=== PATIENT | male | born 1960 | race Caucasian/White ===

== ENCOUNTER 2021-01-17 09:09 | Outpatient (REF) | payer OTHER, SELFPAY ==
[2021-01-17 10:10] LABS: MANUAL DIFF FLAG NO
[2021-01-17 10:13] LABS: Basophils Absolute Auto 0.1 X10*3/uL (0.0-0.2); Basophils Percent Auto 0.8 % (0-2); Eosinophils Absolute Auto 0.2 X10*3/uL (0.0-0.4); Eosinophils Percent Auto 3.3 % (0-4); Hemoglobin 15.2 g/dl (14.0-18.0); Imm Gran Abs Auto 0.01 X10*3/uL (0.00-0.03); Imm Gran Pct Auto 0.2 % (0.0-0.4); Lymphocytes Absolute Auto 1.2 X10*3/uL (1.2-4.9); Lymphocytes Percent Auto 20.3 % (20-40); Mean Corpuscular HGB Conc 33.8 g/dl (31.0-36.0); Mean Corpuscular Hemoglobin 31.1 pg (27.0-33.0); Mean Platelet Volume 10.3 fL (9.4-12.4); Monocytes Absolute Auto 0.6 X10*3/uL (0.1-1.2); Monocytes Percent Auto 9.7 % (2-11); Neutrophils Percent Auto 65.7 % (45-73); Platelet Count 170 X10*3/uL (160-400); Red Blood Count 4.89 X10*6/uL (4.60-5.80); Red Cell Distribution Width 12.2 % (11.0-16.0); White Blood Count 6.1 X10*3/uL (4.8-10.8)
[2021-01-17 10:24] LABS: Estimated Average Glucose 103 mg/dL; Hemoglobin A1c % 5.2 %
[2021-01-17 10:44] LABS: Glucose Urine UA NEG (NEG); Leukocyte Esterase Urine NEG (NEG); Nitrite Urine NEG (NEG); Urine Blood NEG (NEG); Urine Ketones NEG (NEG); Urine Protein NEG (NEG-TRACE)
[2021-01-17 10:45] LABS: Appearance Urine CLEAR; Color Urine YELLOW
[2021-01-17 11:01] LABS: Alanine Aminotransferase 28 U/L (0-40); Albumin Level 4.4 g/dL (3.5-5.0); Alkaline Phosphatase 86 U/L (39-117); Anion Gap 12 (12-20); Aspartate Amino Transferase 32 U/L (5-37); Blood Urea Nitrogen 20 mg/dL (9-16); Calcium 9.3 mg/dL (8.4-10.2); Carbon Dioxide 28 mmol/L (22-29); Chloride 103 mmol/L (96-108); Cholesterol 137 mg/dL; Estimated Glomerular Filt Rate > 60; Glucose Fasting 111 mg/dL (60-99); HDL Cholesterol 61 mg/dL; LDL Cholesterol Calculated 69 mg/dl; Potassium 4.5 mmol/L (3.3-5.1); Sodium 138 mmol/L (135-145); Total Protein 6.8 g/dL (6.5-8.0); Triglycerides 39 mg/dL
[2021-01-17 11:02] LABS: Prostate Specific Antigen Scr 0.56 ng/mL (<0.05-4.0)
[2021-01-17 11:10] LABS: Creatinine Urine 132.92 mg/dL; Microalbum/Creatinine Ratio Ur 16.5 ug/mg cr
[2021-01-17 11:51] LABS: Reflex LDLD? No
== END 2021-01-17 09:10 | disposition home or self-care (01) ==
LOC: HO.LAB 09:09
PROVIDERS: PCP Internal Medicine; Visit Provider Internal Medicine
DX: Z00.00 Encounter for general adult medical examination without abnormal findings (principal); Z12.5 Encounter for screening for malignant neoplasm of prostate; R73.09 Other abnormal glucose; E78.5 Hyperlipidemia, unspecified; I10 Essential (primary) hypertension
CPT/HCPCS: 36415; 80053; 80061; 81003; 82043; 83036; 84153; 85025

== ENCOUNTER → 2021-03-13 09:46 | Outpatient (REF) | payer OTHER, SELFPAY ==
--- NOTE | 2021-03-13 09:51 | CA_ITS ---
Transthoracic Echocardiogram Patient (Last, First, Middle): Fredy Peterson W Gender: Male Date of : 1960 Age: 60 Procedure Date: 03/13/2021 Procedure Type: Transthoracic Echocardiogram Location: OP Height: 180.34 cm Weight: 108.86 kg BSA: 2.28 m2 Heart Rate: bpm BP: 120 / 84 mmHg School Psychology Professor: Referring MD: Tonny Mcdermott MD Symptoms: NONRHEUMATIC AORTIC VALVE INSUFFICIENCY. ANNUAL PE Study Quality: Good ECG Rhythm: Sinus Conclusions: - The left ventricular systolic function is normal. The visually estimated ejection fraction is between 60-65%. - There is moderate calcification of the aortic valve. There is moderate aortic valve stenosis. There is mild aortic valve regurgitation. Findings Left Ventricle Normal left ventricular cavity size. There is normal left ventricular wall thickness. The left ventricular systolic function is normal. The visually estimated ejection fraction is between 60-65%. There is no evidence of regional wall motion abnormalities. E/E prime ratio is >15, consistent with elevated filling pressures. Evidence suggests grade I (mild) diastolic dysfunction. Right Ventricle Normal right ventricular cavity size and systolic function. Atria Both atria are normal in size. Aortic Valve There is moderate calcification of the aortic valve. There is moderate aortic valve stenosis. The peak aortic velocity is 3.44 m/s with a calculated peak gradient of 47 mmHg. The mean gradient is 33 mmHg. The aortic valve area is 1.03 cm2. There is mild aortic valve regurgitation. Dimensionless index 0.36. Mitral Valve There is mild mitral annular calcification. There is trace mitral valve regurgitation. There is no mitral valve stenosis. Pulmonic Valve The pulmonic valve was not well visualized. Tricuspid Valve Normal tricuspid valve structure. There is trace tricuspid valve regurgitation. The pulmonary artery systolic pressure is normal. Great Vessels The aortic annulus, sinuses of valsalva, asc aorta, and aortic arch are normal in size. Venous The inferior vena cava is normal in size and collapses greater than 50% with inspiration. Pericardium/Pleural There is no evidence of pericardial effusion. Prior Study Comparison Changes noted compared to prior study dated: 10/26/2014. See comments on aortic valve. Measurements 2D Linear Measurements RVIDd: 4.06 RVIDd Index: 1.78 IVSd: 0.85 0.6-0.9/0.6-1.0 cm LVIDd: 5.21 3.9-5.3/4.2-5.9 cm LVIDd Index: 2.29 2.4-3.2/2.2-3.1 cm/m2 LVIDs: 3.39 2.0-3.6 cm LVPWd: 1.27 0.7-1.1 cm Ao Root: 3.20 2.1-3.5 cm LA Diam: 4.80 2.7-3.8/3.0-4.0 cm LAIDs Index: 2.11 1.5-2.3 cm/m2 LV Mass: 263.01 67-162/88-224 g LV Mass Index: 115.36 43-95/49-115 g/m2 LVOT Diam: 2.00 3.0+(-)1.3 cm 2D Systolic Function EF 4C: 53.00 >55% EF 2C: 58.20 >55% EF BiP: 55.90 >55% Mitral Valve MV Pk E: 1.02 MV PK A: 1.13 MV Decel Time: 268.00 E/A: 0.90 E'Lateral: 5.51 E'Medial: 4.93 E/E' Med: 20.70 E/E' Lat: 18.50 PHT: 78.00 MVA PHT: 2.82 Decel [place]: 3.82 Aortic Valve AoV Pk Hua: 3.44 AoV Mn Hua: 2.71 AoV VTI: 0.98 AoV Pk Grad: 47.00 Aov Mn Grad: 33.00 NAS Cont.VTI: 1.03 AI Pk Hua: 4.62 AI [place]: 1.76 LVOT LVOT Pk Hua: 1.19 LVOT Mn Hua: 0.94 LVOT VTI: 0.32 LVOT Pk Grad: 6.00 LVOT Mn Grad: 4.00 LVOT Diam: 2.00 LVOT Area: 3.14 Diastolic Function MV Pk E: 1.02 MV Pk A: 1.13 E/A: 0.90 E'Medial: 4.93 E/E' Med: 20.70 E' Laterial: 5.51 E/E' Lat: 18.50 Tricuspid Valve TR Pk Hua: 2.40 TR Pk Grad: 23.00 RA Press: 8.00 RVSP: 31.00 Great Vessels Aorta Ao Root-2D: 3.20 2.0-3.7 cm Ao Asc: 3.70 2.1-3.4 cm Ao Arch: 2.60 Updated in Other Vendor System with Status of Final Alberto Jones MD electronically signed on 03/17/2021 8:44:33 AM with status of Final
== END ==
LOC: HO.CARD 09:46
PROVIDERS: PCP Internal Medicine; Visit Provider Internal Medicine
DX: I35.1 Nonrheumatic aortic (valve) insufficiency (principal)
CPT/HCPCS: 93306

== ENCOUNTER 2021-08-01 06:42 | Outpatient (REF) | payer OTHER, SELFPAY ==
[2021-08-01 12:10] LABS: Alanine Aminotransferase 20 U/L (0-40); Albumin Level 4.2 g/dL (3.5-5.0); Alkaline Phosphatase 86 U/L (39-117); Aspartate Amino Transferase 28 U/L (5-37); Bilirubin Direct 0.4 mg/dL (0.0-0.5); Bilirubin Total 0.9 mg/dL (0.0-1.0); Cholesterol 152 mg/dL; Glucose Fasting 123 mg/dL (60-99); HDL Cholesterol 54 mg/dL; LDL Cholesterol Calculated 89 mg/dl; Total Protein 6.5 g/dL (6.5-8.0); Triglycerides 47 mg/dL
[2021-08-01 12:46] LABS: Reflex LDLD? No
[2021-08-04 13:06] LABS: Hemoglobin A1c % 5.3 %
[2021-08-04 13:07] LABS: Estimated Average Glucose 105 mg/dL
== END 2021-08-01 06:43 | disposition home or self-care (01) ==
LOC: HO.HMGCLDS 06:42
PROVIDERS: PCP Internal Medicine; Visit Provider Internal Medicine
DX: R73.03 Prediabetes (principal); E78.5 Hyperlipidemia, unspecified
CPT/HCPCS: 36415; 80061; 80076; 82947; 83036

== ENCOUNTER → 2021-10-14 08:51 | Outpatient (BNVA) | payer OTHER, SELFPAY | PROVIDERS: PCP Internal Medicine; Referring Provider Internal Medicine; Visit Provider Internal Medicine Cardiovascular Disease | DX: I35.0 Nonrheumatic aortic (valve) stenosis (principal); I10 Essential (primary) hypertension | CPT/HCPCS: 93005 ==

== ENCOUNTER 2021-11-25 10:40 | Outpatient (REF) | payer OTHER, SELFPAY | END 2021-11-25 10:41 | disposition home or self-care (01) | LOC: HO.HMGCLDS 10:40 | PROVIDERS: Visit Provider Internal Medicine | DX: Z20.822 Contact with and (suspected) exposure to COVID-19 (principal) | CPT/HCPCS: C9803; U0003; U0005 ==

== ENCOUNTER 2022-01-30 07:02 | Outpatient (REF) | payer OTHER, SELFPAY ==
[2022-01-30 11:25] LABS: Estimated Average Glucose 108 mg/dL; Hemoglobin A1c % 5.4 %
[2022-01-30 11:32] LABS: Alanine Aminotransferase 27 U/L (0-40); Albumin Level 4.3 g/dL (3.5-5.0); Alkaline Phosphatase 83 U/L (39-117); Aspartate Amino Transferase 35 U/L (5-37); Bilirubin Direct 0.4 mg/dL (0.0-0.5); Bilirubin Total 0.9 mg/dL (0.0-1.0); Cholesterol 147 mg/dL; Glucose Fasting 135 mg/dL (60-99); HDL Cholesterol 55 mg/dL; LDL Cholesterol Calculated 82 mg/dl; Triglycerides 51 mg/dL
== END 2022-01-30 07:03 | disposition home or self-care (01) ==
LOC: HO.HMGCLDS 07:02
PROVIDERS: PCP Internal Medicine; Visit Provider Internal Medicine
DX: E78.5 Hyperlipidemia, unspecified (principal); R73.09 Other abnormal glucose
CPT/HCPCS: 36415; 80061; 80076; 82947; 83036

== ENCOUNTER 2022-02-08 16:48 | Outpatient (REF) | payer OTHER, SELFPAY ==
[2022-02-08 16:53] LABS: MANUAL DIFF FLAG NO
[2022-02-08 17:01] LABS: Basophils Absolute Auto 0.1 X10*3/uL (0.0-0.2); Basophils Percent Auto 0.9 % (0-2); Eosinophils Absolute Auto 0.3 X10*3/uL (0.0-0.4); Eosinophils Percent Auto 3.9 % (0-4); Hematocrit 43.4 % (42.0-52.0); Hemoglobin 15.1 g/dl (14.0-18.0); Imm Gran Abs Auto 0.02 X10*3/uL (0.00-0.03); Imm Gran Pct Auto 0.3 % (0.0-0.4); Lymphocytes Absolute Auto 2.2 X10*3/uL (1.2-4.9); Lymphocytes Percent Auto 29.2 % (20-40); Mean Corpuscular HGB Conc 34.8 g/dl (31.0-36.0); Mean Corpuscular Hemoglobin 31.7 pg (27.0-33.0); Mean Corpuscular Volume 91.2 fL (80.0-98.0); Mean Platelet Volume 10.5 fL (9.4-12.4); Monocytes Absolute Auto 0.7 X10*3/uL (0.1-1.2); Monocytes Percent Auto 9.3 % (2-11); Neutrophils Absolute Auto 4.3 x10*3/uL (2.0-8.3); Neutrophils Percent Auto 56.4 % (45-73); Platelet Count 179 X10*3/uL (160-400); Red Blood Count 4.76 X10*6/uL (4.60-5.80); Red Cell Distribution Width 12.5 % (11.0-16.0); White Blood Count 7.7 X10*3/uL (4.8-10.8)
[2022-02-08 17:31] LABS: Blood Urea Nitrogen 18 mg/dL (9-16); Calcium 10.7 mg/dL (8.4-10.2); Estimated Glomerular Filt Rate > 60
[2022-02-08 17:39] LABS: Prostate Specific Antigen 0.54 ng/mL (<0.05-4.0)
== END 2022-02-08 16:49 | disposition home or self-care (01) ==
LOC: HO.LNP 16:48
PROVIDERS: Visit Provider Internal Medicine
DX: Z00.00 Encounter for general adult medical examination without abnormal findings (principal); Z12.5 Encounter for screening for malignant neoplasm of prostate
CPT/HCPCS: 82310; 82565; 84153; 84520; 85025

== ENCOUNTER 2022-03-20 10:51 | Outpatient (REF) | payer OTHER, SELFPAY ==
[2022-03-20 12:19] LABS: Calcium 9.5 mg/dL (8.4-10.2)
== END 2022-03-20 10:52 | disposition home or self-care (01) ==
LOC: HO.HMGCLDS 10:51
PROVIDERS: Visit Provider Internal Medicine
DX: E83.52 Hypercalcemia (principal)
CPT/HCPCS: 36415; 82310

== ENCOUNTER → 2022-04-19 08:11 | Outpatient (REF) | payer OTHER, SELFPAY ==
--- NOTE | 2022-04-19 08:19 | CA_ITS ---
Transthoracic Echocardiogram Patient (Last, First, Middle): Fredy Peterson W Gender: Male Date of : 1960 Age: 61 Procedure Date: 04/19/2022 Procedure Type: Transthoracic Echocardiogram Location: OP Height: 180.34 cm Weight: 108.86 kg BSA: 2.28 m2 Heart Rate: bpm BP: 160 / 100 mmHg Pot Reliner: TO Referring MD: Eric Gaytan MD Symptoms: I35.0 - Nonrheumatic aortic (valve) stenosis Study Quality: Adequate ECG Rhythm: Sinus Conclusions: - The left ventricular systolic function is normal. The calculated ejection fraction is 61% by biplane method. - There is moderate aortic valve stenosis. - There is mild dilatation of the ascending aorta measuring 4.10 cm. Findings Left Ventricle Normal left ventricular cavity size. There is mildly increased left ventricular wall thickness. The left ventricular systolic function is normal. The calculated ejection fraction is 61% by biplane method. There is no evidence of regional wall motion abnormalities. Diastolic function is normal for age. Right Ventricle Normal right ventricular cavity size and systolic function. Atria The left atrium is moderately dilated. The right atrium is normal in size. Aortic Valve There is moderate calcification of the aortic valve. There is moderate aortic valve stenosis. The peak aortic velocity is 3.86 m/s with a calculated peak gradient of 60 mmHg. The mean gradient is 37 mmHg. The aortic valve area is 1.19 cm2. There is mild aortic valve regurgitation. Dimensionless index 0.32. Highest gradient from apical window- 60mmHg. Mitral Valve The mitral valve appears normal. There is mild mitral annular calcification. There is no mitral valve regurgitation. There is no mitral valve stenosis. Pulmonic Valve The pulmonic valve is likely normal. Tricuspid Valve Normal tricuspid valve structure. There is trace tricuspid valve regurgitation. The pulmonary artery systolic pressure is normal. Great Vessels There is mild dilatation of the ascending aorta measuring 4.10 cm. Venous The inferior vena cava is normal in size and collapses greater than 50% with inspiration. Pericardium/Pleural There is no evidence of pericardial effusion. Prior Study Comparison Changes noted compared to prior study dated: 03/13/2021. Progression of aortic valve stenosis. Slight increase in ascending aortic size. Measurements 2D Linear Measurements IVSd: 1.43 0.6-0.9/0.6-1.0 cm LVIDd: 4.15 3.9-5.3/4.2-5.9 cm LVIDd Index: 1.82 2.4-3.2/2.2-3.1 cm/m2 LVIDs: 2.10 2.0-3.6 cm LVPWd: 1.32 0.7-1.1 cm LA Diam: 4.80 2.7-3.8/3.0-4.0 cm LAIDs Index: 2.11 1.5-2.3 cm/m2 LV Mass: 267.32 67-162/88-224 g LV Mass Index: 117.24 43-95/49-115 g/m2 LVOT Diam: 2.10 3.0+(-)1.3 cm 2D Systolic Function EF 4C: 66.10 >55% EF 2C: 55.70 >55% EF BiP: 60.50 >55% Mitral Valve MV Pk E: 0.96 MV PK A: 1.14 MV Decel Time: 268.00 E/A: 0.80 E'Lateral: 5.33 E'Medial: 4.79 E/E' Med: 20.10 E/E' Lat: 18.10 PHT: 79.00 MVA PHT: 2.78 Decel [place]: 3.59 Aortic Valve AoV Pk Hua: 3.86 AoV Mn Hua: 2.87 AoV VTI: 0.95 AoV Pk Grad: 60.00 Aov Mn Grad: 37.00 NAS Cont.VTI: 1.19 AI Pk Hua: 4.98 AI [place]: 3.02 LVOT LVOT Pk Hua: 1.31 LVOT Mn Hua: 0.93 LVOT VTI: 0.33 LVOT Pk Grad: 7.00 LVOT Mn Grad: 4.00 LVOT Diam: 2.10 LVOT Area: 3.46 Diastolic Function MV Pk E: 0.96 MV Pk A: 1.14 E/A: 0.80 E'Medial: 4.79 E/E' Med: 20.10 E' Laterial: 5.33 E/E' Lat: 18.10 Right Ventricle TAPSE (mm): 32.00 TVS' Hua: 14.00 Tricuspid Valve TR Pk Hua: 1.79 TR Pk Grad: 13.00 RA Press: 3.00 RVSP: 16.00 Great Vessels Aorta Ao Asc: 4.10 2.1-3.4 cm Updated in Other Vendor System with Status of Final Alberto Jones MD electronically signed on 04/20/2022 4:39:24 PM with status of Final
== END ==
LOC: HO.CARD 08:11
PROVIDERS: PCP Internal Medicine; Visit Provider Internal Medicine Cardiovascular Disease
DX: I35.0 Nonrheumatic aortic (valve) stenosis (principal)
CPT/HCPCS: 93306

== ENCOUNTER → 2022-04-22 15:08 | Outpatient (BNVA) | payer OTHER, SELFPAY | PROVIDERS: PCP Internal Medicine; Referring Provider Internal Medicine; Visit Provider Internal Medicine Cardiovascular Disease | DX: R06.02 Shortness of breath (principal) ==

== ENCOUNTER → 2022-05-14 08:55 | Outpatient (REF) | payer OTHER, SELFPAY ==
--- NOTE | ~2022-05-14 | NM_ITS ---
Exercise Myocardial perfusion study Indication: Chest pain to evaluate for myocardial ischemia Technique: The patient was brought in for an exercise perfusion study on 05/14/2022. Patient performed exercise as per Yang protocol and was injected 35 mCi of sestamibi was given intravenously one target HR was achieved. Images were obtained using the SPECT gamma camera interlaced with the gating device. Images were obtained in supine position. Resting perfusion study was performed on 05/17/2022. Patient was administered 35 mCi of sestamibi intravenously at rest. Images were then obtained in supine position. Images obtained with and without CT attenuation. Total DLP 104 mGy-cm. Images were processed with the software and compared side to side in short axis, horizontal long axis and vertical long axis views. Findings: The stress perfusion study showed non attenuated images show small area of mildly reduced uptake in the basal inferior wall of the LV myocardium. Remainder of the LV myocardium is normally perfused. Attenuation corrected images show normal uptake of radiotracer in all segments of LV myocardium. The gated study shows normal LV systolic function with calculated LVEF of 74%. LV cavity is normal in size. The gated study shows normal systolic wall thickening and contraction of all segments. There is no transient ischemic dilation. Resting study shows no change in perfusion pattern compared to stress perfusion study. Gating at rest reveals normal systolic wall motion with ejection fraction at 73%. The findings are consistent with normal myocardial perfusion. NM/NM cardiolite stress test Impression: 1. Normal myocardial perfusion 2. Gated LVEF is 74% 3. Transient ischemic dilatation not present Stress EKG is positive for ischemia
--- NOTE | 2022-05-14 08:57 | CA_ITS ---
Acquisition Time: 2022-05-14 09:01:39 Total Exercise Time: 00:07:10 Test Indications: Dyspnea Medications: ASA ATORVASTATIN LISINOPRIL/HCTZ Protocol: JEANNA Max HR: 137 BPM 87% of Pred: 157 BPM Max BP: 194/080 mmHG Max Work Load: 8.9 METS Exercise stress test with exercise 7 min 10 sec of Jeanna protocol, achieving 87% MPHR, 8.8 METs with report of moderate sob, 7/10 lung burning ( upper chest), with isolated PACs and PVCs, with normotensive response to exercise, with EKG abnormality at baseline ( downsloping ST with T inversion inferiorly and V5-V6) then with ST depression in those leads during exercise: 2 mm lead II, 1.5mm leads III, aVF, V6 and 1 mm V5 with gradual improvement in recovery, back to baseline. His lung burning gradually improved and resolved in recovery. When baseline and test end EKGs rechecked in an actual 12 lead placement, instead of stress mechanic general operational test placement, the EKGs show ST/ T wave abn lateral leads and lead II. Nuclear images pending. Test reviewed with Dr Gaytan Referred By: Eric Gaytan Overread By: TIFFANEI KWON
== END ==
LOC: HO.CARD 08:55
PROVIDERS: Visit Provider Internal Medicine Cardiovascular Disease
DX: R07.9 Chest pain, unspecified (principal); I35.0 Nonrheumatic aortic (valve) stenosis; R06.02 Shortness of breath
CPT/HCPCS: 78452; 93017; A9500

== ENCOUNTER 2022-06-07 15:21 | Outpatient (REF) | payer OTHER, SELFPAY ==
[2022-06-07 16:12] LABS: Hematocrit 40.2 % (42.0-52.0); Hemoglobin 13.9 g/dl (14.0-18.0); Mean Corpuscular HGB Conc 34.6 g/dl (31.0-36.0); Mean Corpuscular Hemoglobin 31.2 pg (27.0-33.0); Mean Corpuscular Volume 90.1 fL (80.0-98.0); Mean Platelet Volume 10.3 fL (9.4-12.4); Platelet Count 187 X10*3/uL (160-400); Red Blood Count 4.46 X10*6/uL (4.60-5.80); Red Cell Distribution Width 12.5 % (11.0-16.0); White Blood Count 6.6 X10*3/uL (4.8-10.8)
[2022-06-07 16:29] LABS: Prothrombin Time 11.2 SEC (10.0-13.1)
[2022-06-07 16:57] LABS: Anion Gap 12 (12-20); Blood Urea Nitrogen 17 mg/dL (9-16); Calcium 9.6 mg/dL (8.4-10.2); Carbon Dioxide 26 mmol/L (22-29); Chloride 106 mmol/L (96-108); Estimated Glomerular Filt Rate > 60; Glucose Random 91 mg/dL (60-115); Sodium 140 mmol/L (135-145)
== END 2022-06-07 15:22 | disposition home or self-care (01) ==
LOC: HO.LAB 15:21
PROVIDERS: PCP Internal Medicine; Visit Provider Internal Medicine Cardiovascular Disease
DX: I35.0 Nonrheumatic aortic (valve) stenosis (principal)
CPT/HCPCS: 36415; 80048; 85027; 85610

== ENCOUNTER → 2022-07-19 10:07 | Outpatient (BNVA) | payer SELFPAY | PROVIDERS: PCP Internal Medicine; Visit Provider Physician Assistant Medical | DX: Z02.79 Encounter for issue of other medical certificate (principal) ==

== ENCOUNTER 2022-08-05 15:41 | Outpatient (REF) | payer OTHER, SELFPAY ==
--- NOTE | 2022-08-05 17:12 | PFT_ITS ---
FLOWS: FEV1 74% of predicted at 2.69 L. FVC 67% of predicted at 3.25 L. FEV1 to FVC ratio of 0.83. Positive bronchodilator response. LUNG VOLUMES: Total lung capacity 70% of predicted at 5.09 L. Residual volume 80% of predicted at 1.91 L. Slow vital capacity 65% of predicted at 3.18 L. Expiratory reserve volume 9% of predicted at 0.14 L. Diffusion capacity is mildly decreased, diffusion capacity corrects to normal after adjustment for alveolar ventilation. IMPRESSION: Moderate restrictive ventilatory defect with positive bronchodilator response. Decreased expiratory reserve volume suggests extrathoracic restriction likely secondary to abdominal obesity. Willie Alberto MD AP/MODL / [id number]
== END 2022-08-05 15:42 | disposition home or self-care (01) ==
LOC: HO.RESP 15:41
PROVIDERS: PCP Internal Medicine; Visit Provider Nurse Practitioner Family
DX: R06.02 Shortness of breath (principal)
CPT/HCPCS: 94060; 94727; 94729

== ENCOUNTER 2022-08-14 10:41 | Outpatient (REF) | payer OTHER, SELFPAY ==
[2022-08-14 11:27] LABS: Estimated Average Glucose 114 mg/dL; Hemoglobin A1c % 5.6 %
[2022-08-14 11:48] LABS: Alanine Aminotransferase 26 U/L (0-40); Albumin Level 4.2 g/dL (3.5-5.0); Alkaline Phosphatase 86 U/L (39-117); Aspartate Amino Transferase 31 U/L (5-37); Bilirubin Direct 0.4 mg/dL (0.0-0.5); Bilirubin Total 0.9 mg/dL (0.0-1.0); Cholesterol 134 mg/dL; Glucose Fasting 112 mg/dL (60-99); HDL Cholesterol 53 mg/dL; LDL Cholesterol Calculated 73 mg/dl; Total Protein 6.6 g/dL (6.5-8.0); Triglycerides 42 mg/dL
== END 2022-08-14 10:42 | disposition home or self-care (01) ==
LOC: HO.HMGCLDS 10:41
PROVIDERS: PCP Internal Medicine; Visit Provider Internal Medicine
DX: R73.03 Prediabetes (principal); E78.5 Hyperlipidemia, unspecified
CPT/HCPCS: 36415; 80061; 80076; 82947; 83036

== ENCOUNTER 2022-10-19 15:11 | Outpatient (REF) | payer OTHER, SELFPAY ==
--- NOTE | ~2022-10-19 | XR_ITS ---
EXAMINATION: XR CHEST CLINICAL INFORMATION: Shortness of breath. COMPARISON: Previous dated 06/05/2010. TECHNIQUE: 2 views of the chest were obtained. FINDINGS: There is no acute finding here. Lung mcgee are grossly clear. No obvious failure or infiltrate. There is no effusion. The hilar structures are felt to be comparable to previous. The cardiac silhouette is comparable. Calcification in the aortic arch is noted on this study. Degenerative change in the thoracic spine with some mildly flowing osteophytes noted. XR/XR chest 2V IMPRESSION: No acute finding.
== END 2022-10-19 15:12 | disposition home or self-care (01) ==
LOC: HO.XRAY 15:11
PROVIDERS: PCP Internal Medicine; Visit Provider Internal Medicine
DX: R06.02 Shortness of breath (principal)
CPT/HCPCS: 71046

== ENCOUNTER → 2022-12-01 14:46 | Outpatient (REF) | payer OTHER, SELFPAY ==
--- NOTE | 2022-12-01 14:49 | CA_ITS ---
Transthoracic Echocardiogram Patient (Last, First, Middle): Fredy Peterson W Gender: Male Date of : 1960 Age: 62 Procedure Date: 12/01/2022 Procedure Type: Transthoracic Echocardiogram Location: OP Height: 180.34 cm Weight: 111.13 kg BSA: 2.30 m2 Heart Rate: bpm BP: 124 / 68 mmHg Vending Machine Technician: LILI Referring MD: Jo-Ann Mcdaniels SORTING MACHINE OPERATORDemond Symptoms: I35.0 - Nonrheumatic aortic (valve) stenosis Study Quality: Adequate ECG Rhythm: Sinus Conclusions: - The left ventricular systolic function is normal. The calculated ejection fraction is 62% by biplane method. - There is severe aortic valve stenosis. - There is mild dilatation of the ascending aorta measuring 4.20 cm. Findings Left Ventricle Normal left ventricular cavity size. There is moderately increased left ventricular wall thickness. The left ventricular systolic function is normal. The calculated ejection fraction is 62% by biplane method. There is no evidence of regional wall motion abnormalities. Evidence suggests grade I (mild) diastolic dysfunction. Right Ventricle Normal right ventricular cavity size and systolic function. Atria The left atrium is moderately dilated. The right atrium is normal in size. Aortic Valve There is severe calcification of the aortic valve. There is severe aortic valve stenosis. The peak aortic velocity is 4.18 m/s with a calculated peak gradient of 70 mmHg. The mean gradient is 41 mmHg. The aortic valve area is 1.20 cm2. There is trace (trivial) aortic valve regurgitation. Dimensionless index 0.27. Calculated valve area larger than expected at 1.2 sq cm, but LVOT diameter was also measured at 2.3 cm. This could be technical. Mitral Valve The mitral valve appears normal. There is mild mitral annular calcification. There is trace mitral valve regurgitation. There is no mitral valve stenosis. Pulmonic Valve The pulmonic valve is likely normal. Tricuspid Valve Normal tricuspid valve structure. There is trace tricuspid valve regurgitation. Great Vessels There is mild dilatation of the ascending aorta measuring 4.20 cm. Venous The inferior vena cava is normal in size and collapses greater than 50% with inspiration. Pericardium/Pleural There is a trivial pericardial effusion. Prior Study Comparison Changes noted compared to prior study dated: 04/19/2022. Progression of aortic valve stenosis. Measurements 2D Linear Measurements IVSd: 1.57 0.6-0.9/0.6-1.0 cm LVIDd: 4.45 3.9-5.3/4.2-5.9 cm LVIDd Index: 1.93 2.4-3.2/2.2-3.1 cm/m2 LVIDs: 2.86 2.0-3.6 cm LVPWd: 1.53 0.7-1.1 cm Ao Root: 3.50 2.1-3.5 cm LA Diam: 5.00 2.7-3.8/3.0-4.0 cm LAIDs Index: 2.17 1.5-2.3 cm/m2 LV Mass: 355.94 67-162/88-224 g LV Mass Index: 154.76 43-95/49-115 g/m2 LVOT Diam: 2.30 3.0+(-)1.3 cm 2D Systolic Function EF 4C: 63.00 >55% EF 2C: 58.90 >55% EF BiP: 61.90 >55% Mitral Valve MV VTI: 0.46 MV Pk Hua: 1.21 MV Mn Hua: 0.70 MV Pk Grad: 6.00 MV Mn Grad: 2.00 MV Pk E: 0.89 MV PK A: 1.14 MV Decel Time: 215.00 E/A: 0.80 E'Lateral: 4.24 E'Medial: 4.90 E/E' Med: 18.20 E/E' Lat: 21.10 PHT: 63.00 MVA PHT: 3.49 MVA Continuity: 2.75 Decel [place]: 4.16 Aortic Valve AoV Pk Hua: 4.18 AoV Mn Hua: 2.98 AoV VTI: 1.05 AoV Pk Grad: 70.00 Aov Mn Grad: 41.00 NAS Cont.VTI: 1.20 LVOT LVOT Pk Hua: 1.14 LVOT Mn Hua: 0.83 LVOT VTI: 0.30 LVOT Pk Grad: 5.00 LVOT Mn Grad: 3.00 LVOT Diam: 2.30 LVOT Area: 4.15 Diastolic Function MV Pk E: 0.89 MV Pk A: 1.14 E/A: 0.80 E'Medial: 4.90 E/E' Med: 18.20 E' Laterial: 4.24 E/E' Lat: 21.10 Right Ventricle TAPSE (mm): 29.10 TVS' Hua: 11.60 Tricuspid Valve TR Pk Hua: 2.06 TR Pk Grad: 17.00 Great Vessels Aorta Ao Root-2D: 3.50 2.0-3.7 cm Ao Asc: 4.20 2.1-3.4 cm Pulmonary Valve PV Pk Hua: 1.18 Peak PV Grad: 6.00 Updated in Other Vendor System with Status of Final Alberto Jones MD electronically signed on 12/03/2022 12:34:39 PM with status of Final
== END ==
LOC: HO.CARD 14:46
PROVIDERS: PCP Internal Medicine; Visit Provider Nurse Practitioner Family
DX: I35.0 Nonrheumatic aortic (valve) stenosis (principal); R06.02 Shortness of breath
CPT/HCPCS: 93306

== ENCOUNTER → 2022-12-28 15:09 | Outpatient (BNVA) | payer OTHER, SELFPAY | PROVIDERS: PCP Internal Medicine; Referring Provider Internal Medicine; Visit Provider Internal Medicine Cardiovascular Disease | DX: Z13.89 Encounter for screening for other disorder (principal) ==

== ENCOUNTER 2023-02-05 08:15 | Outpatient (REF) | payer OTHER, SELFPAY ==
[2023-02-05 11:19] LABS: MANUAL DIFF FLAG NO
[2023-02-05 11:20] LABS: Appearance Urine Clear; Color Urine Yellow; Glucose Urine UA Negative (Negative); Leukocyte Esterase Urine Negative (Negative); Nitrite Urine Negative (Negative); PH 5.5 (5.0-9.0); Urine Blood Negative (Negative); Urine Ketones Negative (Negative); Urine Protein Negative (Neg-Trace)
[2023-02-05 11:26] LABS: Basophils Absolute Auto 0.1 X10*3/uL (0.0-0.2); Basophils Percent Auto 0.8 % (0-2); Eosinophils Absolute Auto 0.2 X10*3/uL (0.0-0.4); Hematocrit 41.1 % (42.0-52.0); Hemoglobin 14.4 g/dl (14.0-18.0); Imm Gran Abs Auto 0.02 X10*3/uL (0.00-0.03); Imm Gran Pct Auto 0.3 % (0.0-0.4); Lymphocytes Absolute Auto 1.1 X10*3/uL (1.2-4.9); Lymphocytes Percent Auto 18.8 % (20-40); Mean Corpuscular Hemoglobin 31.4 pg (27.0-33.0); Mean Corpuscular Volume 89.7 fL (80.0-98.0); Mean Platelet Volume 10.9 fL (9.4-12.4); Monocytes Absolute Auto 0.5 X10*3/uL (0.1-1.2); Monocytes Percent Auto 8.3 % (2-11); Neutrophils Absolute Auto 4.1 x10*3/uL (2.0-8.3); Neutrophils Percent Auto 67.8 % (45-73); Platelet Count 165 X10*3/uL (160-400); Red Blood Count 4.58 X10*6/uL (4.60-5.80); Red Cell Distribution Width 12.3 % (11.0-16.0)
[2023-02-05 11:36] LABS: Estimated Average Glucose 114 mg/dL; Hemoglobin A1c % 5.6 %
[2023-02-05 11:42] LABS: Alanine Aminotransferase 24 U/L (0-40); Albumin Level 4.1 g/dL (3.5-5.0); Alkaline Phosphatase 90 U/L (39-117); Anion Gap 11 (12-20); Aspartate Amino Transferase 31 U/L (5-37); Bilirubin Total 0.8 mg/dL (0.0-1.0); Blood Urea Nitrogen 17 mg/dL (9-16); Calcium 8.9 mg/dL (8.4-10.2); Carbon Dioxide 26 mmol/L (22-29); Chloride 104 mmol/L (96-108); Cholesterol 152 mg/dL; Estimated Glomerular Filt Rate > 60; Glucose Fasting 133 mg/dL (60-99); HDL Cholesterol 55 mg/dL; LDL Cholesterol Calculated 88 mg/dl; Potassium 3.9 mmol/L (3.3-5.1); Sodium 137 mmol/L (135-145); Total Protein 6.3 g/dL (6.5-8.0); Triglycerides 46 mg/dL
[2023-02-05 11:58] LABS: PSA,Total (Free>4and<10) 0.53 ng/mL (0.00-4.00)
[2023-02-05 12:01] LABS: Creatinine Urine 133.47 mg/dL; Microalbum/Creatinine Ratio Ur 32.2 ug/mg cr
== END 2023-02-05 08:16 | disposition home or self-care (01) ==
LOC: HO.HMGCLDS 08:15
PROVIDERS: PCP Internal Medicine; Visit Provider Internal Medicine
DX: Z00.00 Encounter for general adult medical examination without abnormal findings (principal); Z12.5 Encounter for screening for malignant neoplasm of prostate; E78.5 Hyperlipidemia, unspecified; I10 Essential (primary) hypertension; R73.03 Prediabetes
CPT/HCPCS: 36415; 80053; 80061; 81003; 82043; 83036; 84153; 85025

== ENCOUNTER → 2023-03-01 15:13 | Outpatient (BNVA) | payer OTHER, SELFPAY | PROVIDERS: PCP Internal Medicine; Referring Provider Internal Medicine; Visit Provider Internal Medicine Cardiovascular Disease | DX: Z13.89 Encounter for screening for other disorder (principal) ==

== ENCOUNTER 2023-04-15 09:42 | Outpatient (REF) | payer OTHER, SELFPAY ==
--- NOTE | ~2023-04-15 | US_ITS ---
EXAMINATION: US EXTRACRANIAL CAROTID DUPLEX, BILATERAL CLINICAL INFORMATION: Carotid bruit. History of smoking, hypertension, hyperlipidemia COMPARISON: None available. TECHNIQUE: Real-time ultrasound and Doppler techniques (integrating B-mode 2-D vascular images, Doppler spectral analysis and color-flow Doppler imaging) were utilized to interrogate the extracranial carotid arteries, the vertebral arteries and proximal subclavian arteries bilaterally. The degree of stenosis is determined by criteria similar to NASCET. FINDINGS: Right Side: 1. There is mild atherosclerotic plaque seen in the bifurcation/proximal ICA region. 2. The common carotid artery PSV proximally is 103 cm/s and distally 90 cm/s. 3. The proximal internal carotid artery velocities are 63 cm/s systolic and 16 cm/s diastolic. 4. The proximal external carotid artery PSV is 83 cm/s. 5. The vertebral artery shows antegrade flow. 6. The subclavian artery waveforms are normal. Left Side: 1. There is mild atherosclerotic plaque seen in the bifurcation/proximal ICA region. 2. The common carotid artery PSV proximally is 90 cm/s and distally 70 cm/s. 3. The proximal internal carotid artery velocities are 87 cm/s systolic and 26 cm/s diastolic. 4. The proximal external carotid artery PSV is 97 cm/s. 5. The vertebral artery shows antegrade flow. 6. The subclavian artery waveforms are normal. Incidental note made of an irregular cardiac rhythm. US/US carotid duplex BI IMPRESSION: 1. RIGHT: Minimal, non-hemodynamically significant stenosis of the proximal right internal carotid artery corresponding to a 0-49% stenosis by velocity criteria. 2. LEFT: Minimal, non-hemodynamically significant stenosis of the proximal left internal carotid artery corresponding to a 0-49% stenosis by velocity criteria. 3. Incidental note made of an irregular cardiac rhythm.
== END 2023-04-15 09:43 | disposition home or self-care (01) ==
LOC: HO.HMGCX 09:42
PROVIDERS: PCP Internal Medicine; Visit Provider Thoracic Surgery (Cardiothoracic Vascular Surgery)
DX: I35.9 Nonrheumatic aortic valve disorder, unspecified (principal); R09.89 Other specified symptoms and signs involving the circulatory and respiratory systems
CPT/HCPCS: 93880

== ENCOUNTER 2023-06-06 14:56 | Outpatient (AMB) | payer OTHER, SELFPAY ==
--- NOTE | 2023-06-06 14:57 | MHC.OFFVIS ---
Intake Vital Signs 06/06/23 14:58 Height 5 ft 11 in Weight 229 lb 4.492 oz BMI 32.0 BP 122/78 Blood Pressure Location Lt brachial Position Sitting Pulse 62 Intake Visit Reasons: 3 month follow-up Intake Note: Follow-up post May 03 TAVR c/o fatigue and some pain in chest Financial Aid Counselor Required: No Allergies Penicillins Allergy (Intermediate, Verified 07/07/22 13:24) RASH Medication List - Last Reconciled 06/06/23 by Eric Gaytan MD amiodarone 200 mg PO BID aspirin (Ecotrin Low Strength) 81 mg PO DAILY atorvastatin 40 mg PO DAILY lisinopril-hydrochlorothiazide 10-12.5 mg 1 tab PO DAILY HPI HPI Comments History of Present Illness Details Ed comes for follow-up after recent cannot surgery very underwent aortic valve replacement with a 25 mm bioprosthetic valve. Unfortunately surgery was complicated with bleeding at the aortotomy site requiring redo surgery for cardiac tamponade. Patient been was released home after 7 days of hospitalization with aspirin, amiodarone for prophylaxis and his usual blood pressure medications. He has done well since then. Continues to have symptoms of tiredness. Denies any worsening shortness of breath, orthopnea, PND, leg edema, palpitations. He is scheduled to undergo cardiac rehabilitation starting tomorrow. Schedule for echocardiogram in 2 weeks from now. He denies any overt bleeding issues. [facility] Medical History Aortic stenosis HTN (hypertension) Hyperlipidemia Pancreatitis Peyronie's disease Sleep apnea Surgical History (Updated 06/06/23 @ 15:39 by Eric Gaytan MD) Aortic valve replaced H/O colonoscopy Hx laparoscopic cholecystectomy S/P cardiac catheterization Family History Father No problems noted. Mother AML (acute myeloblastic leukemia) Brother CAD (coronary artery disease) Social History Alcohol intake: never Patient Tobacco Use Status: Former Tobacco user Review of Systems Const Denies chills, Denies fatigue, Denies fever(s), Denies frequent falls, Denies weakness, Denies weight gain and Denies weight loss ENT Denies dizziness Card Denies chest pain, Denies leg edema, Denies lightheadedness, Denies palpitations, Denies dyspnea, Denies dyspnea on exertion, Denies orthopnea and Denies other (loss of consciousness) Resp Denies cough, Denies dyspnea and Denies dyspnea on exertion GI Denies hematochezia and Denies change in stool character Musc Denies abnormal gait, Denies muscle weakness, Denies numbness, Denies radiating pain into limb and Denies tingling Neuro Denies abnormal gait, Denies dizziness, Denies frequent falls, Denies numbness, Denies tingling and Denies weakness Endo Denies fatigue and Denies palpitations Physical Exam Vital Signs: Last Vital Signs Pulse 62 06/06/23 14:58 BP 122/78 06/06/23 14:58 BMI result Body Mass Index 32.0 Const General: cooperative, healthy appearing, comfortable and no acute distress Orientation/consciousness: patient oriented x3 Neck Neck: Yes normal visual inspection and Yes no JVD Chest Chest palpation & inspection: other (Well-healed sternotomy site) Resp Effort & Inspection: normal respiratory effort Auscultation: clear to auscultation bilaterally, no crackles, no rales, no rhonchi and no wheezes Cardio Jugular venous distension: no JVD Palpation: normal PMI Rate: regular rate Rhythm: regular rhythm Heart sounds: S1 normal heart sound present, no gallops, no murmurs and no rubs Peripheral pulses: Peripheral pulses 2+ throughout Neuro General: patient oriented x3 Extrem General: Yes normal to inspection and No no pedal edema Psych Appearance: grossly normal Mental Status: mental status grossly normal Speech and movement: Normal speech and movement present Assessment & Plan Assessment & Plan (1) Aortic valve replaced: Comment: 25 mm Inspiris valve Code(s): Z95.2 - Presence of prosthetic heart valve Plan: Patient status post bioprosthetic aortic valve replaced for severe calcific aortic stenosis with a trileaflet valve. Patient is doing well. The sternal wound seems to have healed well. Patient continues to have some symptoms of fatigue which could be related to anemia. Advised to check CBC and BMP. If anemic start iron therapy. Continue amiodarone as planned for total of for total of 6 weeks since surgery. Can be stopped after that. Echocardiogram to assess for valve function as well as LV systolic and diastolic function. Continue low-dose aspirin therapy for life. Continue aggressive vascular risk factor modification target goal LDL less than 100 mg/dL. SBE prophylaxis as per ACC/aha guidelines. Continue aggressive blood pressure control which is currently well optimized. Recommend phase 2 cardiac rehabilitation which is going to participate in. If echo is reasonable patient is optimized to go back to work without restriction. Will follow up in the clinic in 6 months time, sooner p.r.n.. Thank you for allowing me to partake in his care Coding Level of Care Code Est Pt Level 4 (70371) Diagnoses Aortic valve replaced Z95.2
[2023-06-06 14:58] VITALS: BP 122/78; PULSE 62; BMI 32.0
== END 2023-06-06 15:45 | disposition home or self-care (01) ==
PROVIDERS: Visit Provider Internal Medicine Cardiovascular Disease
DX: Z95.2 Presence of prosthetic heart valve (principal)
CPT/HCPCS: 99214

== ENCOUNTER → 2023-06-06 14:56 | Outpatient (BNVA) | payer OTHER, SELFPAY | PROVIDERS: Visit Provider Internal Medicine Cardiovascular Disease ==

== ENCOUNTER → 2023-06-21 07:39 | Outpatient (REF) | payer OTHER, SELFPAY ==
--- NOTE | 2023-06-21 07:43 | CA_ITS ---
Transthoracic Echocardiogram Patient (Last, First, Middle): Fredy Peterson W Gender: Male Date of : 1960 Age: 62 Procedure Date: 06/21/2023 Procedure Type: Transthoracic Echocardiogram Location: OP Height: 180.34 cm Weight: 104.33 kg BSA: 2.24 m2 Heart Rate: bpm BP: 128 / 70 mmHg Refrigeration Technician: Referring MD: Eric Gaytan MD Weaver [place]: Eric Gaytan MD Symptoms: s/p AVR Study Quality: Adequate ECG Rhythm: Sinus Conclusions: - 1. Normal LV ejection fraction of 60-65% with moderate LVH and grade 2 diastolic dysfunction 2. Normally function bioprosthetic aortic valve with mean gradient of 7 mmHg 3. Mildly dilated left atrium 4. Normal RV systolic pressure 5. Mildly dilated ascending aorta at 4.3 cm 6. No pericardial effusion Findings Left Ventricle Normal left ventricular size and systolic function. There is moderately increased left ventricular wall thickness. The visually estimated ejection fraction is between 60-65%. Spectral Doppler is indicative of a pseudonormal filling pattern. E/E prime ratio is >15, consistent with elevated filling pressures. Evidence suggests grade II (moderate) diastolic dysfunction. Right Ventricle Normal right ventricular cavity size and systolic function. Atria The left atrium is mildly dilated. There is no evidence of interatrial shunt. The right atrium is normal in size. Aortic Valve A bioprosthetic aortic valve is present. The prosthetic aortic valve appears to be functioning normally. The mean gradient is 7 mmHg. There is trace (trivial) aortic valve regurgitation. The bioprosthetic valve is well seated without abnormal rocking motion. Mitral Valve Normal mitral valve structure and function. There is trace mitral valve regurgitation. There is no mitral valve stenosis. Pulmonic Valve The pulmonic valve is likely normal. There is trace pulmonic valve regurgitation. Tricuspid Valve Normal tricuspid valve structure. There is mild tricuspid valve regurgitation. The right ventricular systolic pressure is normal. The right ventricular systolic pressure is 26 mmHg. Normal right atrial pressure. There is no evidence of pulmonary hypertension. Great Vessels The pulmonary artery was not well visualized. There is mild dilatation of the ascending aorta measuring 4.30 cm. Venous The inferior vena cava is normal in size and collapses greater than 50% with inspiration. Pericardium/Pleural There is no evidence of pericardial effusion. Prior Study Comparison Changes noted compared to prior study dated: 12/01/2022. Normally function bioprosthetic aortic valve is present in place of severe aortic stenosis Measurements 2D Linear Measurements IVSd: 1.46 0.6-0.9/0.6-1.0 cm LVIDd: 4.71 3.9-5.3/4.2-5.9 cm LVIDd Index: 2.10 2.4-3.2/2.2-3.1 cm/m2 LVIDs: 3.01 2.0-3.6 cm LVPWd: 1.46 0.7-1.1 cm Ao Root: 2.90 2.1-3.5 cm LA Diam: 4.70 2.7-3.8/3.0-4.0 cm LAIDs Index: 2.10 1.5-2.3 cm/m2 LV Mass: 353.30 67-162/88-224 g LV Mass Index: 157.72 43-95/49-115 g/m2 LVOT Diam: 2.00 3.0+(-)1.3 cm Mitral Valve MV VTI: 0.59 MV Pk Hua: 1.35 MV Mn Hua: 0.70 MV Pk Grad: 7.00 MV Mn Grad: 2.00 MV Pk E: 1.24 MV Decel Time: 245.00 E'Lateral: 6.20 E'Medial: 4.03 E/E' Med: 30.80 E/E' Lat: 20.00 PHT: 72.00 MVA PHT: 3.06 MVA Continuity: 1.68 Decel [place]: 5.06 Aortic Valve AoV Pk Hua: 1.93 AoV Mn Uha: 1.21 AoV VTI: 0.49 AoV Pk Grad: 15.00 Aov Mn Grad: 7.00 NAS Cont.VTI: 2.03 LVOT LVOT Pk Hua: 1.19 LVOT Mn Hua: 0.80 LVOT VTI: 0.32 LVOT Pk Grad: 6.00 LVOT Mn Grad: 3.00 LVOT Diam: 2.00 LVOT Area: 3.14 Diastolic Function MV Pk E: 1.24 E'Medial: 4.03 E/E' Med: 30.80 E' Laterial: 6.20 E/E' Lat: 20.00 Right Ventricle TAPSE (mm): 18.00 TVS' Hua: 9.00 Tricuspid Valve TR Pk Hua: 2.42 TR Pk Grad: 23.00 RA Press: 3.00 RVSP: 26.00 Great Vessels Aorta Ao Root-2D: 2.90 2.0-3.7 cm Ao Asc: 4.30 2.1-3.4 cm Pulmonary Valve PV Pk Hua: 0.94 Peak PV Grad: 4.00 Updated in Other Vendor System with Status of Final Eric Gaytan MD electronically signed on 06/22/2023 12:41:19 PM with status of Final
== END ==
LOC: HO.CARD 07:39
PROVIDERS: Visit Provider Internal Medicine Cardiovascular Disease
DX: I35.0 Nonrheumatic aortic (valve) stenosis (principal); Z95.3 Presence of xenogenic heart valve
CPT/HCPCS: 93306

== ENCOUNTER → 2023-06-21 07:43 | Outpatient (BNV) | payer OTHER, SELFPAY | PROVIDERS: Visit Provider Internal Medicine Cardiovascular Disease | DX: I36.1 Nonrheumatic tricuspid (valve) insufficiency (principal) | CPT/HCPCS: 93306 ==

== ENCOUNTER 2023-07-16 08:19 | Outpatient (REF) | payer OTHER, SELFPAY ==
[2023-07-16 11:50] LABS: Cholesterol 130 mg/dL; HDL Cholesterol 50 mg/dL; LDL Cholesterol Calculated 73 mg/dl; Triglycerides 36 mg/dL
[2023-07-16 11:54] LABS: Alanine Aminotransferase 19 U/L (0-40); Alkaline Phosphatase 100 U/L (39-117); Aspartate Amino Transferase 24 U/L (5-37); Bilirubin Direct 0.3 mg/dL (0.0-0.5); Bilirubin Total 0.6 mg/dL (0.0-1.0); Iron 82 mcg/dL (45-160); Percent Iron Saturation 29 % (15-50); Total Iron Binding Capacity 283 mcg/dL (228-428); Total Protein 6.5 g/dL (6.5-8.0); Unsaturated Iron Binding 201 ug/dL
[2023-07-16 12:41] LABS: Reflex LDLD? No
== END 2023-07-16 08:20 | disposition home or self-care (01) ==
LOC: HO.HMGCLDS 08:19
PROVIDERS: PCP Internal Medicine; Visit Provider Internal Medicine
DX: E78.5 Hyperlipidemia, unspecified (principal); Z95.2 Presence of prosthetic heart valve
CPT/HCPCS: 36415; 80061; 80076; 83540

== ENCOUNTER 2023-10-15 09:56 | Outpatient (REF) | payer OTHER, SELFPAY ==
--- NOTE | ~2023-10-15 | XR_ITS ---
EXAMINATION: XR LEFT SHOULDER XR CERVICAL SPINE CLINICAL INFORMATION: Cervical radiculopathy, pain in left shoulder. COMPARISON: None available. TECHNIQUE: 4 views of the left shoulder. 5 views of the cervical spine. FINDINGS: LEFT SHOULDER: Median sternotomy wires partially imaged. Advanced degenerative changes in the partially imaged upper thoracic spine with partially imaged prosthetic heart valve. Mild degenerative changes in the acromioclavicular joint with joint space narrowing and hypertrophic change. Degenerative changes with hypertrophic change along the glenoid. Small scattered cystic lucencies in the superolateral aspect of the humeral head and scapula. No abnormal soft tissue calcifications appreciated adjacent to the humeral head. CERVICAL SPINE: Median sternotomy wires and clips at the thoracic inlet. Irregular soft tissue calcifications lateral to the upper cervical spine on the right. Straightening of the normal cervical lordosis. Multilevel cervical spondylosis with hypertrophic change and moderate loss of disc space height at C4-C5. There appears to be fusion of C3-C4. C7 vertebral body and C6-C7 disc space are obscured by overlying soft tissues. Multilevel bilateral facet hypertrophy with neuroforaminal encroachment most notable at C4-C5. XR/XR cervical spine min 6V IMPRESSION: 1. Degenerative changes in the right shoulder. 2. Small scattered cystic lucencies in the humeral head and scapula. Correlation with clinical exam recommended. 3. Multilevel cervical spondylosis. MRI should be considered for further evaluation if there is concern for fracture or other underlying pathology.
--- NOTE | ~2023-10-15 | XR_ITS ---
EXAMINATION: XR LEFT SHOULDER XR CERVICAL SPINE CLINICAL INFORMATION: Cervical radiculopathy, pain in left shoulder. COMPARISON: None available. TECHNIQUE: 4 views of the left shoulder. 5 views of the cervical spine. FINDINGS: LEFT SHOULDER: Median sternotomy wires partially imaged. Advanced degenerative changes in the partially imaged upper thoracic spine with partially imaged prosthetic heart valve. Mild degenerative changes in the acromioclavicular joint with joint space narrowing and hypertrophic change. Degenerative changes with hypertrophic change along the glenoid. Small scattered cystic lucencies in the superolateral aspect of the humeral head and scapula. No abnormal soft tissue calcifications appreciated adjacent to the humeral head. CERVICAL SPINE: Median sternotomy wires and clips at the thoracic inlet. Irregular soft tissue calcifications lateral to the upper cervical spine on the right. Straightening of the normal cervical lordosis. Multilevel cervical spondylosis with hypertrophic change and moderate loss of disc space height at C4-C5. There appears to be fusion of C3-C4. C7 vertebral body and C6-C7 disc space are obscured by overlying soft tissues. Multilevel bilateral facet hypertrophy with neuroforaminal encroachment most notable at C4-C5. XR/XR shoulder LT min 2V IMPRESSION: 1. Degenerative changes in the right shoulder. 2. Small scattered cystic lucencies in the humeral head and scapula. Correlation with clinical exam recommended. 3. Multilevel cervical spondylosis. MRI should be considered for further evaluation if there is concern for fracture or other underlying pathology.
== END 2023-10-15 09:57 | disposition home or self-care (01) ==
LOC: HO.HMGCX 09:56
PROVIDERS: PCP Internal Medicine; Visit Provider Physical Medicine & Rehabilitation
DX: M54.12 Radiculopathy, cervical region (principal); M25.512 Pain in left shoulder
CPT/HCPCS: 72052; 73030

== ENCOUNTER 2023-12-20 15:11 | Outpatient (AMB) | payer OTHER, SELFPAY ==
[2023-12-20 15:24] VITALS: BP 130/80; PULSE 61; BMI 34.1
--- NOTE | 2023-12-20 15:24 | MHC.OFFVIS ---
Intake Vital Signs 12/20/23 15:24 Height 5 ft 11 in Weight 244 lb 11.41 oz BMI 34.1 BP 130/80 Blood Pressure Location Lt brachial Position Sitting Pulse 61 Intake Visit Reasons: 6 month follow up Intake Note: 6 month follow-up with ekg c/o weakness and fatigue (still having nerve issues post valve surgery) Last Chalker Required: No Allergies Penicillins Allergy (Intermediate, Verified 07/07/22 13:24) RASH Medication List - Last Reconciled 12/20/23 by Eric Gaytan MD aspirin (Ecotrin Low Strength) 81 mg PO DAILY atorvastatin 40 mg PO DAILY ibuprofen 800 mg PO TID lisinopril-hydrochlorothiazide 10-12.5 mg 1 tab PO DAILY metoprolol tartrate 25 mg PO BID HPI HPI Comments History of Present Illness Details Fredy comes for follow-up after surgical aortic valve replacement. He did not require concomitant coronary artery bypass grafting. However he is unhappy as he says since his surgery had bilateral arm numbness which is not persistent his left arm with difficulty in moving his arm over the shoulder. He also has occasional fluttering in his chest. He says symptoms of fatigue have not improved. His recent echocardiogram shows normally function bioprosthetic aortic valve with normal LV systolic function mildly dilated ascending aorta at 4.3 cm. He denies any exertional chest pain. Denies any heart failure symptoms. Takes all his medications. [facility] Medical History (Updated 12/21/23 @ 13:17 by Eric Gaytan MD) Aortic stenosis Peyronie's disease Sleep apnea Pancreatitis Hyperlipidemia HTN (hypertension) Surgical History Aortic valve replaced H/O colonoscopy S/P cardiac catheterization Hx laparoscopic cholecystectomy Family History Father No problems noted. Mother AML (acute myeloblastic leukemia) Brother CAD (coronary artery disease) Social History Alcohol intake: never Patient Tobacco Use Status: Former Tobacco user Review of Systems Const Denies chills, Denies fatigue, Denies fever(s), Denies frequent falls, Denies weakness, Denies weight gain and Denies weight loss ENT Denies dizziness Card Denies chest pain, Denies leg edema, Denies lightheadedness, Denies palpitations, Denies dyspnea, Denies dyspnea on exertion, Denies orthopnea and Denies other (loss of consciousness) Resp Denies cough, Denies dyspnea and Denies dyspnea on exertion GI Denies hematochezia and Denies change in stool character Musc Denies abnormal gait, Denies muscle weakness, Denies numbness, Denies radiating pain into limb and Denies tingling Neuro Denies abnormal gait, Denies dizziness, Denies frequent falls, Denies numbness, Denies tingling and Denies weakness Endo Denies fatigue and Denies palpitations Physical Exam Vital Signs: Last Vital Signs Pulse 61 12/20/23 15:24 BP 130/80 12/20/23 15:24 BMI result Body Mass Index 34.1 Const General: cooperative, healthy appearing, comfortable and no acute distress Orientation/consciousness: patient oriented x3 Neck Neck: Yes normal visual inspection and Yes no JVD Chest Chest palpation & inspection: other (Well-healed sternotomy site) Resp Effort & Inspection: normal respiratory effort Auscultation: clear to auscultation bilaterally, no crackles, no rales, no rhonchi and no wheezes Cardio Jugular venous distension: no JVD Palpation: normal PMI Rate: regular rate Rhythm: regular rhythm Heart sounds: S1 normal heart sound present, S2 normal heart sound present, no gallops, no murmurs and no rubs Peripheral pulses: Peripheral pulses 2+ throughout Neuro General: patient oriented x3 Extrem General: Yes normal to inspection and No no pedal edema Psych Appearance: grossly normal Mental Status: mental status grossly normal Speech and movement: Normal speech and movement present Office Procedures EKG Details: EKG shows normal sinus rhythm with occasional PVCs otherwise normal EKG 64391-[id number], Complete Assessment & Plan Assessment & Plan (1) Aortic valve replaced: Comment: 25 mm Inspiris valve Code(s): Z95.2 - Presence of prosthetic heart valve Plan: Patient status post bioprosthetic aortic valve replacement working well. Consider phase 2 cardiac rehabilitation. Continue low-dose aspirin therapy for life. Continue risk factor modification with aggressive lipid modification as well as blood pressure control. Blood pressure is currently well optimized. SBE prophylaxis as per ACC/aha guidelines. (2) CAD (coronary artery disease): Code(s): I25.10 - Atherosclerotic heart disease of [place] coronary artery without angina pectoris Plan: CAD nonobstructive by cardiac catheterization. Continue aggressive risk factor modification. Low-dose aspirin therapy and high-intensity statin therapy. Target goal LDL less than 70 mg/dL. Blood pressure is currently well optimized, continue current therapy. (3) Thoracic aortic aneurysm: Code(s): I71.20 - Thoracic aortic aneurysm, without rupture, unspecified Plan: Thoracic aortic aneurysm which is mild. No interventions required. Continue aggressive blood pressure control which is well optimized. Avoid sudden strenuous isometric exercise. Continue aggressive vascular risk factor modifications above. (4) Arm numbness: Code(s): R20.0 - Anesthesia of skin Plan: Persistent left arm numbness which is most likely related to cervical radiculopathy from most likely cervical spine manipulation during open-heart surgery. Consider referral to spine Center. Will follow up in the clinic in 1 year's time, sooner p.r.n.. Thank you for allowing me to partake in his care Orders: Orders CA echo transthoracic complete 50 Weeks I71.20 - Thoracic aortic aneurysm, without rupture, unspecified Coding Level of Care Code Est Pt Level 4 (35545) Diagnoses Aortic valve replaced Z95.2 CAD (coronary artery disease) I25.10 Thoracic aortic aneurysm I71.20 Arm numbness R20.0 CPT Codes EKG - CPT: 90013-[id number], Complete ([id number])
== END 2023-12-20 15:52 | disposition home or self-care (01) ==
PROVIDERS: PCP Internal Medicine; Visit Provider Internal Medicine Cardiovascular Disease
DX: Z95.2 Presence of prosthetic heart valve (principal); I25.10 Atherosclerotic heart disease of native coronary artery without angina pectoris; I71.20 Thoracic aortic aneurysm, without rupture, unspecified; R20.0 Anesthesia of skin
CPT/HCPCS: 93010; 99214

== ENCOUNTER → 2023-12-20 15:11 | Outpatient (BNVA) | payer OTHER, SELFPAY | PROVIDERS: PCP Internal Medicine; Visit Provider Internal Medicine Cardiovascular Disease | DX: I25.10 Atherosclerotic heart disease of native coronary artery without angina pectoris (principal); I71.20 Thoracic aortic aneurysm, without rupture, unspecified; R20.0 Anesthesia of skin; Z95.2 Presence of prosthetic heart valve; Z79.82 Long term (current) use of aspirin; Z79.899 Other long term (current) drug therapy | CPT/HCPCS: 93005 ==

== ENCOUNTER 2023-12-30 14:09 | Outpatient (AMB) | payer OTHER, SELFPAY ==
--- NOTE | 2023-12-30 15:17 | MHC.OFFVIS ---
Intake Intake Visit Reasons: radiculopathy Allergies Penicillins Allergy (Intermediate, Verified 07/07/22 13:24) [facility] Medical History (Updated 12/30/23 @ 15:18 by CR Kaminski) Aortic stenosis Peyronie's disease Sleep apnea Pancreatitis Hyperlipidemia HTN (hypertension) Surgical History Aortic valve replaced H/O colonoscopy S/P cardiac catheterization Hx laparoscopic cholecystectomy Family History Father No problems noted. Mother AML (acute myeloblastic leukemia) Brother CAD (coronary artery disease) Social History Alcohol intake: never Patient Tobacco Use Status: Former Tobacco user Assessment & Plan Assessment & Plan (1) Cervical radiculopathy: Code(s): M54.12 - Radiculopathy, cervical region (2) Left shoulder pain: Code(s): M25.512 - Pain in left shoulder Plan Dear Dr Mcdermott, Thank you for referring Mr Peterson to our office today. He has a 63-year-old male who presents to the office today for evaluation of cervical radiculopathy and left shoulder pain. He relates some degree of neck discomfort in hand numbness going back to his aortic valve replacement in April of last year. He was recovering from that and went back to work in June. 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 It 1st radiate into his right trapezius and then it started radiating down into his left shoulder about mid biceps. He would get some fasciculations or twitching of his muscles. At times the pain would radiate down into his 4th and 5th digits on his left hand. Over time, and into the fall sometime around September the pain escalated significantly. He has a lot of difficulty at night, sleeping on the left side can be quite difficult. He does not report any specific loss of function of the arm with the exception of the position of deltoid flexion, he has a hard time holding his arm up. He comes in today with an MRI showing degenerative disc disease at multiple locations. He did start undergoing physical therapy for shoulder and for his neck but it just made things to uncomfortable. He discontinued that. He takes Motrin and Tylenol at night to help ease the pain but it does not really help all that much. PMH: He has a history of aortic valve replacement, but other than that he denies any significant medical problems. He is history of hypertension, high cholesterol. He takes a baby aspirin a day preventatively. He has no history of coagulopathies, kidney disorders, pulmonary problems, strokes. No previous neck surgeries. Social hx: He does not smoke, denies any use of drugs or alcohol. Medications: Metoprolol, lisinopril, atorvastatin, ibuprofen, baby aspirin Allergies: Penicillin Physical exam: He is awake alert oriented no acute distress, on motor examination there has a significant limitation of range of motion of his left shoulder. Just passive attempts to manipulate internal and external rotation will give him guarding and discomfort to where he wants me to end the examination. I was unable to put any significant downward pressure on his left shoulder because of pain. His motor examination distally to that is full strength. Reflexes are intact. No Steven sign. 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 The radiology report suggests there is also C5-6 foraminal stenosis but I do not think it is quite as bad as the report suggests. There is no foraminal stenosis further down. He has a shoulder x-ray that suggests that he has degenerative changes in that area as well. Impression: 63-year-old gentleman presents here for evaluation 4-5 months of chronic neck pain radiating down into his shoulder in his mid biceps with occasional tingling going into his 4th and 5th digits. The majority the discomfort is up around the shoulder area. He has a lot of difficulty sleeping at night. At times he will feel fasciculations in his arm. He has a tremendous amount of pain with movement of the left shoulder. I think he is dealing with a combination of issues including a cervical radiculopathy coming from the C4-5 region and some arthritis in the left shoulder. He is very reluctant to consider any kind of neck surgery would like to see if this can get better on its own. We discussed the option of a cortisone injection into his neck to help with some of the pain, but he has had them in his back and is not all that interested. I think at this point if it was going get better on its own, it likely would have started to get better already but in fact it only continues to get worse. Typically this is something Dr. Oliveira would offer anterior cervical diskectomy and fusion. I am also going to review his shoulder x-ray with to see if he thinks that there is anything in the x-ray that would warrant a referral to his office for consideration of a maybe shoulder arthroscopy as he does also have a tremendous amount of pain even with passive range of motion of the shoulder. Thank you for allowing us to care for your patient. The total time spent with this visit with this patient was 45 minutes reviewing history, physical exam, cervical MRI imaging review, and implementation of treatment plan or further diagnostic testing [place] Oliveira MD,PhD [facility] Coding Level of Care Code New Pt Level 4 (51988) Diagnoses Cervical radiculopathy M54.12 Left shoulder pain M25.512
== END 2023-12-30 15:51 | disposition home or self-care (01) ==
PROVIDERS: PCP Internal Medicine; Referring Provider Internal Medicine; Visit Provider Physician Assistant
DX: M54.12 Radiculopathy, cervical region (principal); M25.512 Pain in left shoulder
CPT/HCPCS: 99204

== ENCOUNTER → 2023-12-30 14:09 | Outpatient (BNVA) | payer OTHER, SELFPAY | PROVIDERS: PCP Internal Medicine; Visit Provider Physician Assistant ==

== ENCOUNTER 2024-01-17 15:05 | Outpatient (AMB) | payer OTHER, SELFPAY ==
--- NOTE | 2024-01-17 15:13 | MHC.OFFVIS ---
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 Patient had an MRI of his cervical spine on 11/07/23.He states that his pain has been going on for many months. No hx of injury. Hx of PT with no relief. Pain is worse when raising his arm and his pain move down to his bicep. 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 Patient is currently being followed by Neuro Sp[facility] for cervical radiculopathy and left shoulder pain. Per provider?s note from 12/30/2023, ?he started to notice some neck pain. It 1st radiate into his right trapezius and then it started radiating down into his left shoulder about mid biceps. He would get some fasciculations or twitching of his muscles. At times the pain would radiate down into his 4th and 5th digits on his left hand.? The patient has a history of physical therapy for the left shoulder and neck, but reported it make things uncomfortable, therefore he discontinued attending. After an MRI was reviewed [place] [facility] stated the suggestion would be C4-5 anterior cervical diskectomy and fusion. The patient was referred to orthopedics after the case was discussed with Dr. Cruz about possible consideration of a left shoulder arthroscopy. 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 His job requires him to do a lot of lifting and manipulation with his arms, per [facility] note. While in the office today the patient reports his pain has been present for many months. He states his pain increases when raising his arm, this caused the pain to radiate to his bicep. He denies any known injury. He confirms participating in physical therapy with no relief. He reports numbness and tingling down to fingers. Pain radiates from the left side of the neck down the shoulder to the bicep into the hand. [facility] Medical History (Updated 12/30/23 @ 15:18 by CR Kaminski) Aortic stenosis Peyronie's disease Sleep apnea Pancreatitis Hyperlipidemia HTN (hypertension) Surgical History Aortic valve replaced H/O colonoscopy S/P cardiac catheterization Hx laparoscopic cholecystectomy Family History Father No problems noted. 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 Abduction to 100 degrees with pain at the last 10 degrees of motions. Able to reach back pocket. Negative cross-body reach. 4/5 strength with empty can. Symptoms are not reproduceable with active ROM of the C-spine. Assessment & Plan Assessment & Plan (1) Cervical radiculopathy: Code(s): M54.12 - Radiculopathy, cervical region Plan Mr. Peterson is a 63-year-old male who presents in the office today, as a new patient, for an evaluation of left shoulder pain. Patient is currently being followed by [facility] for cervical radiculopathy and left shoulder pain. Per provider?s note from 12/30/2023, ?he started to notice some neck pain. It 1st radiate into his right trapezius and then it started radiating down into his left shoulder about mid biceps. He would get some fasciculations or twitching of his muscles. At times the pain would radiate down into his 4th and 5th digits on his left hand.? The patient has a history of physical therapy for the left shoulder and neck, but reported it make things uncomfortable, therefore he discontinued attending. After an MRI was reviewed [place] [facility] stated the suggestion would be C4-5 anterior cervical diskectomy and fusion. The patient was referred to orthopedics after the case was discussed with Dr. Ruark about possible consideration of a left shoulder arthroscopy. 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 His job requires him to do a lot of lifting and manipulation with his arms, per Neuro Spine note. WWhile in the office today the patient reports his pain has been present for many months. He states his pain increases when raising his arm, this caused the pain to radiate to his bicep. He denies any known injury. He confirms participating in physical therapy with no relief. He reports numbness and tingling down to fingers. Pain radiates from the left side of the neck down the shoulder to the bicep into the hand. I offered the patient physical therapy in regards to shoulder ROM. However, the patient elected to hold off at this time. I do believe he has good strength with ROM with rotator cuff testing. I feel his symptoms originate at his C-spine. Patient is hesitant to move forward with any surgical intervention in regards to his C-spine. Therefore, a referral to Physiatry has been place for additional treatment options that they might recommend that are not surgical. Follow up with orthopedics will be PRN, or sooner if needed. X-rays of the left shoulder, obtained on 10/15/2023, revealed: 1. Degenerative changes in the right shoulder. 2. Small scattered cystic lucencies in the humeral head and scapula. Correlation with clinical exam recommended. 3. Multilevel cervical spondylosis. 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 Patient Instructions: Scribed by Patricia [facility] medical collections, for Hanna Mary PA-C on 01/17/2024 at 3:07 pm, EST. Coding Level of Care Code New Pt Level 4 (29496) Diagnoses Cervical radiculopathy M54.12
== END 2024-01-17 15:41 | disposition home or self-care (01) ==
PROVIDERS: PCP Internal Medicine; Visit Provider Physician Assistant
DX: M54.12 Radiculopathy, cervical region (principal)
CPT/HCPCS: 99203

== ENCOUNTER → 2024-01-17 15:05 | Outpatient (BNVA) | payer OTHER, SELFPAY | PROVIDERS: PCP Internal Medicine; Visit Provider Physician Assistant ==

== ENCOUNTER 2024-02-18 08:38 | Outpatient (REF) | payer OTHER, SELFPAY ==
[2024-02-18 11:12] LABS: MANUAL DIFF FLAG NO
[2024-02-18 11:25] LABS: Basophils Absolute Auto 0.1 X10*3/uL (0.0-0.2); Basophils Percent Auto 1.1 % (0-2); Eosinophils Absolute Auto 0.3 X10*3/uL (0.0-0.4); Eosinophils Percent Auto 5.3 % (0-4); Hematocrit 39.7 % (42.0-52.0); Hemoglobin 13.8 g/dl (14.0-18.0); Imm Gran Abs Auto 0.01 X10*3/uL (0.00-0.03); Imm Gran Pct Auto 0.2 % (0.0-0.4); Lymphocytes Absolute Auto 1.1 X10*3/uL (1.2-4.9); Lymphocytes Percent Auto 19.2 % (20-40); Mean Corpuscular HGB Conc 34.8 g/dl (31.0-36.0); Mean Corpuscular Hemoglobin 31.4 pg (27.0-33.0); Mean Corpuscular Volume 90.2 fL (80.0-98.0); Mean Platelet Volume 11.2 fL (9.4-12.4); Monocytes Absolute Auto 0.5 X10*3/uL (0.1-1.2); Monocytes Percent Auto 9.7 % (2-11); Neutrophils Absolute Auto 3.5 x10*3/uL (2.0-8.3); Neutrophils Percent Auto 64.5 % (45-73); Platelet Count 169 X10*3/uL (160-400); Red Cell Distribution Width 13.3 % (11.0-16.0); White Blood Count 5.5 X10*3/uL (4.8-10.8)
[2024-02-18 11:30] LABS: Appearance Urine Clear; Color Urine Yellow; Glucose Urine UA Negative (Negative); Leukocyte Esterase Urine Negative (Negative); Nitrite Urine Negative (Negative); UMIC TRIGGER UACC YES; Urine Blood Negative (Negative); Urine Ketones Negative (Negative); Urine Protein 30 (1+) mg/dL (Neg-Trace)
[2024-02-18 11:32] LABS: Estimated Average Glucose 108 mg/dL; Hemoglobin A1c % 5.4 % (<6.0)
[2024-02-18 11:37] LABS: Bacteria Urine None Seen (None Seen); Hyaline Casts Urine 0-2 /LPF (0-2); RBC Urine 0-2 /HPF (0-2); Squamous Epithelial Cell Urine 0-2 /HPF (0-2); WBC Urine 0-5 /HPF (0-5)
[2024-02-18 11:45] LABS: Alanine Aminotransferase 25 U/L (0-40); Albumin Level 4.1 g/dL (3.5-5.0); Alkaline Phosphatase 97 U/L (39-117); Anion Gap 11 (12-20); Aspartate Amino Transferase 29 U/L (5-37); Bilirubin Total 0.7 mg/dL (0.0-1.0); Blood Urea Nitrogen 17 mg/dL (9-16); Calcium 9.4 mg/dL (8.4-10.2); Carbon Dioxide 27 mmol/L (22-29); Chloride 104 mmol/L (96-108); Cholesterol 136 mg/dL (<200); Estimated Glomerular Filt Rate > 60; Glucose Fasting 118 mg/dL (60-99); HDL Cholesterol 59 mg/dL (>40); LDL Cholesterol Calculated 71 mg/dL (<100); Potassium 4.2 mmol/L (3.3-5.1); Sodium 138 mmol/L (135-145); Total Protein 6.8 g/dL (6.5-8.0); Triglycerides 34 mg/dL (<150)
[2024-02-18 11:52] LABS: PSA,Total (Free>4and<10) 0.55 ng/mL (0.00-4.00)
[2024-02-18 11:57] LABS: Creatinine Urine 102.47 mg/dL; Microalbum/Creatinine Ratio Ur 309.3 ug/mg cr (<30)
== END 2024-02-18 08:39 | disposition home or self-care (01) ==
LOC: HO.HMGCLDS 08:38
PROVIDERS: PCP Internal Medicine; Visit Provider Internal Medicine
DX: Z00.00 Encounter for general adult medical examination without abnormal findings (principal); Z12.5 Encounter for screening for malignant neoplasm of prostate; E78.5 Hyperlipidemia, unspecified; R73.03 Prediabetes; I10 Essential (primary) hypertension; N40.0 Benign prostatic hyperplasia without lower urinary tract symptoms; E83.52 Hypercalcemia
CPT/HCPCS: 36415; 80053; 80061; 81001; 82043; 82570; 83036; 84153; 85025

== ENCOUNTER 2024-02-29 07:27 | Outpatient (REF) | payer OTHER, SELFPAY ==
[2024-02-29 10:33] LABS: Hematocrit 40.9 % (42.0-52.0); Mean Corpuscular HGB Conc 34.2 g/dl (31.0-36.0); Mean Corpuscular Hemoglobin 30.8 pg (27.0-33.0); Mean Corpuscular Volume 90.1 fL (80.0-98.0); Mean Platelet Volume 11.1 fL (9.4-12.4); Platelet Count 164 X10*3/uL (160-400); Red Blood Count 4.54 X10*6/uL (4.60-5.80); Red Cell Distribution Width 13.2 % (11.0-16.0); White Blood Count 5.6 X10*3/uL (4.8-10.8)
[2024-02-29 10:40] LABS: INTERNATIONAL NORM RATIO 0.9 (0.9-1.1); Prothrombin Time 11.4 SEC (11.1-13.3)
[2024-02-29 11:16] LABS: Anion Gap 11 (12-20); Blood Urea Nitrogen 19 mg/dL (9-16); Calcium 9.4 mg/dL (8.4-10.2); Carbon Dioxide 27 mmol/L (22-29); Chloride 106 mmol/L (96-108); Estimated Glomerular Filt Rate > 60; Glucose Random 124 mg/dL (60-115); Potassium 3.9 mmol/L (3.3-5.1); Sodium 140 mmol/L (135-145)
== END 2024-02-29 07:28 | disposition home or self-care (01) ==
LOC: HO.HMGCLDS 07:27
PROVIDERS: Internal Medicine Cardiovascular Disease; PCP Internal Medicine; Visit Provider Internal Medicine
DX: D64.9 Anemia, unspecified (principal); I25.10 Atherosclerotic heart disease of native coronary artery without angina pectoris; I35.0 Nonrheumatic aortic (valve) stenosis
CPT/HCPCS: 36415; 80048; 85027; 85610

== ENCOUNTER 2024-02-29 08:37 | Outpatient (AMB) | payer OTHER, SELFPAY ==
--- NOTE | 2024-02-29 08:39 | A.OFFVIS_ITS ---
Intake Vital Signs 02/29/24 08:44 Height 5 ft 11 in Weight 244 lb BMI 34.0 Handedness Right Intake Visit Reasons: OV - Left left cervical radiculopathy Intake Note: Fredy is a 63 year old right hand dominant male who presents today for a follow up of his left cervical radiculopathy. Patient had an MRI of his cervical spine on 11/07/23. He states still having a lot of pain and notices that it is getting worse. Patient has tried and failed the use of a heating bad which is not giving him relief. Allergies Penicillins Allergy (Intermediate, Verified 02/29/24 08:43) RASH Medication List - Last Reconciled 02/29/24 by Lorelei Rosales MD aspirin (Ecotrin Low Strength) 81 mg PO DAILY atorvastatin 40 mg PO DAILY ibuprofen 800 mg PO TID lisinopril-hydrochlorothiazide 10-12.5 mg 1 tab PO DAILY metoprolol tartrate 25 mg PO BID HPI HPI Comments History of Present Illness Details Left upper neck down to fingers, wraps around biceps, seen left twitching on biceps, lips/tongue numb. Left 4th and 5th digits feel numb (which he says started after AVR surgery). Can be severe pain especially with sleep, difficulty/weakness on left arm even with driving, can come/go but can be severe. Does not know specifically what could make it worse. Independently reviewed MRI. Degenerative disc changes seen. Left sided disc herniation closer to cord C4-5. Reviewed notes by Neurosurgery 12/2023. They did recommend C4-5 ACDF. [facility] Medical History (Updated 02/29/24 @ 09:26 by Lorelei Rosales MD) Cervical spinal stenosis Aortic stenosis Peyronie's disease Sleep apnea Pancreatitis Hyperlipidemia HTN (hypertension) Surgical History Aortic valve replaced H/O colonoscopy S/P cardiac catheterization Hx laparoscopic cholecystectomy Family History Father No problems noted. 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 Patient was appropriately conversant and oriented. Good historian. MSK: Inspection reveals appropriate head and neck positioning. No pain with palpation over the neck musculature. Cervical ROM was full. Spurling's sign negative. Bilateral shoulder, elbow and wrist ROM WNL. No ligamentous laxity or crepitance. No increased effusion. Negative Monroy sign. Negative empty can sign. Negative speed's test. Positive carpal compression, left worse than right. Negative Tinel's sign. No specific abnormalities or instability found on inspection and palpation of the spine and extremities. Lumbar ROM was full. Neurological: There is slight weakness on left shoulder abduction 4+/5. Rest of MMT 5/5. Reflexes are symmetric and normal upper and lower. Steven?s negative bilaterally. Babinski was down going bilaterally. Clonus was negative. Gait is non-antalgic without loss of balance. Patient was able to perform heel walk and toe walk. Results Reviewed Results Reviewed: As above Assessment & Plan Assessment & Plan (1) Cervical spinal stenosis: Code(s): M48.02 - Spinal stenosis, cervical region (2) Numbness of left hand: Code(s): R20.0 - Anesthesia of skin Plan I agree and support neurosurgery's recommendation for ACDF. His symptoms and MRI are consistent with left C4-5 radiculopathy. He has tried conservative management including PT and traction. We talked about how surgery could be preventive for future bad outcomes. Discussed fall prevention. While he is deciding on this, we would do an EMG to rule out concomitant CTS causing bilateral hand numbness. He will call Dr. Oliveira' office so he can be seen by them after EMG. Assessment and plan discussed with patient, and patient was agreeable. All questions were answered thoroughly. Lorelei Rosales MD, JENNY Board Certified, [place] [employer] and Rehabilitation (ABPMR) Board Certified, [place] [employer] Electrodiagnostic Medicine (ABEM) Orders: Orders NE electromyogram (EMG) Today M48.02 - Spinal stenosis, cervical region, R20.0 - Anesthesia of skin NE nerve conduction velocity Today M48.02 - Spinal stenosis, cervical region, R20.0 - Anesthesia of skin Coding Level of Care Code New Pt Level 4 (69343) Diagnoses Cervical spinal stenosis M48.02 Numbness of left hand R20.0
[2024-02-29 08:44] VITALS: BMI 34.0
== END 2024-02-29 09:30 | disposition home or self-care (01) ==
PROVIDERS: PCP Internal Medicine; Visit Provider Physical Medicine & Rehabilitation
DX: M48.02 Spinal stenosis, cervical region (principal); R20.0 Anesthesia of skin
CPT/HCPCS: 99204

== ENCOUNTER 2024-03-07 15:11 | Outpatient (REF) | payer OTHER, SELFPAY ==
--- NOTE | 2024-03-07 15:55 | EMG_ITS ---
Chief complaint: Neck pain, bilateral hand numbness Reason for referral: Evaluate for cervical radiculopathy versus Carpal Tunnel Syndrome Procedure done: Bilateral upper extremities NCS/EMG Precautions and/or limitations: None The limb temperature was monitored continuously and remained between 32-36 degrees C during the performance of the NCS. Nerve Conduction Studies Anti Sensory Summary Table ?Stim Site NR Onset (ms) Norm Onset (ms) Peak (ms) Norm Peak (ms) O-P Amp (?V) Norm O-P Amp Site1 Site2 Delta-0 (ms) Dist (cm) Hua (m/s) Norm Hua (m/s) Left Median Anti Sensory (2nd Digit) Wrist ? 2.9 4.0 <3.6 14.2 >10 Wrist 2nd Digit 2.9 14.0 48 Right Median Anti Sensory (2nd Digit) Wrist ? 3.3 4.1 <3.6 8.9 >10 Wrist 2nd Digit 3.3 14.0 42 Right Radial Anti Sensory (Thumb) Forearm ? 1.7 2.2 <3.1 12.2 Forearm Thumb 1.7 0.0 Left Ulnar Anti Sensory (5th Digit) Wrist ? 1.8 3.2 <3.7 19.9 >15.0 Wrist 5th Digit 1.8 14.0 78 Right Ulnar Anti Sensory (5th Digit) Wrist ? 2.3 2.8 <3.7 13.8 >15.0 Wrist 5th Digit 2.3 14.0 61 Motor Summary Table ?Stim Site NR Onset (ms) Norm Onset (ms) O-P Amp (mV) Norm O-P Amp iAmp (mV) Amp (1st) (%) Site1 Site2 Delta-0 (ms) Dist (cm) Hua (m/s) Norm Hua (m/s) Left Median Motor (Abd Poll Brev) Wrist ? 4.8 <3.9 4.4 >4.5 5.1 100.0 Elbow Wrist 4.0 22.0 55 >45 Elbow ? 8.8 1.4 1.6 31.8 Right Median Motor (Abd Poll Brev) Wrist ? 4.5 <3.9 8.0 >4.5 9.2 100.0 Elbow Wrist 4.5 22.5 50 >45 Elbow ? 9.0 6.7 7.8 83.8 Left Ulnar Motor (Abd Dig Minimi) Wrist ? 2.8 <3.0 8.6 >5 9.3 100.0 B Elbow Wrist 3.4 19.0 56 >45 B Elbow ? 6.2 7.8 8.7 90.7 A Elbow B Elbow 1.4 10.0 71 >45 A Elbow ? 7.6 7.1 8.0 82.6 Right Ulnar Motor (Abd Dig Minimi) Wrist ? 2.7 <3.0 9.4 >5 11.2 100.0 B Elbow Wrist 3.6 21.5 60 >45 B Elbow ? 6.3 9.2 11.4 97.9 A Elbow B Elbow 1.4 10.0 71 >45 A Elbow ? 7.7 9.1 11.3 96.8 EMG ?Side Muscle Nerve Root Ins Act Fibs Psw Amp Dur Poly Recrt Int Pat Comment Right 1stDorInt Ulnar C8-T1 Nml Nml Nml Nml Nml 0 Nml Complete Right FlexCarRad Median C6-7 Nml Nml Nml Nml Nml 0 Nml Complete Right Biceps Musculocut C5-6 Nml Nml Nml Nml Nml 0 Nml Complete Right Triceps Radial C6-7-8 Nml Nml Nml Nml Nml 0 Nml Complete Right Deltoid Axillary C5-6 Nml Nml Nml Nml Nml 0 Nml Complete Left 1stDorInt Ulnar C8-T1 Nml Nml Nml Nml Nml 0 Nml Complete Left FlexCarRad Median C6-7 Nml Nml Nml Nml Nml 0 Nml Complete Left Biceps Musculocut C5-6 Nml Nml Nml Nml Nml 0 Nml Complete Left Triceps Radial C6-7-8 Nml Nml Nml Nml Nml 0 Nml Complete Left Deltoid Axillary C5-6 Nml Nml Nml Incr Incr 0 Nml Complete Paraspinal EMG ?Side Muscle Nerve Root Ins Act Fibs Psw Comment Right Cervical Upper Rami Nml Nml Nml Right Cervical Mid Rami Nml Nml Nml Right Cervical Lower Rami Nml Nml Nml Left Cervical Upper Rami Nml Nml Nml Left Cervical Mid Rami Nml Nml Nml Left Cervical Lower Rami Nml Nml Nml FINDINGS: Left median motor nerve showed prolonged distal latency, small amplitude and normal conduction velocity. Right median motor nerve showed prolonged distal latency, normal amplitude and normal conduction velocity. Left median sensory nerve median sensory nerve showed prolonged peak latency. Right median sensory nerve showed prolonged peak latency and small amplitude. All other nerves tested were within normal. Concentric needle EMG was performed in selected muscles of the bilateral upper extremities and cervical paraspinal. Study revealed Signs of electric abnormalities as shown in the table below. Left deltoid showed increased duration and amplitude. IMPRESSION: 1. This is an abnormal study. 2. There is electrodiagnostic evidence for bilateral moderate-severe median neuropathy at the wrist, consistent with Carpal Tunnel Syndrome. 3. There are electrodiagnostic findings suggestive of left C5 radiculopathy. 4. There is no electrodiagnostic evidence for ulnar neuropathy or brachial plexopathy. Thank you for your kind referral. Lorelei Rosales MD, JENNY Board Certified, [place] Board [employer] and Rehabilitation (ABPMR) Board Certified, [place] Board [employer] Electrodiagnostic [employer] (ABEM) CODIN 02121 x2 MTDD
== END 2024-03-07 15:12 | disposition home or self-care (01) ==
LOC: HO.NEURO 15:11
PROVIDERS: PCP Internal Medicine; Visit Provider Physical Medicine & Rehabilitation
DX: M48.02 Spinal stenosis, cervical region (principal); R20.0 Anesthesia of skin
CPT/HCPCS: 95886; 95911

== ENCOUNTER → 2024-03-07 15:55 | Outpatient (BNV) | payer OTHER, SELFPAY | PROVIDERS: PCP Internal Medicine; Visit Provider Physical Medicine & Rehabilitation | DX: G56.03 Carpal tunnel syndrome, bilateral upper limbs (principal); G56.13 Other lesions of median nerve, bilateral upper limbs; M50.122 Cervical disc disorder at C5-C6 level with radiculopathy | CPT/HCPCS: 95886; 95911 ==

== ENCOUNTER 2024-04-11 15:10 | Outpatient (AMB) | payer OTHER, SELFPAY ==
--- NOTE | 2024-04-11 15:57 | A.SPINEOV_ITS ---
Intake Visit Reasons: follow up/EMG 03/07 Intake Note: Mr. Peterson is here today to F/u on EMG done on 03/07/24 Financial Health Counselor Required: No Allergies Penicillins Allergy (Intermediate, Verified 04/11/24 15:58) RASH Assessment & Plan Assessment & Plan (1) Cervical spinal stenosis: Code(s): M48.02 - Spinal stenosis, cervical region Category: Medical (2) Cervical radiculopathy: Code(s): M54.12 - Radiculopathy, cervical region Category: Medical (3) Carpal tunnel syndrome of left wrist: Code(s): G56.02 - Carpal tunnel syndrome, left upper limb Category: Medical Plan Dear colleague, On 04/11/2024, I saw for a return visit Fredy Peterson for ongoing severe left upper arm pain into the biceps and numbness of his 3rd to 5th finger. The pain started after his open heart surgery from which he recovered well. The pain is not getting better despite conservative measurements such as [id number] medications and lifestyle modifications. He was previously seen by my PA [place] [facility] and the MRI was reviewed showing a severe left C5 foraminal stenosis. An EMG is positive for bilateral carpal tunnel syndrome and a left C5 radiculopathy. On exam, there is mild muscle wasting of the biceps on the left side. There is also grade 4-5 weakness of the biceps. I had an extensive discussion with the patient about treatment possibilities. I offered him an anterior diskectomy me and fusion C4-C5 and a carpal tunnel release on the left side. I described the procedure and possible complications and expected outcome. He is scheduled to undergo an echo of his heart mid May but he declines any cardiac symptoms at the moment. We decided to schedule him for June 28 so that we at least have the results of the echo. He needs to continue his aspirin 5 days prior to surgery. I spent 35 minutes in this consult to discuss the treatment plan and answering questions. Homero Oliveira MD, PhD Sp[facility] Fellowship Trained Neurosurgeon Director, [facility] Coding Level of Care Code Est Pt Level 4 (29398) Diagnoses Cervical spinal stenosis M48.02 Cervical radiculopathy M54.12 Carpal tunnel syndrome of left wrist G56.02
== END 2024-04-11 16:47 | disposition home or self-care (01) ==
PROVIDERS: PCP Internal Medicine; Visit Provider Neurological Surgery
DX: M48.02 Spinal stenosis, cervical region (principal); G56.02 Carpal tunnel syndrome, left upper limb
CPT/HCPCS: 99214

== ENCOUNTER → 2024-04-11 15:10 | Outpatient (BNVA) | payer OTHER, SELFPAY | PROVIDERS: PCP Internal Medicine; Visit Provider Neurological Surgery ==

== ENCOUNTER → 2024-06-08 14:43 | Outpatient (REF) | payer OTHER, SELFPAY ==
--- NOTE | 2024-06-08 14:45 | CA_ITS ---
Transthoracic Echocardiogram Patient (Last, First, Middle): Fredy Peterson W Gender: Male Date of : 1960 Age: 63 Procedure Date: 06/08/2024 Procedure Type: Transthoracic Echocardiogram Location: OP Height: 180.34 cm Weight: 108.86 kg BSA: 2.28 m2 Heart Rate: 57 bpm BP: 132 / 74 mmHg [employer]ker: EJ Referring MD: Eric Gaytan MD Symptoms: I71.20 - Thoracic aortic aneurysm, without rupture, unspecified Study Quality: Adequate ECG Rhythm: Bradycardia Conclusions: - Normal left ventricular size and systolic function. There is moderately increased left ventricular wall thickness. The visually estimated ejection fraction is between 65-70%. - Elevated filling pressures. - There is mild dilatation of the ascending aorta measuring 4.10 cm. Findings Left Ventricle Normal left ventricular size and systolic function. There is moderately increased left ventricular wall thickness. The visually estimated ejection fraction is between 65-70%. There is no evidence of regional wall motion abnormalities. Abnormal diastolic function is noted. Spectral Doppler is indicative of a pseudonormal filling pattern. Elevated filling pressures. Right Ventricle Normal right ventricular cavity size. There is mildly decreased right ventricular systolic function. Atria The left atrium is mildly dilated. Aortic Valve A bioprosthetic aortic valve is present. The prosthetic aortic valve appears to be functioning normally. The peak aortic velocity is 2.17 m/s. There is no aortic valve regurgitation. Mitral Valve There is mild mitral annular calcification. There is no mitral valve regurgitation. There is no mitral valve stenosis. Pulmonic Valve The pulmonic valve is normal. There is trace pulmonic valve regurgitation. Tricuspid Valve Normal tricuspid valve structure. There is trace tricuspid valve regurgitation. Normal right atrial pressure. There is no evidence of pulmonary hypertension. Great Vessels There is mild dilatation of the ascending aorta measuring 4.10 cm. The visualized portions of the pulmonary artery and branches are normal. Venous The inferior vena cava is normal in size. Pericardium/Pleural There is no evidence of pericardial effusion. Prior Study Comparison Changes noted compared to prior study dated: 06/21/2023. Mildly reduced RV function. Elevated LV pressure. Measurements 2D Linear Measurements IVSd: 1.41 0.6-0.9/0.6-1.0 cm LVIDd: 4.59 3.9-5.3/4.2-5.9 cm LVIDd Index: 2.01 2.4-3.2/2.2-3.1 cm/m2 LVIDs: 2.57 2.0-3.6 cm LVPWd: 1.20 0.7-1.1 cm LA Diam: 5.60 2.7-3.8/3.0-4.0 cm LAIDs Index: 2.46 1.5-2.3 cm/m2 LV Mass: 287.61 67-162/88-224 g LV Mass Index: 126.14 43-95/49-115 g/m2 LVOT Diam: 2.00 3.0+(-)1.3 cm 2D Systolic Function EF 4C: 72.00 >55% EF 2C: 62.90 >55% EF BiP: 68.00 >55% Mitral Valve MV Pk E: 1.22 MV PK A: 1.07 MV Decel Time: 273.00 E/A: 1.10 E'Lateral: 7.51 E'Medial: 5.66 E/E' Med: 21.60 E/E' Lat: 16.20 PHT: 80.00 MVA PHT: 2.75 Decel Ida: 4.47 Aortic Valve AoV Pk Hua: 2.17 AoV Mn Hua: 1.46 AoV VTI: 0.48 AoV Pk Grad: 19.00 Aov Mn Grad: 10.00 NAS Cont.VTI: 2.02 LVOT LVOT Pk Hua: 1.22 LVOT Mn Hua: 0.88 LVOT VTI: 0.31 LVOT Pk Grad: 6.00 LVOT Mn Grad: 4.00 LVOT Diam: 2.00 LVOT Area: 3.14 Diastolic Function MV Pk E: 1.22 MV Pk A: 1.07 E/A: 1.10 E'Medial: 5.66 E/E' Med: 21.60 E' Laterial: 7.51 E/E' Lat: 16.20 Right Ventricle TAPSE (mm): 16.50 TVS' Hua: 7.94 Tricuspid Valve TR Pk Hua: 2.45 TR Pk Grad: 24.00 RA Press: 3.00 RVSP: 27.00 Great Vessels Aorta Sinus of Valsalva: 3.30 2.0-3.5 cm Ao Asc: 4.10 2.1-3.4 cm Pulmonary Veins Pulm Vein S/D 1.00 Pulmonary Valve PV Pk Hua: 1.06 Peak PV Grad: 4.00 Updated in Other Vendor System with Status of Final Thien Upton MD electronically signed on 06/10/2024 12:11:54 AM with status of Final
== END ==
LOC: HO.CARD 14:43
PROVIDERS: PCP Internal Medicine; Visit Provider Internal Medicine Cardiovascular Disease
DX: I71.20 Thoracic aortic aneurysm, without rupture, unspecified (principal)
CPT/HCPCS: 93306

== ENCOUNTER → 2024-06-08 14:45 | Outpatient (BNV) | payer OTHER, SELFPAY | PROVIDERS: PCP Internal Medicine; Visit Provider Internal Medicine Cardiovascular Disease | DX: I71.21 Aneurysm of the ascending aorta, without rupture (principal); Z95.3 Presence of xenogenic heart valve; I34.81 Nonrheumatic mitral (valve) annulus calcification | CPT/HCPCS: 93306 ==

== ENCOUNTER 2024-08-16 06:34 | Day surgery (SDC) | payer OTHER, SELFPAY ==
[2024-06-14 11:14] VITALS: BMI 33.5
--- NOTE | 2024-06-27 08:34 | P.CONAN_ITS ---
Documented by User: Nakia Choudhary NP 07/10/24 13:10 HPI - Anesthesia Eval Consult details Narrative: 63yo M for C4-5 Ant Cerv Discectomy w/ fusion, Left Carpal Tunnel Release, 08/16/24 Follows [facility] cardiology for aortic stenosis s/p AVR 2022, TAA (4.1cm). Optimized per 05/2024 workload Last cardiac office visit 11/2023 [facility] Active Problems Active Problems: All Active Problems Carpal tunnel syndrome of left wrist (Acute) Numbness of left hand (Acute) Left shoulder pain (Acute) Cervical radiculopathy (Acute) Thoracic aortic aneurysm (Acute) CAD (coronary artery disease) (Acute) SOB (shortness of breath) on exertion (Acute) Cervical spinal stenosis (Acute) Aortic valve replaced (Acute ~04/2023) Hyperlipidemia (Acute) HTN (hypertension) (Acute) Past Medical History Medical History Numbness Thoracic aortic aneurysm (TAA) Sciatica Cervical spinal stenosis Peyronie's disease Sleep apnea Pancreatitis (~2003) Hyperlipidemia HTN (hypertension) Aortic stenosis Family History Family History Father No problems noted. Mother AML (acute myeloblastic leukemia) Brother CAD (coronary artery disease) Surgical History Surgical History History of cardiac cath (~03/2023) Aortic valve replaced (~04/2023) H/O colonoscopy (~10/2022) S/P cardiac catheterization Hx laparoscopic cholecystectomy Social History Social History Household Members: Spouse Housing: House Are you a primary reproductive healthcare assistant to a significant other at home: No Do you presently have visiting nurse or other home services: No Alcohol intake: never Patient Tobacco Use Status: Former Tobacco user Tobacco use type: Cigarette Smoked in Last 30 Days: No Use of substances other than those prescribed or required for medical reasons: No Have you been hit, kicked, punched, or otherwise hurt by someone within the past year? 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 Allergies Allergy/AdvReac Type Severity Reaction Status Date / Time Penicillins Allergy Intermediate RASH (in Verified 08/16/24 06:52 childhood) Home Medications ?Medication ?Instructions ?Recorded ?Confirmed ?Last Taken ?Type atorvastatin 40 mg tablet 40 mg PO DAILY 10/14/21 08/16/24 Unknown History lisinopril 10 1 tab PO DAILY 10/14/21 08/16/24 Unknown History mg-hydrochlorothiazide 12.5 mg tablet ibuprofen 800 mg tablet 800 mg PO TID 12/20/23 08/16/24 08/06/24 History Exam Height,Weight and Vital Signs: Height 5 ft 11 in Weight 108.862 kg Narrative Narrative: ECHO 05/2024 Conclusions: - Normal left ventricular size and systolic function. There is moderately increased left ventricular wall thickness. The visually estimated ejection fraction is between 65-70%. - Elevated filling pressures. - There is mild dilatation of the ascending aorta measuring 4.10 cm. Aortic Valve A bioprosthetic aortic valve is present. The prosthetic aortic valve appears to be functioning normally. The peak aortic velocity is 2.17 m/s. There is no aortic valve regurgitation. EKG 11/2023 normal sinus rhythm with occasional PVCs otherwise normal EKG US carotid duplex BI 2022 IMPRESSION: 1. RIGHT: Minimal, non-hemodynamically significant stenosis of the proximal right internal carotid artery corresponding to a 0-49% stenosis by velocity criteria. 2. LEFT: Minimal, non-hemodynamically significant stenosis of the proximal left internal carotid artery corresponding to a 0-49% stenosis by velocity criteria. 3. Incidental note made of an irregular cardiac rhythm. Assessment and Plan Assessment Anesthesia Assessment: Chart Reviewed Documented by User: Dai Najera MD 08/16/24 07:38 [facility] Past Medical History Medical History Numbness Thoracic aortic aneurysm (TAA) Sciatica Cervical spinal stenosis Peyronie's disease Sleep apnea Pancreatitis (~2003) Hyperlipidemia HTN (hypertension) Aortic stenosis Family History Family History Father No problems noted. Mother AML (acute myeloblastic leukemia) Brother CAD (coronary artery disease) Family history of problems with anesthesia: No Surgical History Surgical History History of cardiac cath (~03/2023) Aortic valve replaced (~04/2023) H/O colonoscopy (~10/2022) S/P cardiac catheterization Hx laparoscopic cholecystectomy History of Problems with Anesthesia: No Social History Social History Household Members: Spouse Housing: House Are you a primary reproductive healthcare assistant to a significant other at home: No Do you presently have visiting nurse or other home services: No Alcohol intake: never Patient Tobacco Use Status: Former Tobacco user Tobacco use type: Cigarette Smoked in Last 30 Days: No Use of substances other than those prescribed or required for medical reasons: No Have you been hit, kicked, punched, or otherwise hurt by someone within the past year? 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 Allergies Allergy/AdvReac Type Severity Reaction Status Date / Time Penicillins Allergy Intermediate RASH (in Verified 08/16/24 06:52 childhood) Home Medications ?Medication ?Instructions ?Recorded ?Confirmed ?Last Taken ?Type atorvastatin 40 mg tablet 40 mg PO DAILY 10/14/21 08/16/24 Unknown History lisinopril 10 1 tab PO DAILY 10/14/21 08/16/24 Unknown History mg-hydrochlorothiazide 12.5 mg tablet ibuprofen 800 mg tablet 800 mg PO TID 12/20/23 08/16/24 08/06/24 History Exam Airway Mallampati Class: II TM Dist: >3cm Neck ROM: Full Heart: rrr Lungs: cta Assessment and Plan Assessment Anesthesia Assessment: Anesthesia Plan Discussed Final Anesthetic Review Family History of Problems with Anesthesia: No History of Problems with Anesthesia: No NPO: Yes ASA Class: III Final Preanesthetic Review: No Changes in Pt Med Stat, Meds/Allgs Chart Reviewed, Consent Obtained/Reviewed and Anes Risks/Benef Reviewed Patient Risk: Intermediate Procedure Risk: Intermediate Anesthetic Plan Anesthetic Plan: GA Disposition: Standard PACU
[2024-08-16] VITALS (13 sets, daily range): BP systolic 155–176; BP diastolic 68–83; PULSE 52–58; RESP 14–20; TEMP 36.4–36.5; O2SAT 94–100; BMI 34.3
[2024-08-16] MEDS: Gabapentin 300 MG CAPSULE PO (07:11)
[2024-08-16] MEDS: methocarbamoL 750 MG TABLET PO (07:11)
--- NOTE | 2024-08-16 07:24 | P.DS_ITS ---
DS: Providers Provider Date of Service: 08/16/24 Date of discharge: 08/16/24 Primary care physician: Tonny Mcdermott MD Admitting clinician: Homero Oliveira DS: Diagnosis Discharge Diagnosis (1) Cervical radiculopathy: Status: Acute (2) Carpal tunnel syndrome of left wrist: Status: Acute DS: Summary Time Attestation Discharge Coordination Time (in mins): 5 Quality: Safe Use of Opioids Does Pt have an Active Cancer Diagnosis on the Problem List?: No Quality: Stroke Does the patient have a stroke diagnosis?: No Physical Exam Vital Signs: Vital Signs: BMI result Body Mass Index 34.3 Discharge Plan Discharge Patient Disposition: Home, Self-Care Referrals: Tonny Mcdermott MD [Primary Care Provider] - 1 Week Discharge Medications: New oxycodone 5 mg tablet 5 mg PO Q4H PRN (Reason: pain) Qty: 20 0RF Rx Instructions: Partial Fill upon patient request. docusate sodium [Colace] 100 mg capsule 100 mg PO BID Qty: 20 0RF Continued metoprolol tartrate 25 mg tablet 25 mg PO BID Qty: 180 3RF lisinopril-hydrochlorothiazide 10-12.5 mg tablet 1 tab PO DAILY atorvastatin 40 mg tablet 40 mg PO DAILY ibuprofen 800 mg tablet 800 mg PO TID Held aspirin [Ecotrin Low Strength] 81 mg tablet,delayed release (DR/EC) 81 mg PO DAILY Qty: 30 0RF Hold Instructions: Resume on 08/23/24. You may resume 7 days after surgery Discharge Orders: Discharge Order (Routine); Ordered 08/16/24 Ordered By: [place] Diet: Advance to usual diet Activity on Discharge: As tolerated Activity Restrictions/Additional Instructions: After your spinal surgery we ask you to observe the following restrictions/guidelines: Activity: It is normal to feel some discomfort as you increase your activity, but that will improve with time. We ask you avoid heavy lifting or acitivities that cause pain. As a general rule, 8lbs is a safe limit for lifting right after surgery. Walk as much as you feel comfortable but not to exhaustion. You will feel extra tired the first few days after surgery. Stay well hydrated. It is OK to walk up and down stairs You may return to driving when you are off narcotics (such as vicodin, oxycodone, dilaudid, etc), and you are back to normal functional capacity. If you have any concerns please check with office before driving. Return to work is specific to each patient and each surgery, so please speak with your doctor/PA at first follow up. Please bring paperwork such as FMLA at that time if you need it filled out. Medications: For optimum pain control, it is best to start with a combination of 500 mg of Tylenol every 4 hours with 600 mg of Motrin every 8 hours, and use narcotics as needed in between for breakthrough pain. We will give you a short supply of narcotics after surgery (usually one weeks worth). If you need more please call the office but do not use more than prescribed. You will need to give our office 48 hours notice if you need narcotics refilled and we do not fill narcotics on weekends or evenings. If you are on a narcotic, it is a good idea to take a stool softener such as colace or senna to avoid constipation If you take blood thinner such as aspirin, Plavix, Coumadin, Effient, Eliquis etc for conditions such as Afib, DVT, Pulmonary embolus, coronary disease, stents etc please speak with your surgeon about specific details as to when you can resume these medications. You can resume NSAIDs on post op day 1 (eg: Motrin, Naproxen, etc). Follow up: Please call the office, , after surgery to arrange a 3 week follow up for wound check. Wound Care: You may remove your dressing on the first day after surgery. ?You may ?leave open to air. Please do not remove the steri strips underneath. they will fall off on their own in one week. IT IS NORMAL FOR THE WOUND TO OOZE OR BE BLOODY FOR A FEW DAYS AFTER SURGERY. ?IF THIS HAPPENS JUST PLACE NEW DRESSING OVER IT TO AVOID STAINING CLOTHES. You may shower on post op day # 1 We ask that you do not let the water soak the wound. If it does get wet, just towel dry lightly. Please do not scrub your incision or place any type of chemical/ointment on the wound. No tub baths, pools or jacuzzis for one month. If you have any leaking or redness from your wound, or fevers, please call office After carpal tunnel release, we ask that you observe the following guidelines. You may remove your adam wrap on post op day 3, as well as the dressing underneath it There are sutures in your wound, and you will need these removed 10-14 days after surgery. Please call the office to arrange this visit, You can use your hand as much as you like, however, please avoid straining or heavy lifting It will help swelling in your hand to keep it elevated when you are not using it. You can shower on post op day 1, but please keep wound dry You can drive when you feel comfortable and are off narcotics If you experience any signs of infection such as fever, chills or redness/discharge from your wound,please call office right away Print Language: Brazilian
--- NOTE | 2024-08-16 07:24 | MHC.SHP ---
Pre-Procedural Eval Section A - 24 Hr Update-Section A only Date of Service: 08/16/24 The patient is an INPATIENT: No Changes since office visit: No Cold of Flu in the past 2 weeks, No New Medical Problems, No Changes in Medication and No Patient answered all questions The patient has been examined within 24 hours of the surgical procedure. The History & Physical has been completed within 30 days and I have reviewed it.: No Section B - Complete if H&P > 30 days Chief Complaint: spinal stenosis,radiculopathy,carpal tunnel Allergies: Allergies Allergy/AdvReac Type Severity Reaction Status Date / Time Penicillins Allergy Intermediate RASH (in Verified 08/16/24 06:52 childhood) Review of Systems Sugical H&P ROS: Negative: Constitution, Cardiovascular, Respiratory, Neurological, Psychiatric, Hem-Onc, Allergic/Immunologic, Gastrointestinal, Genitourinary, Musculoskeletal, Integumentary, Endocrine and Eyes/Ears/Nose/Throat Exam Surgical H&P Exam: Normal: HEENT, Normal: Heart, Normal: Lungs, Normal: Extremities, Normal: Abdomen, Normal: Skin and Normal: Neurological (Awake alert oriented x3) Plan Diagnosis/Plan: Unchanged Anterior cervical diskectomy and fusion C4-5, left carpal tunnel release Time Spent With Patient Time: Total time managing care of this patient today __6__ minutes.
[2024-08-16] MEDS: Lactated Ringers 1,000 ML 100 ML IVCONT (07:30)
[2024-08-16] MEDS: vancomycin/NS 2,000 MG/500 ML PLAST..BAG 250 MG IV (07:37)
--- NOTE | 2024-08-16 09:59 | P.OP_ITS ---
Operative Note Operative Note Date of Service: 08/16/24 Narrative: Preoperative Diagnosis: Cervical radiculopathy, left side Procedure: C4-C5 Anterior discectomy, arthrodesis and implantation cage ; C4-C5 anterior instrumentation ; local autograft; microscope Informed Consent was obtained for this operation. I have explained the nature, purpose and benefits of the operation. I have discussed the risks and benefit of the operation including possible complications or adverse events with patient/family. Alternative(s) were discussed with the patient with their relative benefits and risks as well as the consequences of not accepting the operation were included in obtaining consent. Surgeon: DOLORES CEDENO MD, PHD Procedure Assisted By: jason Peterson Description of Procedure: This patient is suffering from left arm pain due to severe left C5 foraminal stenosis. EMG is also positive for carpal tunnel syndrome and therefore we decided to address this as well today. The procedure complications were explained. The patient was consented. The patient was brought to the operating room and endotracheally intubated. The patient was put in supine position with slight extension of the neck. Prep and drape was done followed by timeout. A mid cervical incision was made followed by opening of the platysma. The prevertebral fascia was reached following the natural planes while the physician assistant store director provided manual retraction. The prevertebral fascia was opened to expose the disc space. A spinal needle was placed in the disk space to confirm the correct level with xray. The longus colli muscles were released bilaterally and a self retaining retractor was inserted. Two Stringer pins were placed in the C4-C5 vertebral bodies and distraction was give over the interspace. The discectomy was completed toward the posterior annulus of the disc. The microscope was brought in. The remainder of the discectomy was completed. The posterior ligament was opened and resected to expose the underlying dura. Osteophytes were resected from the body of C4-C5 and saved for autograft. Bilateral foraminotomies were done. Severe left C5 foraminal stenosis was present and relieved The endplates were prepared after which a 7 mm cage filled with autograft was inserted into the disc space. A separate attached plate was locked down with 2 x 14 mm screws as anterior instrumentation. Final x-rays in AP and lateral projection showed a satisfactory position of the implant. The physician assistant store director took over. The Stringer pin was removed. Hemostasis was done. He closed the incision in 2 layers with a 3-0 Vicryl. Steri-Strips used to approximate incision. An OpSite with Tegaderm was used to cover the incision. All sponge and needle counts were correct. Patient was extubated and transported in stable is to recovery room. Anesthesia: General Estimated Blood Loss (ml): 25 Duration of Surgery: 45 minutes Postoperative Plan: Discharge home Complications: None
--- NOTE | 2024-08-16 10:01 | W.PM.OPN ---
Operative Note Operative Note Date of Service: 08/16/24 Narrative: Diagnosis: Left carpal tunnel syndrome Procedure: Left median nerve release Surgeon: Homero Oliveira MD PhD Description procedure: This 64-year-old male Is suffering from a left carpal tunnel syndrome. The patient was offered a decompression of the median nerve. The procedure complications were explained. The patient was consented. He was brought to the operating room, where moderate sedation was applied. Prepping and draping was done followed by time-out. Marcaine was injected into the mid volar region. A midvolar incision was made. The ligamentum carpi transversum was opened sharply until the median nerve became visible. A Metzenbaum scissor was used to decompress the median nerve proximally and distally over its trajectory. Significant compression was present. Hemostasis was done. The incision was closed with 3 interrupted sutures. A compressive CAMILLE wrap was used for hemostasis. All sponge and needle counts were correct. Patient was transported to the recovery room. Anesthesia: Moderate sedation and local anesthetic Blood loss: Minimal Complications: None Disposition: Discharge home
[2024-08-16] MEDS: HYDROmorphone HCl 0.5 MG/0.5 ML SYRINGE 0.25 MG IVPUSH ×4 (10:20→11:00)
[2024-08-16] MEDS: Ondansetron ODT 4 MG TAB.RAPDIS TRANSLINGU (12:17)
--- NOTE | 2024-08-16 12:51 | PC.NURSE ---
PATIENT GIVEN ZOFRAN ODT PER ORDER PRIOR TO DC. PATIENT FELT NAUSEAOUS BUT FEELS BETTER NOW.
== END 2024-08-16 12:57 | disposition home or self-care (01) ==
PROVIDERS: PCP Internal Medicine; Visit Provider Neurological Surgery
PROC: (CPT 22551; principal; 2024-08-16 09:00)
PROC: (CPT 64721; 2024-08-16 09:00)
DX: M48.02 Spinal stenosis, cervical region (principal); M54.12 Radiculopathy, cervical region; G56.02 Carpal tunnel syndrome, left upper limb; M62.58 Muscle wasting and atrophy, not elsewhere classified, other site; R20.0 Anesthesia of skin; I25.10 Atherosclerotic heart disease of native coronary artery without angina pectoris; I10 Essential (primary) hypertension; G47.33 Obstructive sleep apnea (adult) (pediatric); Z79.1 Long term (current) use of non-steroidal anti-inflammatories (NSAID); Z79.899 Other long term (current) drug therapy; Z88.0 Allergy status to penicillin; Z98.890 Other specified postprocedural states; Z87.891 Personal history of nicotine dependence
CPT/HCPCS: 22551; 22853; 20936; 22845; 64721; C1713; C1889; J0131; J1100; J1170; J2405; J2704; J3010; J3370

== ENCOUNTER → 2024-08-16 06:34 | Outpatient (BNV) | payer OTHER, SELFPAY | PROVIDERS: PCP Internal Medicine; Visit Provider Physician Assistant | DX: M54.12 Radiculopathy, cervical region (principal); G56.02 Carpal tunnel syndrome, left upper limb | CPT/HCPCS: 20936; 22551; 22845; 22853; 64721; 99499 ==

== ENCOUNTER 2024-08-27 08:42 | Outpatient (AMB) | payer OTHER, SELFPAY ==
--- NOTE | 2024-08-27 08:54 | A.SPINEOV_ITS ---
Intake Visit Reasons: suture removal Intake Note: Mr. Peterson is here today to have his suture removal. Environmental Sampling Technician Required: No Allergies Penicillins Allergy (Intermediate, Verified 08/16/24 06:52) RASH (in childhood) Assessment & Plan Assessment & Plan (1) Carpal tunnel syndrome of left wrist: Code(s): G56.02 - Carpal tunnel syndrome, left upper limb Category: Medical Plan Procedure: C4-5 ACDF & subsequent left medial nerve release Fredy comes in today for suture removal for his left median nerve release surgery. He reports he has been doing very well since his surgery however still has quite a bit of numbness in his fingertips in the left hand. We discussed ho w this is likely secondary to postoperative inflammation. He expressed some concerns regarding pain with suture removal and we discussed risks/benefits for using local anesthesia. He decide to proceed with suture removal without injectable lidocaine. No new neurological deficits. Four Steri-Strips noted in place over anterior cervical incision site which were removed. Three simple interrupted sutures removed without issue from left hand. Patient tolerated procedure well. We will follow-up with the patient in 2-3 weeks for their 1st postoperative visit in regards to their ACDF. Lewis Oliveira MD,PhD [facility] Coding Level of Care Code Global (35378) Diagnoses Carpal tunnel syndrome of left wrist G56.02
== END 2024-08-27 09:14 | disposition home or self-care (01) ==
PROVIDERS: PCP Internal Medicine; Visit Provider Physician Assistant
DX: G56.02 Carpal tunnel syndrome, left upper limb (principal)
CPT/HCPCS: 99024

== ENCOUNTER → 2024-08-27 08:42 | Outpatient (BNVA) | payer OTHER, SELFPAY | PROVIDERS: PCP Internal Medicine; Visit Provider Physician Assistant ==

== ENCOUNTER 2024-08-29 07:28 | Outpatient (REF) | payer OTHER, SELFPAY ==
[2024-08-29 10:27] LABS: Estimated Average Glucose 117 mg/dL; Hemoglobin A1C 130.8345 umol/L; Hemoglobin A1c % 5.7 % (<6.0)
[2024-08-29 10:44] LABS: Alanine Aminotransferase 21 U/L (0-40); Alkaline Phosphatase 86 U/L (39-117); Aspartate Amino Transferase 29 U/L (5-37); Bilirubin Direct 0.3 mg/dL (0.0-0.5); Bilirubin Total 0.9 mg/dL (0.0-1.0); Cholesterol 145 mg/dL (<200); Glucose Fasting 126 mg/dL (60-99); HDL Cholesterol 43 mg/dL (>40); LDL Cholesterol Calculated 83 mg/dL (<100); Total Protein 6.7 g/dL (6.5-8.0); Triglycerides 96 mg/dL (<150)
[2024-08-29 11:59] LABS: Reflex LDLD? No
== END 2024-08-29 07:29 | disposition home or self-care (01) ==
LOC: HO.HMGCLDS 07:28
PROVIDERS: PCP Internal Medicine; Visit Provider Internal Medicine
DX: E78.5 Hyperlipidemia, unspecified (principal); R73.09 Other abnormal glucose
CPT/HCPCS: 36415; 80061; 80076; 82947; 83036

== ENCOUNTER 2024-09-17 08:57 | Outpatient (REF) | payer OTHER, SELFPAY | END 2024-09-17 08:58 | disposition home or self-care (01) | LOC: HO.HOSX 08:57 | PROVIDERS: Visit Provider Physician Assistant | DX: Z48.89 Encounter for other specified surgical aftercare (principal); M54.12 Radiculopathy, cervical region; M25.512 Pain in left shoulder | CPT/HCPCS: 72050 ==

== ENCOUNTER 2024-09-17 15:05 | Outpatient (AMB) | payer OTHER, SELFPAY ==
--- NOTE | 2024-09-17 15:21 | A.SPINEOV_ITS ---
Intake Visit Reasons: 2nd post op with xrays Intake Note: Mr. Peterson is here today for his 2nd post-op appointment with xrays. Executive Chef Assistant Required: No Allergies Penicillins Allergy (Intermediate, Verified 08/16/24 06:52) RASH (in childhood) Assessment & Plan Assessment & Plan (1) Left shoulder pain: Code(s): M25.512 - Pain in left shoulder Category: Medical (2) Cervical radiculopathy: Code(s): M54.12 - Radiculopathy, cervical region Category: Medical Plan Mr Peterson is about a month out from his anterior cervical fusion C4-5 for left arm pain. He did see significant relief of the left arm pain right after surgery. He has had some return of it now that he is being more active. It is located right over the top of the shoulder joint. He is getting some tingling into his 4th and 5th digits as well. His x-rays showed that the fusion healed up well. His incision is well healed. His strength is normal with the exception of his left deltoid which has a lot of pain with internal and external rotation as well as abduction. I am wondering if he does not have some issue in his shoulder. Since we have now address the cervical spine maybe it is worth considering sending him back to [facility] to see if they would consider an injection or some further workup on the shoulder. I will send another referral through to them and let them re-evaluate. I will get an updated shoulder x-rays a courtesy as his last 1 was about 8 months ago. He can follow up with us in 3 months. South Oliveira MD, PhD [facility] Orders: Orders XR cervical spine 4V Today M54.12 - Radiculopathy, cervical region XR shoulder LT min 2V Today M25.512 - Pain in left shoulder Coding Level of Care Code Global (95911) Diagnoses Left shoulder pain M25.512 Cervical radiculopathy M54.12
== END 2024-09-17 16:02 | disposition home or self-care (01) ==
PROVIDERS: PCP Internal Medicine; Visit Provider Physician Assistant
DX: M25.512 Pain in left shoulder (principal); M54.12 Radiculopathy, cervical region
CPT/HCPCS: 99024

== ENCOUNTER 2024-11-09 06:02 | Day surgery (SDC) | payer OTHER, SELFPAY ==
[2024-11-07 13:55] VITALS: BMI 34.7
--- NOTE | 2024-11-08 10:30 | P.CONAN_ITS ---
Documented by User: Nakia Choudhary NP 11/08/24 10:31 HPI - Anesthesia Eval Consult details Narrative: 64yo M for Colonoscopy s/p ACDF 05/2024 with GA-ETT 7.5 Follows [facility] [place] for aortic stenosis s/p AVR 2022, TAA (4.1cm). Optimized prior to spine surgery per 05/2024 workload Last cardiac office visit 11[facility] Active Problems Active Problems: All Active Problems Carpal tunnel syndrome of left wrist (Acute) Numbness of left hand (Acute) Left shoulder pain (Acute) Cervical radiculopathy (Acute) Thoracic aortic aneurysm (Acute) CAD (coronary artery disease) (Acute) SOB (shortness of breath) on exertion (Acute) Cervical spinal stenosis (Acute) Aortic valve replaced (Acute ~04/2023) Hyperlipidemia (Acute) HTN (hypertension) (Acute) Past Medical History Medical History Numbness Thoracic aortic aneurysm (TAA) Sciatica Cervical spinal stenosis Peyronie's disease Sleep apnea Pancreatitis (~2003) Hyperlipidemia HTN (hypertension) Aortic stenosis Family History Family History Father No problems noted. Mother AML (acute myeloblastic leukemia) Brother CAD (coronary artery disease) Family history of problems with anesthesia: No Surgical History Surgical History History of carpal tunnel release Hx of neck surgery History of cardiac cath (~03/2023) Aortic valve replaced (~04/2023) H/O colonoscopy (~10/2022) S/P cardiac catheterization Hx laparoscopic cholecystectomy History of Problems with Anesthesia: No Social History Social History Household Members: Spouse Housing: House Are you a primary progressive care manager to a significant other at home: No Do you presently have visiting nurse or other home services: No Alcohol intake: never Patient Tobacco Use Status: Former Tobacco user Tobacco use type: Cigarette Have you been hit, kicked, punched, or otherwise hurt by someone within the past year? 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 Allergies Allergy/AdvReac Type Severity Reaction Status Date / Time Penicillins Allergy Intermediate RASH (in Verified 11/09/24 06:43 childhood) Home Medications ?Medication ?Instructions ?Recorded ?Confirmed ?Last Taken ?Type atorvastatin 40 mg tablet 40 mg PO DAILY 10/14/21 11/07/24 11/09/24 History lisinopril 10 1 tab PO DAILY 10/14/21 11/07/24 Unknown History mg-hydrochlorothiazide 12.5 mg tablet ibuprofen 800 mg tablet 800 mg PO TID 12/20/23 11/07/24 08/06/24 History Exam Height,Weight and Vital Signs: Height 5 ft 11 in Weight 112.945 kg Narrative Narrative: ECHO 05/2024 Conclusions: - Normal left ventricular size and systolic function. There is moderately increased left ventricular wall thickness. The visually estimated ejection fraction is between 65-70%. - Elevated filling pressures. - There is mild dilatation of the ascending aorta measuring 4.10 cm. Aortic Valve A bioprosthetic aortic valve is present. The prosthetic aortic valve appears to be functioning normally. The peak aortic velocity is 2.17 m/s. There is no aortic valve regurgitation. EKG 11/2023 normal sinus rhythm with occasional PVCs otherwise normal EKG US carotid duplex BI 2022 IMPRESSION: 1. RIGHT: Minimal, non-hemodynamically significant stenosis of the proximal right internal carotid artery corresponding to a 0-49% stenosis by velocity criteria. 2. LEFT: Minimal, non-hemodynamically significant stenosis of the proximal left internal carotid artery corresponding to a 0-49% stenosis by velocity criteria. 3. Incidental note made of an irregular cardiac rhythm. Assessment and Plan Assessment Anesthesia Assessment: Chart Reviewed Final Anesthetic Review Family History of Problems with Anesthesia: No History of Problems with Anesthesia: No Documented by User: Demian Pizarro MD 11/09/24 07:16 [facility] Past Medical History Medical History Numbness Thoracic aortic aneurysm (TAA) Sciatica Cervical spinal stenosis Peyronie's disease Sleep apnea Pancreatitis (~2003) Hyperlipidemia HTN (hypertension) Aortic stenosis Family History Family History Father No problems noted. Mother AML (acute myeloblastic leukemia) Brother CAD (coronary artery disease) Surgical History Surgical History History of carpal tunnel release Hx of neck surgery History of cardiac cath (~03/2023) Aortic valve replaced (~04/2023) H/O colonoscopy (~10/2022) S/P cardiac catheterization Hx laparoscopic cholecystectomy Social History Social History Household Members: Spouse Housing: House Are you a primary progressive care manager to a significant other at home: No Do you presently have visiting nurse or other home services: No Alcohol intake: never Patient Tobacco Use Status: Former Tobacco user Tobacco use type: Cigarette Have you been hit, kicked, punched, or otherwise hurt by someone within the past year? 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 Allergies Allergy/AdvReac Type Severity Reaction Status Date / Time Penicillins Allergy Intermediate RASH (in Verified 11/09/24 06:43 childhood) Home Medications ?Medication ?Instructions ?Recorded ?Confirmed ?Last Taken ?Type atorvastatin 40 mg tablet 40 mg PO DAILY 10/14/21 11/07/24 11/09/24 History lisinopril 10 1 tab PO DAILY 10/14/21 11/07/24 Unknown History mg-hydrochlorothiazide 12.5 mg tablet ibuprofen 800 mg tablet 800 mg PO TID 12/20/23 11/07/24 08/06/24 History Exam Airway Mallampati Class: III TM Dist: >3cm Neck ROM: Full Assessment and Plan Assessment Anesthesia Assessment: Anesthesia Plan Discussed Final Anesthetic Review NPO: Yes ASA Class: III Final Preanesthetic Review: No Changes in Pt Med Stat, Meds/Allgs Chart Reviewed, Consent Obtained/Reviewed and Anes Risks/Benef Reviewed Patient Risk: Intermediate Procedure Risk: Low Anesthetic Plan Anesthetic Plan: TIVA Disposition: Standard PACU
--- OUTSIDE RECORDS SUMMARY | 2024-11-09 06:05 | XMS_ITS ---
Author Organization Tonny Mcdermott MD Address [address] [place], [place] [phone] Care Team Providers Care Supervisor Sunglasses Name Role Phone BaldemarTonny Primary Care Provider [phone] ALLERGIES Allergen (clinical drug ingredient) Drug/Non Drug Allergy documented on EMR Reaction Allergy Type Onset Date Status penicillin (uncoded) rash Allergy Active RESULTS Component Value Reference Range Notes Occult Blood, Stool, Guaiac Reviewed date:03/13/2024 03:52:36 PM Interpretation:Negative Performing Lab: Notes/Report: Negative Occult Blood, Stool, Guaiac Neg REASON FOR REFERRAL Reason SCREEN FOR COLON CAN CER Diagnosis 1 Screen for colon can cer (Z12.11) Referral Organization Tonny Mcdermott MD Referring Provider First Name Tonny Referring Provider Last Name Baldemar Referring Provider Speciality Internal M edicine Referred Provider Radames Mensah Referred Provider Specialty Gastroentero logy General Notes Mckenzie Wilkins 07/27/2024 11:36:21 AM EDT > 07/10/24 OFFICE NOTES RECEIVED Referral Priority Routine Referral Appointment Date 07/10/2024 REASON FOR VISIT annual visit, NO Covid symptoms, c/o left shoulder pain had ortho appt 02-29-24 MEDICATIONS Medication SIG (Take, Route, Frequency, Duration) Notes Start Date End Date Status Atorvastatin Calcium 40 MG TAKE 1 TABLET BY MOUTH EVERY DAY Active Clobetasol Propionate 0.05 % 1 application to affected area Externally Twice a day for 10 days 06/21/2014 Not-Taking Metoprolol Tartrate 25 MG 1 tablet with food Orally Twice a day Active Lisinopril-hydroCHLOROthi azide 10-12.5 MG TAKE 1 TABLET BY MOUTH EVERY DAY Active Albuterol Sulfate HFA 108 (90 Base) MCG/ACT 1 puff as needed Inhalation every 4 hrs for 30 days 08/23/2022 Not-Taking Aspir-Low 81 MG 1 tablet Orally Once a day for 30 day(s) Active Ibuprofen 800 MG TAKE 1 TABLET BY CONTRERAS TH EVERY 8 HOURS WITH FOOD OR MILK NEEDED for 30 Active SOCIAL HISTORY Tobacco Use: Social History Observation Description Date Details (start date - stop date) Former Smoker NA - NA Sex Assigned At : Social History Observation Description Sex Assigned At Unknown Tobacco Use/Smoking Question Answer Notes Patient is a former smoker How long has it been since y ou last smoked? > 10 years Additional Findings: Tobacco Non-User Fo rmer smoker, currently using no form of tobacco Alcohol Screen Question Answer Notes Did you have a drink containing alcohol in the p ast year? No Points 0 Interpretation Negative VITAL SIGNS BMI 35.01 kg/m2 02/27/2024 Blood pressure systolic 154 mm Hg 02/27/20 24 Blood pressure diastolic 76 mm Hg 024 Height 70 in 02/27/2024 Weight 244 lbs 02/27/2024 weight is up 6 pounds since 10-24-23 Encounters Encounter Location Date Provider Diagnosis Tonny Mcdermott MD [address] [place], [place] [phone] 02/27/2024 Tonny Mcdermott H/O aortic valve replacement Z95.2 ; Annual physical exam Z00.00 ; Mild anemia D64.9 ; Prediabetes R73.09 ; Hyperlipidemia, unspecified E78.5 ; Essential hypertension I10 ; Colon cancer screening Z12.11 and Depression screening Z13.31 ASSESSMENTS Encounter Date Diagnosis Assessment Notes Treatment Notes Treatment Clinical Notes 02/27/2024 H/O aortic valve replacement (ICD-10 - Z95.2) needs appt with dr mensah/ REFERRAL FOR DR BROOKLYNN KIRBY AND WILL BE FAXED WHEN LOCKED, ED WILL BE CONTACTED WITH APPT 02/27/2024 Annual physical exam (ICD-10 - Z00.00) labs reviewed and discused with patient 02/27/2024 Mild anemia (ICD-10 - D64.9) THE ORDER WAS PRINTED AND GIVEN TO ED HE WILL GOT TO [facility] , pending labs, will continue to monitor 02/27/2024 Prediabetes (ICD-10 - R73.09) stable, no kurt for medication at this time 02/27/2024 Hyperlipidemia, unspecified (ICD-10 - E78.5) stable, will continue current regiment 02/27/2024 Essential hypertension (ICD-10 - I10) stable, will continue current regiment 02/27/2024 Colon cancer screening (ICD-10 - Z12.11) guaiac negative 02/27/2024 Depression screening (ICD-10 - Z13.31) negative scren PLAN OF TREATMENT Medication Medication Name Sig Start Date Stop Date Notes Atorvastatin Calcium 40 MG TAKE 1 TABLET BY MOUTH EVERY DAY Metoprolol Tartrate 25 MG 1 tablet with food Orally Twice a day Lisinopril-hydroCHLOROthiazi de 10-12.5 MG TAKE 1 TABLET BY MOUTH EVERY DAY Treatment Notes Assessment Notes H/O aortic valve replacement needs appt with dr mensah/ REFERRAL FOR DR BROOKLYNN KIRBY AND WILL BE FAXED WHEN LOCKED, ED WILL BE CONTACTED WITH APPT Annual physical exam labs reviewed and d iscused with patient Mild anemia THE ORDER WAS PRINTE D AND GIVEN TO ED HE WILL GOT TO [facility], pending labs, will continue to monitor Prediabetes stable, no kurt for m edication at this time Hyperlipidemia, unspecified stable, will continue current regiment Essential hypertension stable, will cont inue current regiment Colon cancer screening guaiac negative Depression screening negative scren Referrals Referral Date Details 07/10/2024 07/10/2024, SCREEN F OR COLON CANCER, Radames Mensah Next Appt Details Follow Up: 6 Months, Reason: Provider Name:Tonny ashby, 11/29/2024 03:30:00 PM, [address] [place] [address], [address], [place], [place], [phone], Provider Name:Tonny Wright isma, 02/25/2025 07:45:00 AM, [address], [address], [place], [phone], Provider Name:Tonny Wright isma, 03/04/2025 04:00:00 PM, [address], [address], [place], [phone], Progress Notes * Examination Category Sub-Category Detail Notes General Examination GENERAL APPEARANCE: well dev eloped, well nourished, in no acute distress HEAD: normocephalic, atrau matic EYES: pupils equal, round, reactive to light and accommodation, sclera non- icteric EARS: normal THROAT: clear NECK/THYROID: neck supple, full ra nge of motion, no cervical lymphadenopathy, no bruits HEART: regular rate and rhy thm, S1, S2 normal, no murmurs LUNGS: clear to auscultatio n bilaterally ABDOMEN: soft, nontender, non distended, bowel sounds present, normal, no organomegaly , no masses palpable NEUROLOGIC: nonfocal, motor stre ngth normal upper and lower extremities, sensory exam intact SKIN: warm and dry, no niko picious lesions EXTREMITIES: no clubbing, cyanosi s, or edema MALE GENITOURINARY: circumcised, no peni le lesions or discharge, testes descended bilaterally RECTAL EXAM: normal tone, no exte rnal hemorrhoids, no masses palpable, prostate normal, stool guaiac negative ORAL CAVITY: mucosa moist History and Physical Notes * HPI (History of Present Illness) Category Sub-Category Detail Notes Depression Screening PHQ-9 Little inte rest or pleasure in doing things: Not at all Feeling down, depressed, or hopeless: No t at all Trouble falling or staying asleep, or sl eeping too much: Not at all Feeling tired or having little energy: N ot at all Poor appetite or overeating: Not at all Feeling bad about yourself o r that you are a failure, or have let yourself or your family down: Not at all Trouble concentrating on thi ngs, such as reading the newspaper or watching television: Not at all Moving or speaking so slowly that other people could have noticed; or the opposite, being so fidgety or restless that you have been moving around a lot more than usual: Not at all Thoughts that you would be b sage off or of hurting yourself in some way: Not at all Total Score: 0 Interpretation and Intervention Depression Adria gr Findings: Negative Follow-Up for Depression: : review of PH Q-9 found negative result, no follow-up needed SDOH Questions SDOH Questions In the past year have you been worried about losing housing?: No In the past year have you or any family members you live with been unable to get any of the following when it was really needed? Check all that apply:: None Fall Risk History Have you had any falls with injury in the past year?: No Have you had two or more falls in the st year?: No Communication Needs Communication Needs Does the patient have a hearing impairment: No Does the patient have a vision impairmen t?: Yes ?If yes, what is the vision impairment?: Glasses Does the patient have a cognition impair ment?: No Consultation Request Notes Referral Date Referring Provider Referred Provider Not es 02/27/2024 Tonny Mcdermott Robert SCREEN FOR COLON CANCER
--- OUTSIDE RECORDS SUMMARY | 2024-11-09 06:05 | XMS_ITS ---
Author Organization Tonny Mcdermott MD Address [address] [place] [phone] Care Team Providers Care Boat Wrapper Name Role Phone Baldemar Tonny Primary Care Provider [phone] REASON FOR VISIT FASTING LIPIDS Encounters Encounter Location Date Provider Diagnosis Tonny Mcdermott MD [address] [facility] [address] [place] [phone] 08/31/2024 Tonny Mcdermott Hyperlipidemia, unspecified E78.5 and Prediabetes R73.09 ASSESSMENTS Encounter Date Diagnosis Assessment Notes Treatment Notes Treatment Clinical Notes 08/31/2024 Hyperlipidemia, unspecified (ICD-10 - E78.5) 08/31/2024 Prediabetes (ICD-10 - R73.09) PLAN OF TREATMENT Pending Test Test Name Order Date Liver Panel 08/31/2024 Glucose Fasting 08/31/2024 Lipid Panel with Reflex 08/31/2024 Hemoglobin A1c 08/31/2024 Next Appt Details Provider Name:Tonny ashby, 11/29/2024 03:30:00 PM, [address] [place] [address], [address], [place], [phone], Provider Name:Tonny ashby, 02/25/2025 07:45:00 AM, [address] [place] [address], [address], [place], [phone], Provider Name:Tonny ashby, 03/04/2025 04:00:00 PM, [address] [place] [address], [address], [place], [phone],
--- OUTSIDE RECORDS SUMMARY | 2024-11-09 06:05 | XMS_ITS ---
Author Organization Tonny Mcdermott MD Address [address] [place], [place] [phone] Care Team Providers Care Record Keeper Name Role Phone Baldemar Tonny Primary Care Provider ALLERGIES Allergen (clinical drug ingredient) Drug/Non Drug Allergy documented on EMR Reaction Allergy Type Onset Date Status penicillin (uncoded) rash Allergy Active REASON FOR REFERRAL Reason SHORTNESS OF BREATH ON EXERTION Diagnosis 1 Shortness of breath on exertion (R06.02) Referral Organization Tonny Mcdermott MD Referring Provider First Name Tonny Referring Provider Last Name Baldemar Referring Provider Speciality Internal M edicine Referred Provider MILKA PROCTOR Referred Provider Specialty Pulmonary Di seases General Notes Mckenzie Wilkins 09/24/2024 03:59:50 PM EDT > THE REFERR[place] HAS BEEN [place] [facility] [facility] Referral Priority Routine Referral Appointment Date 11/12/2024 REASON FOR VISIT 6 MO F/U MEDICATIONS Medication SIG (Take, Route, Frequency, Duration) Notes Start Date End Date Status Aspir-Low 81 MG 1 tablet Orally Once a day for 30 day(s) Active Ibuprofen 800 MG TAKE 1 TABLET BY CONTRERAS TH EVERY 8 HOURS WITH FOOD OR MILK NEEDED for 30 Active Metoprolol Tartrate 25 MG 1 tablet with food Orally Twice a day Active Atorvastatin Calcium 40 MG TAKE 1 TABLET BY MOUTH EVERY DAY for 90 Active Lisinopril-hydroCHLOROthi azide 10-12.5 MG TAKE 1 TABLET BY MOUTH EVERY DAY for 90 Active Albuterol Sulfate HFA 108 (90 Base) MCG/ACT 1 puff as needed Inhalation every 4 hrs for 30 days 08/23/2022 Not-Taking Clobetasol Propionate 0.05 % 1 application to affected area Externally Twice a day for 10 days 06/21/2014 Not-Taking VITAL SIGNS BMI 35.87 kg/m2 09/24/2024 Blood pressure systolic 152 mm Hg 09/24/20 24 Blood pressure diastolic 74 mm Hg 024 Height 70 in 09/24/2024 Weight 250 lbs 09/24/2024 Encounters Encounter Location Date Provider Diagnosis Tonny Mcdermott MD [address] [place], [place] [phone] 09/24/2024 Tonny Mcdermott H/O aortic valve replacement Z95.2 ; Cervical disc disease M50.90 and Shortness of breath on exertion R06.02 ASSESSMENTS Encounter Date Diagnosis Assessment Notes Treatment Notes Treatment Clinical Notes 09/24/2024 H/O aortic valve replacement (ICD-10 - Z95.2) need the results of echo done by dr kam this month/ REQUEST MADE [place] [facility] [place]/24/2024 Cervical disc disease (ICD-10 - M50.90) seems that he may be having trouble with disc still 09/24/2024 Shortness of breath on exertion (ICD-10 - R06.02) at times gets wheezing and tried inhaler with no improvemnt/ referrlal to [facility] PLAN OF TREATMENT Treatment Notes Assessment Notes H/O aortic valve replacement need the re sults of echo done by dr kam this month/ REQUEST MADE [place] [facility] [place] Cervical disc disease seems that he may be having trouble with disc still Shortness of breath on exertion at times gets wheezing and tried inhaler with no improvemnt/ referrlal to [facility] [place] Referrals Referral Date Details 11/12/2024 11/12/2024, SHORTNES S OF BREATH ON EXERTION, MILKA PROCTOR Next Appt Details Follow Up: 2 Months, Reason: Provider Name:Tonny ashby, 11/29/2024 03:30:00 PM, [address] [place] [address], [address], [place], [phone], Provider Name:Tonny ashby, 02/25/2025 07:45:00 AM, [address] [place] [address], [address], [place], [place], [phone], Provider Name:Tonny ashby, 03/04/2025 04:00:00 PM, [address] [place] [address], [address], [place], [place], [phone], Progress Notes * Examination Category Sub-Category Detail Notes General Examination GENERAL APPEARANCE: alert, w ell hydrated, in no distress HEAD: normocephalic HEART: grade 2/6 systolic m urmur at left sternal border LUNGS: no wheezes, rales, r honchi, good air movement, clear to auscultation bilaterally SKIN: good turgor Consultation Request Notes Referral Date Referring Provider Referred Provider Not dianne 09/24/2024 Tonny Mcdermott MOHAMMAD SHORTNES S OF BREATH ON EXERTION
--- OUTSIDE RECORDS SUMMARY | 2024-11-09 06:05 | XMS_ITS ---
Author Organization [facility] Address [address] [place] [address] Care Team Providers Care Carpenter'S Helper Name Role Phone Tonny Mcdermott MD Primary Care Provider UnaRadames Borrego Unavailable [phone] REASON FOR VISIT screening,hx polyps Encounters Encounter Location Date Provider Diagnosis [facility] Out[facility] [address] [place] [phone] 11/09/2024 Radames Molina PLAN OF TREATMENT Next Appt Details Provider Name:Radames Molina , 11/09/2024 07:30:00 AM, [address] [place] [address] , [place], [place], [phone],
--- OUTSIDE RECORDS SUMMARY | 2024-11-09 06:05 | XMS_ITS | Patient Health Record ---
Author Organization [facility] Address [address] [place] [id number] Care Team Providers Care Maintenance Mechanic Helper Name Role Phone Tonny Mcdermott MD Primary Care Provider Radames Sal Unavailable [phone] ALLERGIES Allergen (clinical drug ingredient) Drug/Non Drug Allergy documented on EMR Reaction Allergy Type Onset Date Status Penicillin Unknown Drug Allergy Active REASON FOR REFERRAL No Information MEDICATIONS Medication SIG (Take, Route, Frequency, Duration) Notes Start Date End Date Status Multivitamin Adult U nknown Tylenol prn Unknown Metoprolol Tartrate 25 MG Oral for 90 Active Clindamycin HCl 300 MG TAKE 2 CAPSULES B Y MOUTH 30 MIN PRIOR TO DENTAL APPOINTMENT DIRECTED Oral for 10 for dental work Active Lisinopril-hydroCHLORO thiazide 10-12.5 MG 1 tablet Orally Once a day Active Ibuprofen 800 MG Oral for 30 A ctive Atorvastatin Calcium 40 MG TAKE 1 TABLET BY MOUTH EVERY DAY Oral for 90 Active Aspirin 81 81 MG 1 tablet Orally Once a day for 30 day(s) Active IMMUNIZATIONS Vaccine Route Administration Date Status Comme nts Influenza Unknown 11/10/2022 Refused SOCIAL HISTORY Tobacco Use: Social History Observation Description Date Details (start date - stop date) Former Smoker NA - NA Sex Assigned At : Social History Observation Description Sex Assigned At Unknown Tobacco Use/Smoking Question Answer Notes Patient is a former smoker How long has it been since you last smoked? > 10 years Alcohol Screen Question Answer Notes Did you have a drink containing alcohol in the p ast year? No Points 0 Interpretation Negative PROBLEMS Problem Type ICD Code Onset Dates Problem Status W/U Status Risk SNOMED Code Notes Problem Encounter for screening for malignant neoplasm of colon (Z12.11) Active confirmed 596467760 Problem Preprocedural examination (Z01.818) Active confirmed 498030492 Problem History of adenomatous polyp of colon (Z86.010) Active confirmed History of adenomatous polyp of colon (922148826) Problem skilled nursing (current) use of aspirin (Z79.82) Active confirmed Long-term current use of antiplatelet drug ([id number] 1) VITAL SIGNS Blood pressure diastolic 00 mm Hg 07/10/2024 Height 71 in 07/10/2024 Blood pressure systolic 00 mm Hg 07/10/2024 Weight 249 lbs 07/10/2024 BMI 34.72 kg/m2 07/10/2024 Encounters Encounter Location Date Provider Diagnosis [facility] [address] [place] [phone] 11/09/2024 Radames Molina [facility] [address] [place] [address] 07/10/2024 Radames Molina Encounter for screening for malignant neoplasm of colon Z12.11 ; Preprocedural examination Z01.818 ; History of adenomatous polyp of colon Z86.010 and skilled nursing (current) use of aspirin Z79.82 ASSESSMENTS Encounter Date Diagnosis Assessment Notes Treatment Notes Treatment Clinical Notes 07/10/2024 Encounter for screening for malignant neoplasm of colon (ICD-10 - Z12.11) Stop aspirin and Ibuprofen for a week before the colonoscopy---we will get a clearance from Dr. Gaytan for the colonoscopy, stoppage of aspirin, and ? of need for antibotics for the valve replacement 07/10/2024 Preprocedural examination (ICD-10 - Z01.818) 07/10/2024 History of adenomatous polyp of colon (ICD-10 - Z86.010) 07/10/2024 medical terminologist (current) use of aspirin (ICD-10 - Z79.82) PLAN OF TREATMENT Future Test Test Name Order Date COLONOSCOPY 04/22/2017 COLONOSCOPY 11/10/2022 COLONOSCOPY 07/10/2024 Next Appt Details Provider Name:Radames Debra Molina , 11/09/2024 07:30:00 AM, [address] [place] [address] , [place], [place], [phone], Insurance Providers Payer Name Payer Address Payer Phone Subscriber Number Group Number Insured Name Patient Relationship to Insured Coverage Start Date Coverage End Date [employer] P[employer] [address] [place] [phone] [id number] YONATAN ORELLANA Self - patient is the insured MEDICAL (GENERAL) HISTORY Medical History History ICD Code Colonoscopy 09-02-2006 for ev aluation of Heme + stool---negative except for internal hemorrhoids Hyperlipidemia Hypertension History of pancreatitis in 2003 in relat ion to elevated triglycerides Denies IN,DM,CVA,Lung disease,renal dise ase History of sleep apnea--used CPAP--resolved with weight loss, but has gained 30 # bsck Peyronie's disease Colonoscopy 07/2017 with 3 tubular adenom as removed Cardiac catheterization-normal coronarie s but moderate aortic stenosis Surgical History Surgery Date(Month/Year) Cholecystectomy Aortic valve replacement--bovine valve 0 05/03/2023 Neck surgery scheduled for July of [address] Oliveira
--- OUTSIDE RECORDS SUMMARY | 2024-11-09 06:05 | XMS_ITS ---
Author Organization [facility] Address [address] [place] [address] Care Team Providers Care Residential Air Sealing Technician Name Role Phone Tonny Mcdermott MD Primary Care Provider Radames Sal [phone] ALLERGIES Allergen (clinical drug ingredient) Drug/Non Drug Allergy documented on EMR Reaction Allergy Type Onset Date Status Penicillin Unknown Drug Allergy Active REASON FOR VISIT Patient presents today for a discuss colonoscopy MEDICATIONS Medication SIG (Take, Route, Frequency, Duration) Notes Start Date End Date Status Multivitamin Adult U nknown Tylenol prn Unknown Metoprolol Tartrate 25 MG Oral for 90 Active Clindamycin HCl 300 MG TAKE 2 CAPSULES B Y MOUTH 30 MIN PRIOR TO DENTAL APPOINTMENT DIRECTED Oral for 10 for dental work Active Ibuprofen 800 MG Oral for 30 A ctive Lisinopril-hydroCHLORO thiazide 10-12.5 MG 1 tablet Orally Once a day Active Atorvastatin Calcium 40 MG TAKE 1 TABLET BY MOUTH EVERY DAY Oral for 90 Active Aspirin 81 81 MG 1 tablet Orally Once a day for 30 day(s) Active SOCIAL HISTORY Tobacco Use: Social History [...] Points 0 Interpretation Negative VITAL SIGNS BMI 34.72 kg/m2 07/10/2024 Blood pressure systolic 00 mm Hg 07/10/20 24 Blood pressure diastolic 00 mm Hg 024 Height 71 in 07/10/2024 Weight 249 lbs 07/10/2024 Encounters Encounter Location Date Provider Diagnosis [facility] [address] [place] [address] 07/10/2024 Radames Molina Encounter for screen ing for malignant neoplasm of colon Z12.11 ; Preprocedural examination Z01.818 ; History of adenomatous polyp of colon Z86.010 and assisted (current) use of aspirin Z79.82 ASSESSMENTS Encounter [...] polyp of colon (ICD-10 - Z86.010) 07/10/2024 assisted (current) use of aspirin (ICD-10 - Z79.82) PLAN OF TREATMENT Treatment Notes Assessment Notes Encounter for screening for malignant neoplasm of colon Stop aspirin and Ibuprofen for a week before the colonoscopy---we will get a clearance from Dr. Gaytan for the colonoscopy, stoppage of aspirin, and ? of need for antibotics for the valve replacement Future Test Test Name Order Date COLONOSCOPY 07/10/2024 Next Appt Details Follow Up: prn, Reason: Provider Name:Radames Molina , 11/09/2024 07:30:00 AM, [address] [place] [address], [phone], Progress Notes * Examination Category Sub-Category Detail Notes General Examination GENERAL APPEARANCE: pleasant , well nourished, well developed, in no acute distress HEAD: EYES: sclera non-icteric EARS: NOSE: THROAT: NECK/THYROID: no cervical lymphade nopathy, neck supple HEART: S1, S2 normal CHEST: LUNGS: clear to auscultatio n bilaterally ABDOMEN: normal bowel sounds, no guarding or rigidity, no guarding or rigidity, no masses palpable, soft, nontender, nondistended NEUROLOGIC: alert and oriented SKIN: nonjaundiced, no spi radhika angiomata EXTREMITIES: no edema PERIPHERAL PULSES: BACK: BREASTS: MUSCULOSKELETAL: MALE GENITOURINARY: LYMPH NODES: RECTAL EXAM: FEMALE GENITOURINARY: ORAL CAVITY: mucosa moist
--- OUTSIDE RECORDS SUMMARY | 2024-11-09 06:06 | XMS_ITS | Patient Health Record ---
Author Organization Tonny Mcdermott MD Address [address] [place], [place] [id number] Care Team Providers Care Adhesion Tester Name Role Phone Tonny Mcdermott Primary Care Provider ALLERGIES Allergen (clinical drug ingredient) Drug/Non Drug Allergy documented on EMR Reaction Allergy Type Onset Date Status penicillin (uncoded) rash Allergy Active RESULTS Component Value Reference Range Notes Complete Blood Count Auto Di ff Reviewed date:02/19/2024 04:56:50 PM Interpretation: Performing Lab:[facility], [address] [place] [phone] Notes/Report: White Blood Count 5.5 4.8-10.8 X10*3/uL Red Blood Count 4.40 4.60-5.80 X10*6/uL Hemoglobin 13.8 14.0-18.0 g/dl Hematocrit 39.7 42.0-52.0 % Mean Corpuscular Volume 90.2 80.0-98.0 fL Mean Corpuscular Hemoglobin 31.4 27.0-33.0 pg Mean Corpuscular HGB Conc 34.8 31.0-36.0 g/dl Red Cell Distribution Width 13.3 11.0-16.0 % Platelet Count 169 160-400 X10*3/uL Mean Platelet Volume 11.2 9.4-12.4 fL Neutrophils Percent Auto 64.5 45-73 % Imm Gran Pct Auto 0.2 0.0-0.4 % Lymphocytes Percent Auto 19.2 20-40 % Monocytes Percent Auto 9.7 2-11 % Eosinophils Percent Auto 5.3 0-4 % Basophils Percent Auto 1.1 0-2 % NRBC Pct Auto 0.0 0.0-0.2 /100WBC Neutrophils Absolute Auto 3.5 2.0-8.3 x10*3/u L Imm Gran Abs Auto 0.01 0.00-0.03 X10*3/uL Lymphocytes Absolute Auto 1.1 1.2-4.9 X10*3/u L Monocytes Absolute Auto 0.5 0.1-1.2 X10*3/uL Eosinophils Absolute Auto 0.3 0.0-0.4 X10*3/u L Basophils Absolute Auto 0.1 0.0-0.2 X10*3/uL NRBC Abs Auto 0.000 0.0-0.012 X10*3/uL Comprehensive [place]. Panel Fa st Reviewed date:02/19/2024 04:54:29 PM Interpretation: Performing Lab:[facility], [address] [place] [phone] Notes/Report: Sodium 138 135-145 mmol/L Potassium 4.2 3.3-5.1 mmol/L Chloride 104 96-108 mmol/L Carbon Dioxide 27 22-29 mmol/L Anion Gap 11 12-20 Blood Urea Nitrogen 17 9-16 mg/dL Creatinine 0.82 0.5-1.4 mg/dL Estimated Glomerular Filt Rate > 60 NOTE: For -Palauan individuals, multiply the result by 1.210. Chronic Kidney Disease: Estimated GFR < 60 mL/min/1.73m2 Severe Kidney Disease: Estimated GFR < 15 mL/min/1.73m2 Glucose Fasting 118 60-99 mg/dL A fasting glucose from 100-125 mg/dl is considered impaired (pre-diabetes). Calcium 9.4 8.4-10.2 mg/dL Bilirubin Total 0.7 0.0-1.0 mg/dL Aspartate Amino Transferase 29 5-37 U/L Alanine Aminotransferase 25 0-40 U/L Total Protein 6.8 6.5-8.0 g/dL Albumin Level 4.1 3.5-5.0 g/dL Alkaline Phosphatase 97 39-117 U/L Lipid Panel Reviewed date:02/19/2024 04:55:13 PM Interpretation: Performing Lab:[address] [phone] Notes/Report: Triglycerides 34 <150 mg/dL Desirable Triglyceride: less than 150 mg/dL Borderline High Triglyceride 150-199 mg/dL High Triglyceride: 200-499 mg/dL Very High Triglyceride: greater than or equal to 5OO mg/dL Cholesterol 136 <200 mg/dL Desirable Cholesterol: less than 200 mg/dL Borderline High Cholesterol: 200-239 mg/dL High Cholesterol: greater than 239 mg/dL LDL Cholesterol Calculated 71 <100 mg/dL Desirable LDL: less than 100 mg/dL Near Optimal/Above Optimal LDL: 110-129 mg/dL Borderline High LDL: 130-159 mg/dL High LDL: 160-189 mg/dL Very High LDL: greater than or equal to 190 mg/dL HDL Cholesterol 59 >40 mg/dL Desirable HDL: greater than 40 mg/dL Note: This HDL assay may give artificially low results in patients with liver disease. PSA,Total (Free>4and<10) Reviewed date:02/19/2024 04:54:06 PM Interpretation: Performing Lab:[facility], [address] [place] [phone] Notes/Report: PSA,Total (Free>4and<10) 0.55 0.00-4.00 ng/mL A Free PSA was not performed: The percentage of Free PSA can be used to enhance the differentiation of prostate cancer from benign prostatic disease in subjects whose PSA levels are between 4.0 and 10.0 ng/mL. For subjects whose PSA levels are below 4.0 or above 10.0 ng/mL, the risk of prostate cancer is determined on the basis of the PSA alone. Therefore the % Free PSA is recommended only for those subjects whose PSA levels are between 4.0 and 10.0 ng/mL. PSA methodology: Javier Alinity i Chemiluminescent Microparticle Immunoassay (CMIA) Microalbumin, Random Reviewed date:02/19/2024 04:56:15 PM Interpretation: Performing Lab:[facility], [address] [place] [phone] Notes/Report: Creatinine Urine 102.47 Microalbumin Urine 317.0 Microalbum/Creatinine Ratio Ur 309.3 <30 ug/mg cr Albumin/Creatinine Ratio Reference Ranges: Normal: < 30 ug/mg creatinine Microalbuminuria: 30 - 300 ug/mg creatinine Clinical Albuminuria: > 300 ug/mg creatinine Hemoglobin A1c Reviewed date:02/19/2024 04:55:24 PM Interpretation: Performing Lab:[facility], [address] [place] [phone] Notes/Report: Hemoglobin A1c % 5.4 <6.0 % Hemoglobin A1C Reference Range Adults: 4.8 - 6.0 % Non diabetic: < 6.0 % Goal: < 7.0 % Additional Action Suggested: > 8.0 % Note: Hemoglobin A1c results are invalid for patients with abnormal amounts of HbF. Blood transfusions may impact the HbA1c concentration in the patient sample. Estimated Average Glucose 108 eAG = Estimated average glucose which is %A1C expressed as average glucose, using the formula of the A3R-Qmifafh Average Glucose study (ADAG), Diabetes Care, Vol.31,#8, Jun. 2007 UA CC w/rflx Micro + Cult Reviewed date:02/19/2024 04:57:22 PM Interpretation: Performing Lab:[facility], [address] [place] [phone] Notes/Report: Urine, Clean Catch Color Urine Yellow Appearance Urine Clear PH 6.0 5.0-9.0 Glucose Urine UA Negative Negative mg/dL Urine Blood Negative Negative Specific [place] - Urine 1.020 1.005-1.025 Urine Protein 30 (1+) Neg-Trace mg/dL Urine Ketones Negative Negative mg/dL Nitrite Urine Negative Negative Leukocyte Esterase Urine Negative Negative UA ClnCatch+Micro w/rflx Cul t Reviewed date:02/19/2024 04:58:14 PM Interpretation: Performing Lab:[facility], [address] [place] [phone] Notes/Report: Urine, Clean Catch Color Urine Yellow Appearance Urine Clear PH 6.0 5.0-9.0 Glucose Urine UA Negative Negative mg/dL Urine Blood Negative Negative Specific [place] - Urine 1.020 1.005-1.025 Urine Protein 30 (1+) Neg-Trace mg/dL Urine Ketones Negative Negative mg/dL Nitrite Urine Negative Negative Leukocyte Esterase Urine Negative Negative RBC Urine 0-2 0-2 /HPF WBC Urine 0-5 0-5 /HPF Squamous Epithelial Cell Urine 0-2 0-2 /HPF Bacteria Urine None Seen None Seen Hyaline Casts Urine 0-2 0-2 /LPF Occult Blood, Stool, Guaiac Reviewed date:03/13/2024 03:52:36 PM Interpretation:Negative Performing Lab: Notes/Report: Negative Occult Blood, Stool, Guaiac Neg Complete Blood Count no Diff Reviewed date:03/01/2024 04:27:02 PM Interpretation: Performing Lab:[address] [phone] Notes/Report: White Blood Count 5.6 4.8-10.8 X10*3/uL Red Blood Count 4.54 4.60-5.80 X10*6/uL Hemoglobin 14.0 14.0-18.0 g/dl Hematocrit 40.9 42.0-52.0 % Mean Corpuscular Volume 90.1 80.0-98.0 fL Mean Corpuscular Hemoglobin 30.8 27.0-33.0 pg Mean Corpuscular HGB Conc 34.2 31.0-36.0 g/dl Red Cell Distribution Width 13.2 11.0-16.0 % Platelet Count 164 160-400 X10*3/uL Mean Platelet Volume 11.1 9.4-12.4 fL NRBC Pct Auto 0.0 0.0-0.2 /100WBC NRBC Abs Auto 0.000 0.0-0.012 X10*3/uL Prothrombin Time INR Reviewed date:02/29/2024 02:21:44 PM Interpretation: Performing Lab:[address] [phone] Notes/Report: Prothrombin Time 11.4 11.1-13.3 SEC INTERNATIONAL NORM RATIO 0.9 0.9-1.1 INTERNATIONAL NORMALIZED RATIO (INR) REFERENCE RANGES Reference Range For patients not on anticoagulant therapy: 0.9 - 1.1 INR ranges for oral anticoagulant therapy: For prevention and treatment of venous thrombosis and pulmonary embolism: 2.0 - 3.0 For acute myocardial infarction with aspirin therapy: 2.0 - 3.0 For acute myocardial infarction without aspirin therapy: 3.0 - 4.0 For patients with mechanical prosthetic heart valves: 2.5 - 3.5 Basic Metabolic Panel Reviewed date:03/01/2024 04:25:10 PM Interpretation: Performing Lab:[address] [phone] Notes/Report: Sodium 140 135-145 mmol/L Potassium 3.9 3.3-5.1 mmol/L Chloride 106 96-108 mmol/L Carbon Dioxide 27 22-29 mmol/L Anion Gap 11 12-20 Blood Urea Nitrogen 19 9-16 mg/dL Creatinine 0.85 0.5-1.4 mg/dL Estimated Glomerular Filt Rate > 60 NOTE: For -Palauan individuals, multiply the result by 1.210. Chronic Kidney Disease: Estimated GFR < 60 mL/min/1.73m2 Severe Kidney Disease: Estimated GFR < 15 mL/min/1.73m2 Glucose Random 124 60-115 mg/dL Calcium 9.4 8.4-10.2 mg/dL Liver Panel Reviewed date:08/29/2024 03:57:46 PM Interpretation: Performing Lab:[address] [phone] Notes/Report: Bilirubin Total 0.9 0.0-1.0 mg/dL Bilirubin Direct 0.3 0.0-0.5 mg/dL Aspartate Amino Transferase 29 5-37 U/L Alanine Aminotransferase 21 0-40 U/L Total Protein 6.7 6.5-8.0 g/dL Albumin Level 4.0 3.5-5.0 g/dL Alkaline Phosphatase 86 39-117 U/L Glucose Fasting Reviewed date:08/29/2024 03:48:07 PM Interpretation: Performing Lab:[address] [phone] Notes/Report: Glucose Fasting 126 60-99 mg/dL A fasting glucose of 126 mg/dl or greater on more than one occasion is considered diagnostic of diabetes. Lipid Panel with Reflex Reviewed date:08/30/2024 12:22:42 PM Interpretation: Performing Lab:[facility] [address], [place] [address] Notes/Report: Triglycerides 96 <150 mg/dL Desirable Triglyceride: less than 150 mg/dL Borderline High Triglyceride 150-199 mg/dL High Triglyceride: 200-499 mg/dL Very High Triglyceride: greater than or equal to 5OO mg/dL Cholesterol 145 <200 mg/dL Desirable Cholesterol: less than 200 mg/dL Borderline High Cholesterol: 200-239 mg/dL High Cholesterol: greater than 239 mg/dL LDL Cholesterol Calculated 83 <100 mg/dL Desirable LDL: less than 100 mg/dL Near Optimal/Above Optimal LDL: 110-129 mg/dL Borderline High LDL: 130-159 mg/dL High LDL: 160-189 mg/dL Very High LDL: greater than or equal to 190 mg/dL HDL Cholesterol 43 >40 mg/dL Desirable HDL: greater than 40 mg/dL Note: This HDL assay may give artificially low results in patients with liver disease. Hemoglobin A1c Reviewed date:08/29/2024 03:51:33 PM Interpretation: Performing Lab:[facility], [address] [place] [phone] Notes/Report: Hemoglobin A1c % 5.7 <6.0 % Hemoglobin A1C Reference Range Adults: 4.8 - 6.0 % Non diabetic: < 6.0 % Goal: < 7.0 % Additional Action Suggested: > 8.0 % Note: Hemoglobin A1c results are invalid for patients with abnormal amounts of HbF. Blood transfusions may impact the HbA1c concentration in the patient sample. Estimated Average Glucose 117 eAG = Estimated average glucose which is %A1C expressed as average glucose, using the formula of the U7P-Qliyjhi Average Glucose study (ADAG), Diabetes Care, Vol.31,#8, Jun. 2007 REASON FOR REFERRAL Reason pinched nerve Diagnosis 1 Cervical disc diseas e (M50.90) Referral Organization Tonny Mcdermott MD Referring Provider First Name Tonny Referring Provider Last Name Baldemar Referring Provider Speciality Internal M edicine Referred Provider Renan Oliveira Referred Provider Specialty Neurology General Notes Yanni Cline 09:37:25 AM EST > info faxed , Yanni Cline 11/14/2023 11:08:43 AM EST > info mailed to patient , TammieMartadillonMckenzie Whatley 02/27/2024 04:19:09 PM EDT > OFFICE NOTES RECD Referral Priority Routine Referral Appointment Date 12/21/2023 Reason SCREEN FOR COLON CAN CER Diagnosis [...] Referral Priority Routine Referral Appointment Date 07/10/2024 Reason SHORTNESS OF BREATH ON EXERTION Diagnosis 1 Shortness of breath on exertion (R06.02) Referral Organization Tonny Mcdermott MD Referring Provider First Name Tonny Referring Provider Last Name Baldemar Referring Provider Speciality Internal M edicine Referred Provider MILKA PROCTOR Referred Provider Specialty Pulmonary Di seases General Notes Mckenzie Wilkins 09/24/2024 03:59:50 PM EDT > THE REFERRAL HAS BEEN FAXED TO [facility] Referral Priority Routine Referral Appointment Date 11/12/2024 MEDICATIONS Medication SIG (Take, Route, Frequency, Duration) Notes Start Date End Date Status Albuterol Sulfate HFA 108 (90 Base) MCG/ACT 1 puff as needed Inhalation every 4 hrs for 30 days 08/23/2022 Not-Taking Clobetasol Propionate 0.05 % 1 application to affected area Externally Twice a day for 10 days 06/21/2014 Not-Taking Aspir-Low 81 MG 1 tablet Orally Once a day for 30 day(s) Active Ibuprofen 800 MG TAKE 1 TABLET BY CONTRERAS EVERY 8 HOURS WITH FOOD OR MILK NEEDED for 30 Active Metoprolol Tartrate 25 MG 1 tablet with food Orally Twice a day Active Atorvastatin Calcium 40 MG TAKE 1 TABLET BY MOUTH EVERY DAY for 90 Active Lisinopril-hydroCHLOROthi azide 10-12.5 MG TAKE 1 TABLET BY MOUTH EVERY DAY for 90 Active IMMUNIZATIONS Vaccine Route Administration Date Status Comme nts DECLINED, FLU Unknown 09/24/2013 Administered Tetanus Unknown 08/30/2016 Administered WAS CUT AT WORK. Shingrix IM Intramuscular 11/20/2019 Administered pt was given the vaccine at [facility] in [place]. Shingrix IM Intramuscular 01/28/2020 Administered pt was given the vaccine and at the [facility]. SARS-COV-2 Pfizer Unknown 03/10/2021 Administered SARS-COV-2 Pfizer Unknown 03/31/2021 Administered DECLINED, FLU Unknown 10/10/2014 Refused Flu Vaccine Unknown 10/20/2015 Refused PPSV23 (Pnemovax) Unknown 10/20/2015 Refused Fluarix Quadrivalent Unknown 12/21/2016 Refused Fluarix Quadrivalent Unknown 09/27/2017 Refused Fluarix Quadrivalent Unknown 01/24/2020 Refused Fluarix Quadrivalent Unknown 01/26/2021 Refused Fluarix Quadrivalent Unknown 08/18/2021 Refused Fluarix Quadrivalent Unknown 08/23/2022 Refused Fluarix Quadrivalent Unknown 08/18/2023 Refused SOCIAL HISTORY Tobacco Use: Social History [...] W/U Status Risk SNOMED Code Notes Problem Prostatism (N40.0) Active confirmed 114 49405 Problem Tubular adenoma (D36.9) Active confirmed 022903664 Problem Hyperlipidemia, unspecified (E78.5) Active confirmed 35704355 Problem Hypercalcemia (E83.52) Active confirmed Hypercalcemia (56120319) Problem Sleep related hypoventilation in conditions classified elsewhere (G47.36) Active confirmed 247587601 Problem Atherosclerosis of aorta (I70.0) Active confirmed 02411859 Problem Gynecomastia (N62) Active confirmed 475 4008 Problem Essential hypertension (I10) Active confirmed 35981311 Problem Prediabetes (R73.09) Active confirmed 4688550 Problem Erectile dysfunction, unspecified erectile dysfunction type (N52.9) Active confirmed 124553445 Problem Cervical disc disease (M50.90) Active confirmed 424094832 Problem Mild aortic stenosis (I35.0) Active confirmed 07383615 Problem Nonrheumatic aortic valve insufficiency (I35.1) Active confirmed 492085592 Problem Severe aortic stenosis (I35.0) Active confirmed 132270041 Problem Moderate aortic stenosis (I35.0) Active confirmed 923657476 Problem Peyronie's disease (N48.6) Active confirmed Peyronie's disease (9153380) Problem H/O aortic valve replacement (Z95.2) Active confirmed History of hear t valve repair with prosthesis ([id number] ) Problem Muscle fasciculation (R25.3) Active confirmed 23912146 VITAL SIGNS Blood pressure diastolic 74 mm Hg 09/24/2024 Height 70 in 09/24/2024 Blood pressure systolic 152 mm Hg 09/24/2024 Weight 250 lbs 09/24/2024 BMI 35.87 kg/m2 09/24/2024 Encounters Encounter Location Date Provider Diagnosis Tonny Mdcermott MD [address] [place] [id number] 02/27/2024 Tonny Mcdermott H/O aortic valve replacement Z95.2 ; Annual physical exam Z00.00 ; Mild anemia D64.9 ; Prediabetes R73.09 ; Hyperlipidemia, unspecified E78.5 ; Essential hypertension I10 ; Colon cancer screening Z12.11 and Depression screening Z13.31 Tonny Mcdermott MD [address] [place] [address] Drive [address] [place] [id number] 02/20/2024 Tonny Mcdermott Blood tests for routine general physical examination Z00.00 ; Hyperlipidemia, unspecified E78.5 ; Prediabetes R73.09 ; Essential hypertension I10 ; Prostatism N40.0 and Hypercalcemia E83.52 Tonny Mcdermott MD [address] [place] [address] [id number] 08/31/2024 Tonny Mcdermott Hyperlipidemia, unspecified E78.5 and Prediabetes R73.09 Tonny Mcdermott MD [address] [place] [address] [address] [place] [id number] 09/24/2024 Tonny Mcdermott H/O aortic valve replacement Z95.2 ; Cervical disc disease M50.90 and Shortness of breath on exertion R06.02 Tonny Mcdermott MD [address] [place] [address] [id number] 01/12/2024 Tonny Mcdermott ASSESSMENTS Encounter Date Diagnosis Assessment Notes Treatment Notes Treatment Clinical Notes 02/27/2024 Annual physical exam (ICD-10 - Z00.00) labs reviewed and discused with patient 02/27/2024 H/O aortic valve replacement (ICD-10 - Z95.2) needs appt with dr mensah/ REFERRAL FOR DR OVERTON MADE AND WILL BE FAXED WHEN LOCKED, ED WILL BE CONTACTED WITH APPT 02/20/2024 Blood tests for routine general physical examination (ICD-10 - Z00.00) 08/31/2024 Hyperlipidemia, unspecified (ICD-10 - E78.5) 09/24/2024 Cervical disc disease (ICD-10 - M50.90) seems that he may be having trouble with disc still 09/24/2024 H/O aortic valve replacement (ICD-10 - Z95.2) need the results of echo done by dr kam this month/ REQUEST MADE TO HIM @ [facility] 02/27/2024 Mild anemia (ICD-10 - D64.9) THE ORDER WAS PRINTED AND GIVEN TO ED HE WILL GOT TO [facility], pending labs, will continue to monitor 02/20/2024 Hyperlipidemia, unspecified (ICD-10 - E78.5) 08/31/2024 Prediabetes (ICD-10 - R73.09) 09/24/2024 Shortness of breath on exertion (ICD-10 - R06.02) at times gets wheezing and tried inhaler with no improvemnt/ referrlal to [facility] 02/27/2024 Prediabetes (ICD-10 - R73.09) stable, no kurt for medication at this time 02/20/2024 Prediabetes (ICD-10 - R73.09) 02/27/2024 Hyperlipidemia, unspecified (ICD-10 - E78.5) stable, will continue current regiment 02/20/2024 Essential hypertension (ICD-10 - I10) 02/27/2024 Essential hypertension (ICD-10 - I10) stable, will continue current regiment 02/20/2024 Prostatism (ICD-10 - N40.0) 02/27/2024 Colon cancer screening (ICD-10 - Z12.11) guaiac negative 02/20/2024 Hypercalcemia (ICD-10 - E83.52) 02/27/2024 Depression screening (ICD-10 - Z13.31) negative scren PLAN OF TREATMENT Pending Test Test Name Order Date Electrocardiogram (EKG) 10/20/2015 Electrocardiogram (EKG) 01/18/2019 Electrocardiogram (EKG) 01/24/2020 MRI CERVICAL SPINE NO CONTRAST 3 MRI CERVICAL SPINE NO CONTRAST 3 XR CHEST 2 VIEW PA & LAT 10/18/2022 Liver Panel 08/31/2024 Glucose Fasting 08/31/2024 Lipid Panel with Reflex 08/31/2024 Hemoglobin A1c 08/31/2024 Next Appt Details Provider Name:Tonny Wright ier, 11/29/2024 03:30:00 PM, [address] [place] [address], [address] [facility], [place], [place], [phone], Provider Name:Tonny Wright ier, 02/25/2025 07:45:00 AM, [address] [place] [address], [address], [place], [place], [phone], Provider Name:Tonny Wright ier, 03/04/2025 04:00:00 PM, [address] [place] [address], [address], [place], [place], [phone], Insurance Providers Payer Name Payer Address Payer Phone Subscriber Number Group Number Insured Name Patient Relationship to Insured Coverage Start Date Coverage End Date TRISTAN JONES [address] [place] [phone] [id number] Fredy Peterson Self - patient is the insured MEDICAL (GENERAL) HISTORY Medical History History ICD Code Colonoscopy in 2005; repeat 10 years; colonoscopy 08/22/[address] Mensah - repeat 08/17/22 NEEDS ECHO 2014. had echo in 2013 was no rmal needs ultrasound aorta 06/13; done 02/02/19 - repeat 2 years repeat showed no aneurysm Surgical History Surgery Date(Month/Year) Laparoscopic cholecystectomy by Dr. Oliva 04/2014
[2024-11-09 06:42] VITALS: BMI 33.3
[2024-11-09] MEDS: Lactated Ringers 1,000 ML 100 ML IVCONT (06:57)
[2024-11-09 07:07] VITALS: BP 136/70; PULSE 64; RESP 18; TEMP 36.7; O2SAT 97
[2024-11-09 08:26] VITALS: BP 153/78; PULSE 55; RESP 16; TEMP 36.4; O2SAT 98
--- NOTE | 2024-11-09 08:28 | PM.OP ---
Brief Operative Note Date of Service: 11/09/24 Pre-op diagnosis: Screening Post-op diagnosis: other (Polyp) Procedure: Colonoscopy to the cecum and TI with bx/removal of polyp Surgeon: Radames Molina MD Anesthesia: MAC Was an Tele[employer] Network Planner used for this Procedure?: No Estimated blood loss (mL): 2.0 Pathology: other (A. Polyp at 50cm) Condition: stable Disposition: PACU
[2024-11-09 08:41] VITALS: BP 135/82; PULSE 51; RESP 16; TEMP 36.4; O2SAT 98
--- NOTE | 2024-11-09 08:50 | OP_ITS ---
DATE OF SERVICE: 11/09/2024 SURGEON: Radames Molina MD INDICATIONS: The patient presents for evaluation of colorectal cancer screening and personal history of tubular adenoma of the colon. Full consent has been obtained from him for this, including risks of bleeding and perforation. PREOPERATIVE DIAGNOSIS: POSTOPERATIVE DIAGNOSIS: PROCEDURE PERFORMED: Colonoscopy to the cecum and terminal ileum with biopsy and removal of polyp. ESTIMATED BLOOD LOSS: COMPLICATIONS: ANESTHESIA: Medication used, monitored anesthesia care. ASSISTANTS: SPECIMENS: PREOPERATIVE DIAGNOSES: Personal history of tubular adenoma of the colon and colorectal cancer screening. POSTOPERATIVE DIAGNOSES: Personal history of tubular adenoma of the colon and colorectal cancer screening, small colon polyp, diverticulosis, and internal hemorrhoids. DESCRIPTION OF PROCEDURE: The patient was placed in the left lateral decubitus position. The digital rectal exam revealed a tight anal sphincter which limited the exam, but there were no abnormalities as best as I could tell. The Olympus video pediatric colonoscope was entered into the rectum and advanced easily to the cecum. Once in the cecum, I did identify normal-appearing cecal pouch with appendiceal orifice and a normal-appearing ileocecal valve. The terminal ileum was cannulated and appeared normal. The scope was withdrawn back in the colon. The entire cecum and ileocecal valve appeared normal. The scope was slowly withdrawn assessing all mucosal surfaces carefully. Preparation was excellent. At 50 cm, there was a flat 3 mm polyp, which was biopsied and completely removed with cold biopsy forceps. I did not visualize any other polyps, colitis, nor angiodysplasia. There was a mild amount of sigmoid diverticulosis. In the rectum, scope was retroflexed visualizing internal hemorrhoids, but no other pathology. The rectal mucosa appeared normal. The scope was straightened and withdrawn from the patient. He tolerated the procedure well and was returned to the recovery area in stable condition. IMPRESSION: 1. Small colon polyp. 2. Diverticulosis. 3. Internal hemorrhoids. PLAN: The results of biopsy will be checked. I would recommend a repeat colonoscopy in 5 years for further screening. He will otherwise see me on a p.r.n. basis. MD FAY Daniel/SATHISH / [phone]
== END 2024-11-09 09:21 | disposition home or self-care (01) ==
PROVIDERS: PCP Internal Medicine; Visit Provider Internal Medicine
PROC: 0DJD8ZZ Inspection of Lower Intestinal Tract, Via Natural or Artificial Opening Endoscopic (ICD-10-PCS; CPT 45378; principal; 2024-11-09 07:30)
DX: Z12.11 Encounter for screening for malignant neoplasm of colon (principal); Z86.0101 Personal history of adenomatous and serrated colon polyps; D12.5 Benign neoplasm of sigmoid colon; K57.30 Diverticulosis of large intestine without perforation or abscess without bleeding; K64.8 Other hemorrhoids; I10 Essential (primary) hypertension; E78.5 Hyperlipidemia, unspecified; N48.6 Induration penis plastica; I35.0 Nonrheumatic aortic (valve) stenosis; Z95.4 Presence of other heart-valve replacement; G47.33 Obstructive sleep apnea (adult) (pediatric); Z79.82 Long term (current) use of aspirin; Z79.1 Long term (current) use of non-steroidal anti-inflammatories (NSAID); Z79.899 Other long term (current) drug therapy; Z90.49 Acquired absence of other specified parts of digestive tract; Z87.891 Personal history of nicotine dependence
CPT/HCPCS: 45380; 88305; J2704

== ENCOUNTER 2024-11-12 14:38 | Outpatient (REF) | payer OTHER, SELFPAY ==
--- OUTSIDE RECORDS SUMMARY | 2024-11-12 15:27 | XMS_ITS ---
Author Organization [facility] Address [address] [place] [address] Care Team Providers Care Data Management Specialist Name Role Phone Tonny Mcdermott MD Primary Care Provider Radames Sal [phone] ALLERGIES Allergen (clinical drug ingredient) Drug/Non Drug [...] 07/10/2024 Encounters Encounter Location Date Provider Diagnosis [facility] [address] [place] [address] 07/10/2024 Radames Molina Encounter for screen ing for malignant neoplasm of colon Z12.11 ; Preprocedural examination Z01.818 ; History of adenomatous polyp of colon Z86.010 and correction (current) use of aspirin Z79.82 ASSESSMENTS Encounter [...] polyp of colon (ICD-10 - Z86.010) 07/10/2024 correction (current) use of aspirin (ICD-10 - Z79.82) [...] Next Appt Details Follow Up: prn, Reason: Progress Notes * Examination Category Sub-Category Detail [...]
--- OUTSIDE RECORDS SUMMARY | 2024-11-12 15:27 | XMS_ITS ---
Author Organization [facility] Address [address] [place] [address] Care Team Providers Care Dentist Name Role Phone Tonny Mcdermott MD Primary Care Provider UnaRadames Borrego [phone] REASON FOR VISIT screening,hx polyps Encounters Encounter Location Date Provider Diagnosis [facility] [address] [place] [address] [place] [phone] 11/09/2024 Radames Molina PLAN OF TREATMENT No Information
--- OUTSIDE RECORDS SUMMARY | 2024-11-12 15:27 | XMS_ITS | Patient Health Record ---
Author Organization [facility] Address [address] [place] [address] Care Team Providers Care Heel Trimmer Name Role Phone Tonny Mcdermott MD Primary Care Provider Radames Sal Unavailable [phone] ALLERGIES Allergen (clinical drug ingredient) Drug/Non Drug [...] malignant neoplasm of colon (Z12.11) Active confirmed [id number] Problem Preprocedural examination (Z01.818) Active confirmed [id number] Problem History of adenomatous polyp of colon (Z86.010) Active confirmed History of adenomatous polyp of colon ([id number]) Problem snf (current) use of aspirin (Z79.82) Active confirmed Long-term current use of antiplatelet drug ([id number] 1) VITAL SIGNS Blood pressure diastolic 00 mm Hg 07/10/2024 Height 71 in 07/10/2024 Blood pressure systolic 00 mm Hg 07/10/2024 Weight 249 lbs 07/10/2024 BMI 34.72 kg/m2 07/10/2024 Encounters Encounter Location Date Provider Diagnosis [facility] [address] [place], [place] [id number] 11/09/2024 Radames Molina [facility] [address] [place] [address] 07/10/2024 Radames Molina Encounter for screening for malignant neoplasm of colon Z12.11 ; Preprocedural examination Z01.818 ; History of adenomatous polyp of colon Z86.010 and snf (current) use of aspirin Z79.82 ASSESSMENTS Encounter [...] polyp of colon (ICD-10 - Z86.010) 07/10/2024 terminal system operator (current) use of aspirin (ICD-10 - Z79.82) PLAN OF TREATMENT Future Test Test Name Order Date COLONOSCOPY 04/22/2017 COLONOSCOPY 11/10/2022 COLONOSCOPY 07/10/2024 Insurance Providers Payer Name Payer Address Payer Phone Subscriber Number Group Number Insured Name Patient Relationship to Insured Coverage Start Date Coverage End Date [employer] PPO [address] [place], [place] [phone] [id number] YONATAN ORELLANA Self - patient is the insured MEDICAL (GENERAL) HISTORY Medical History History ICD Code Colonoscopy 10-6-2005 for ev aluation of Heme + stool---negative except for internal hemorrhoids Hyperlipidemia Hypertension History of pancreatitis in 2003 in relat ion to elevated triglycerides Denies MD,DM,CVA,Lung disease,renal dise ase History of sleep apnea--used CPAP--resolved with weight loss, but has gained 30 # bsck Peyronie's disease Colonoscopy 07/2017 with 3 tubular adenom as removed Cardiac catheterization-normal coronarie s but moderate aortic stenosis Surgical History Surgery Date(Month/Year) Cholecystectomy Aortic valve replacement--bovine valve 0 05/03/2023 Neck surgery scheduled for July of [address] Oliveira
--- OUTSIDE RECORDS SUMMARY | 2024-11-12 15:27 | XMS_ITS ---
Author Organization Tonny Mcdermott MD Address [address] [place], [place] [phone] Care Team Providers Care Digital Marketing Associate Name Role Phone Baldemar Tonny Primary Care Provider [phone] ALLERGIES Allergen (clinical drug ingredient) Drug/Non Drug [...] > THE REFERRAL HAS BEEN FAXED TO [facility] Referral Priority Routine Referral Appointment Date [...] Date Provider Diagnosis Tonny Mcdermott MD [address] [place], [place] [phone] 09/24/2024 Tonny Mcdermott H/O aortic valve replacement Z95.2 ; Cervical disc disease M50.90 and Shortness of breath on exertion R06.02 ASSESSMENTS Encounter Date Diagnosis Assessment Notes Treatment Notes Treatment Clinical Notes 09/24/2024 H/O aortic valve replacement (ICD-10 - Z95.2) need the results of echo done by dr kam this month/ REQUEST MADE TO HIM @ [facility] 09/24/2024 Cervical disc disease (ICD-10 - M50.90) seems that he may be having trouble with disc still 09/24/2024 Shortness of breath on exertion (ICD-10 - R06.02) at times gets wheezing and tried inhaler with no improvemnt/ referrlal to [facility] pulmonary PLAN OF TREATMENT Treatment Notes Assessment Notes H/O aortic valve replacement need the re sults of echo done by dr kam this month/ REQUEST MADE TO HIM @ [facility] Cervical disc disease seems that he may be having trouble with disc still Shortness of breath on exertion at times gets wheezing and tried inhaler with no improvemnt/ referrlal to [facility] pulmonary Referrals Referral Date Details 11/12/2024 11/12/2024, SHORTNES S OF BREATH ON EXERTION, MILKA PROCTOR Next Appt Details Follow Up: 2 Months, Reason: Provider Name:Tonny ashby, 11/29/2024 03:30:00 PM, [address] [place] [address], [address], [place], [phone], Provider Name:Tonny ashby, 02/25/2025 07:45:00 AM, [address] [place] [address], [address], [place], [place], [phone], Provider Name:Tonny ashby, 03/04/2025 04:00:00 PM, [address] [place] [address], [address], [place], [place], [phone], Progress Notes * Examination Category Sub-Category Detail [...]
--- OUTSIDE RECORDS SUMMARY | 2024-11-12 15:28 | XMS_ITS ---
Author Organization Tonny Mcdermott MD Address [address] [place], [place] [phone] Care Team Providers Care Range Conservationist Name Role Phone BaldemarTonny Primary Care Provider ALLERGIES Allergen (clinical drug [...] Date Provider Diagnosis Tonny Mcdermott MD [address] [place], [place] [phone] 02/27/2024 Tonny Mcdermott H/O aortic valve replacement [...] HE WILL GOT TO [facility] , pending labs, will continue to monitor [...] Reason: Provider Name:Tonny ashby, 11/29/2024 03:30:00 PM, [address] [place] [address], [address], [place], [place], [phone], Provider Name:Tonny Wright isma, 02/25/2025 07:45:00 AM, [address], [address], [place], [phone], Provider Name:Tonny Wright isma, 03/04/2025 04:00:00 PM, [address], [address], [place], [phone], Progress Notes * Examination Category Sub-Category Detail [...]
--- OUTSIDE RECORDS SUMMARY | 2024-11-12 15:28 | XMS_ITS | Patient Health Record ---
Author Organization Tonny Mcdermott MD Address [address] [place], [place] [id number] Care Team Providers Care Senior Linux Unix Engineer Name Role Phone Tonny Mcdermott Primary Care Provider [phone] ALLERGIES Allergen (clinical drug ingredient) Drug/Non Drug Allergy documented on EMR Reaction Allergy Type Onset Date Status penicillin (uncoded) rash Allergy Active RESULTS Component Value Reference Range Notes Complete Blood Count Auto Di ff Reviewed date:02/19/2024 04:56:50 PM Interpretation: Performing Lab:[facility], [address] [place] [phone] Notes/Report: White Blood Count 5.5 4.8-10.8 X10*3/uL [...] NRBC Abs Auto 0.000 0.0-0.012 X10*3/uL Comprehensive [place]. Panel Fa st Reviewed date:02/19/2024 04:54:29 PM Interpretation: Performing Lab:[facility], [address] [place] [phone] Notes/Report: Sodium 138 135-145 mmol/L Potassium 4.2 3.3-5.1 mmol/L Chloride 104 96-108 mmol/L Carbon Dioxide 27 22-29 mmol/L Anion Gap 11 12-20 Blood Urea Nitrogen 17 9-16 mg/dL Creatinine 0.82 0.5-1.4 mg/dL Estimated Glomerular Filt Rate > 60 NOTE: For -Bermudian individuals, multiply the result by 1.210. Chronic [...] Panel Reviewed date:02/19/2024 04:55:13 PM Interpretation: Performing Lab:[address] [phone] Notes/Report: Triglycerides 34 <150 mg/dL Desirable Triglyceride: [...] (Free>4and<10) Reviewed date:02/19/2024 04:54:06 PM Interpretation: Performing Lab:[facility], [address] [place] [phone] Notes/Report: PSA,Total (Free>4and<10) 0.55 0.00-4.00 ng/mL A [...] Random Reviewed date:02/19/2024 04:56:15 PM Interpretation: Performing Lab:[facility], [address] [place] [phone] Notes/Report: Creatinine Urine 102.47 Microalbumin Urine 317.0 Microalbum/Creatinine Ratio Ur 309.3 <30 ug/mg cr Albumin/Creatinine Ratio Reference Ranges: Normal: < 30 ug/mg creatinine Microalbuminuria: 30 - 300 ug/mg creatinine Clinical Albuminuria: > 300 ug/mg creatinine Hemoglobin A1c Reviewed date:02/19/2024 04:55:24 PM Interpretation: Performing Lab:[facility], [address] [place] [phone] Notes/Report: Hemoglobin A1c % 5.4 <6.0 % [...] average glucose, using the formula of the S3H-Aduvxvb Average Glucose study (ADAG), Diabetes Care, Vol.31,#8, Jun. 2007 UA CC w/rflx Micro + Cult Reviewed date:02/19/2024 04:57:22 PM Interpretation: Performing Lab:[facility], [address] [place] [phone] Notes/Report: Urine, Clean Catch Color Urine Yellow Appearance Urine Clear PH 6.0 5.0-9.0 Glucose Urine UA Negative Negative mg/dL Urine Blood Negative Negative Specific Alpine - Urine 1.020 1.005-1.025 Urine Protein 30 (1+) Neg-Trace mg/dL Urine Ketones Negative Negative mg/dL Nitrite Urine Negative Negative Leukocyte Esterase Urine Negative Negative UA ClnCatch+Micro w/rflx Cul t Reviewed date:02/19/2024 04:58:14 PM Interpretation: Performing Lab:[facility], [address] [place] [phone] Notes/Report: Urine, Clean Catch Color Urine Yellow Appearance Urine Clear PH 6.0 5.0-9.0 Glucose Urine UA Negative Negative mg/dL Urine Blood Negative Negative Specific Alpine - Urine 1.020 1.005-1.025 Urine Protein 30 [...] Diff Reviewed date:03/01/2024 04:27:02 PM Interpretation: Performing Lab:[address] [phone] Notes/Report: White Blood Count 5.6 4.8-10.8 X10*3/uL [...] INR Reviewed date:02/29/2024 02:21:44 PM Interpretation: Performing Lab:[address] [phone] Notes/Report: Prothrombin Time 11.4 11.1-13.3 SEC [employer] [...] Panel Reviewed date:03/01/2024 04:25:10 PM Interpretation: Performing Lab:[address] [phone] Notes/Report: Sodium 140 135-145 mmol/L Potassium 3.9 3.3-5.1 mmol/L Chloride 106 96-108 mmol/L Carbon Dioxide 27 22-29 mmol/L Anion Gap 11 12-20 Blood Urea Nitrogen 19 9-16 mg/dL Creatinine 0.85 0.5-1.4 mg/dL Estimated Glomerular Filt Rate > 60 NOTE: For -Bermudian individuals, multiply the result by 1.210. Chronic Kidney Disease: Estimated GFR < 60 mL/min/1.73m2 Severe Kidney Disease: Estimated GFR < 15 mL/min/1.73m2 Glucose Random 124 60-115 mg/dL Calcium 9.4 8.4-10.2 mg/dL Liver Panel Reviewed date:08/29/2024 03:57:46 PM Interpretation: Performing Lab:[address] [phone] Notes/Report: Bilirubin Total 0.9 0.0-1.0 mg/dL Bilirubin Direct 0.3 0.0-0.5 mg/dL Aspartate Amino Transferase 29 5-37 U/L Alanine Aminotransferase 21 0-40 U/L Total Protein 6.7 6.5-8.0 g/dL Albumin Level 4.0 3.5-5.0 g/dL Alkaline Phosphatase 86 39-117 U/L Glucose Fasting Reviewed date:08/29/2024 03:48:07 PM Interpretation: Performing Lab:[address] [address] Notes/Report: Glucose Fasting 126 60-99 mg/dL A fasting glucose of 126 mg/dl or greater on more than one occasion is considered diagnostic of diabetes. Lipid Panel with Reflex Reviewed date:08/30/2024 12:22:42 PM Interpretation: Performing Lab:[facility] [address], [place] [address] Notes/Report: Triglycerides 96 <150 mg/dL Desirable Triglyceride: [...] A1c Reviewed date:08/29/2024 03:51:33 PM Interpretation: Performing Lab:[facility], [address] [place] [phone] Notes/Report: Hemoglobin A1c % 5.7 <6.0 % [...] average glucose, using the formula of the O9L-Ipebazv Average Glucose study (ADAG), Diabetes Care, Vol.31,#8, Jun. 2007 REASON FOR REFERRAL Reason SCREEN FOR COLON [...] > THE REFERRAL HAS BEEN FA[place] [facility] Referral Priority Routine [...] Administered pt was given the vaccine at [facility] in [place]. Shingrix IM Intramuscular 01/28/2020 Administered pt was given the vaccine and at the [facility] clinic. SARS-COV-2 Pfizer Unknown 03/10/2021 Administered SARS-COV-2 Pfizer [...] Notes Problem Prostatism (N40.0) Active confirmed 114 09918 Problem Tubular adenoma (D36.9) Active confirmed 519885767 Problem Hyperlipidemia, unspecified (E78.5) Active confirmed 09420033 Problem Hypercalcemia (E83.52) Active confirmed Hypercalcemia (54210086) Problem Sleep related hypoventilation in conditions classified elsewhere (G47.36) Active confirmed 298150129 Problem Atherosclerosis of aorta (I70.0) Active confirmed 95823975 Problem Gynecomastia (N62) Active confirmed 475 4008 Problem Essential hypertension (I10) Active confirmed 03933942 Problem Prediabetes (R73.09) Active confirmed 0475931 Problem Erectile dysfunction, unspecified erectile dysfunction type (N52.9) Active confirmed 039798330 Problem Cervical disc disease (M50.90) Active confirmed 644019517 Problem Mild aortic stenosis (I35.0) Active confirmed 87434322 Problem Nonrheumatic aortic valve insufficiency (I35.1) Active confirmed 360901843 Problem Severe aortic stenosis (I35.0) Active confirmed 111704162 Problem Moderate aortic stenosis (I35.0) Active confirmed 007704045 Problem Peyronie's disease (N48.6) Active confirmed Peyronie's disease (8888833) Problem H/O aortic valve replacement (Z95.2) Active confirmed History of hear t valve repair with prosthesis ([id number] ) Problem Muscle fasciculation (R25.3) Active confirmed 09806920 VITAL SIGNS Blood pressure diastolic 74 mm Hg 09/24/2024 Height 70 in 09/24/2024 Blood pressure systolic 152 mm Hg 09/24/2024 Weight 250 lbs 09/24/2024 BMI 35.87 kg/m2 09/24/2024 Encounters Encounter Location Date Provider Diagnosis Tonny Mcdermott MD [address] [place] [id number] 02/27/2024 Tonny Mcdermott H/O aortic valve replacement Z95.2 ; Annual physical exam Z00.00 ; Mild anemia D64.9 ; Prediabetes R73.09 ; Hyperlipidemia, unspecified E78.5 ; Essential hypertension I10 ; Colon cancer screening Z12.11 and Depression screening Z13.31 Tonny Mcdermott MD [address] [place] [id number] 02/20/2024 Tonny Mcdermott Blood tests for routine general physical examination Z00.00 ; Hyperlipidemia, unspecified E78.5 ; Prediabetes R73.09 ; Essential hypertension I10 ; Prostatism N40.0 and Hypercalcemia E83.52 Tonny Mcdermott MD [address] [place] [id number] 08/31/2024 Tonny Mcdermott Hyperlipidemia, unspecified E78.5 and Prediabetes R73.09 Tonny Mcdermott MD [address] [place] [address] Drive [address] [place] [id number] 09/24/2024 Tonny Mcdermott H/O aortic valve replacement Z95.2 ; Cervical disc disease M50.90 and Shortness of breath on exertion R06.02 Tonny Mcdermott MD [address] [place] [address] [id number] 01/12/2024 Tonny Mcdermott ASSESSMENTS Encounter Date Diagnosis [...] this month/ RE[place] M[place] [facility] [place] Mild anemia (ICD-10 - D64.9) THE ORDER WAS PRINTED AND GIVEN TO ED HE WILL GOT TO [facility], pending labs, will continue to monitor 02/20/2024 Hyperlipidemia, unspecified (ICD-10 - E78.5) 08/31/2024 Prediabetes (ICD-10 - R73.09) 09/24/2024 Shortness of breath on exertion (ICD-10 - R06.02) at times gets wheezing and tried inhaler with no improvemnt/ referrlal [place] [facility] 02/27/2024 Prediabetes (ICD-10 - R73.09) stable, [...] A1c 08/31/2024 Next Appt Details Provider Name:Tonny ahsby, 11/29/2024 03:30:00 PM, [address], [address], [facility] [place], [phone], Provider Name:Tonny Wright ier, 02/25/2025 07:45:00 AM, [address], [address], [place], [phone], Provider Name:Tonny Wright ier, 03/04/2025 04:00:00 PM, [address], [address], [place], [phone], Insurance Providers Payer Name Payer Address Payer Phone Subscriber Number Group Number Insured Name Patient Relationship to Insured Coverage Start Date Coverage End Date [employer] [address] [place] [phone] [id number] Solorzano Self - patient is the insured MEDICAL [...]
--- OUTSIDE RECORDS SUMMARY | 2024-11-12 15:28 | XMS_ITS ---
Author Organization Tonny Mcdermott MD Address [address] [place] [id number] Care Team Providers Care Sand Cutting Machine Operator Name Role Phone Baldemar Tonny Primary Care Provider REASON FOR VISIT FASTING LIPIDS Encounters Encounter Location Date Provider Diagnosis Tonny Mcdermott MD [address] [facility] [address] [place] [id number] 08/31/2024 Tonny Mcdermott Hyperlipidemia, unspecified E78.5 and Prediabetes R73.09 ASSESSMENTS Encounter Date Diagnosis Assessment Notes Treatment Notes Treatment Clinical Notes 08/31/2024 Hyperlipidemia, unspecified (ICD-10 - E78.5) 08/31/2024 Prediabetes (ICD-10 - R73.09) PLAN OF TREATMENT Pending Test Test Name Order Date Liver Panel 08/31/2024 Glucose Fasting 08/31/2024 Lipid Panel with Reflex 08/31/2024 Hemoglobin A1c 08/31/2024 Next Appt Details Provider Name:Tonny ashby, 11/29/2024 03:30:00 PM, [address] [place] [address], [address], [place], [phone], Provider Name:Tonny ashby, 02/25/2025 07:45:00 AM, [address] [place] [address], [address], [place], [phone], Provider Name:Tonny ashby, 03/04/2025 04:00:00 PM, [address] [place] [address], [address], [place], [phone],
[2024-11-12 15:41] LABS: MANUAL DIFF FLAG NO
[2024-11-12 16:00] LABS: Basophils Absolute Auto 0.1 X10*3/uL (0.0-0.2); Basophils Percent Auto 0.9 % (0-2); Eosinophils Absolute Auto 0.4 X10*3/uL (0.0-0.4); Eosinophils Percent Auto 4.7 % (0-4); Hematocrit 39.2 % (42.0-52.0); Imm Gran Abs Auto 0.02 X10*3/uL (0.00-0.03); Imm Gran Pct Auto 0.3 % (0.0-0.4); Lymphocytes Absolute Auto 2.5 X10*3/uL (1.2-4.9); Mean Corpuscular HGB Conc 35.7 g/dl (31.0-36.0); Mean Corpuscular Hemoglobin 31.7 pg (27.0-33.0); Mean Corpuscular Volume 88.9 fL (80.0-98.0); Mean Platelet Volume 10.1 fL (9.4-12.4); Monocytes Absolute Auto 0.8 X10*3/uL (0.1-1.2); Monocytes Percent Auto 10.3 % (2-11); Neutrophils Absolute Auto 3.7 x10*3/uL (2.0-8.3); Neutrophils Percent Auto 49.8 % (45-73); Platelet Count 183 X10*3/uL (160-400); Red Blood Count 4.41 X10*6/uL (4.60-5.80); Red Cell Distribution Width 12.6 % (11.0-16.0); White Blood Count 7.5 X10*3/uL (4.8-10.8)
[2024-11-13 23:15] LABS: Class Alternaria alternata 0; Class Aspergillus fumigatus 0; Class Bermuda Grass 0; Class Birch 0; Class Cat Dander 0; Class Cladosporium herbarum 0; Class Cockroach 0/1; Class Common Ragweed 0; Class Cottonwood 0; Class Derm. pterony 0; Class Dermatophagoides farinae 0; Class Dog Dander 0; Class Elm 0; Class Maple Box Elder 0; Class Mountain Cedar 0; Class Mouse Urine Protein 0; Class Mugwort 0; Class Oak 0; Class Penicillium crysogenum 0; Class Rough Pigweed 0; Class Sheep Sorrel 0; Class Sycamore 0; Class Timothy Grass 0; Class Walnut Tree 0; Class White Ash 0; Class White Mulberry 0; D001 IgE D pteronyssinus <0.10 kU/L; D002 - IgE D farinae <0.10 kU/L; E001 - IgE Cat Dander <0.10 kU/L; E005 - IgE Dog Dander <0.10 kU/L; E072-IgE Mouse Urine <0.10 kU/L; G002 IgE Bermuda Grass <0.10 kU/L; G006 - IgE Timothy Grass <0.10 kU/L; I006-IgE Cockroach, German 0.16 kU/L; Immunoglobulin E 14 kU/L (<OR=114); M001 IgE Penicillium chrysogen <0.10 kU/L; M002 - IgE Cladosporium herbar <0.10 kU/L; M003 - IgE Aspergillus fumigat <0.10 kU/L; M006 - IgE Alternaria alternat <0.10 kU/L; T001 IgE Maple/Box Elder <0.10 kU/L; T003 IgE Common Silver Birch <0.10 kU/L; T006 - IgE Cedar, Mountain <0.10 kU/L; T007 - IgE Oak, White <0.10 kU/L; T008 IgE Elm, American <0.10 kU/L; T010 - IgE Walnut <0.10 kU/L; T011 - IgE Maple Leaf Sycamore <0.10 kU/L; T014 - IgE Cottonwood <0.10 kU/L; T015 - IgE Ash, White <0.10 kU/L; T070 - IgE White Mulberry <0.10 kU/L; W001 - IgE Ragweed, Short <0.10 kU/L; W006 - IgE Mugwort <0.10 kU/L; W014 IgE Pigweed, Common <0.10 kU/L; W018 IgE Sheep Sorrel <0.10 kU/L
== END 2024-11-12 14:39 | disposition home or self-care (01) ==
LOC: HO.LAB 14:38
PROVIDERS: PCP Internal Medicine; Referring Provider Internal Medicine; Visit Provider Nurse Practitioner Family
DX: Z91.09 Other allergy status, other than to drugs and biological substances (principal)
CPT/HCPCS: 36415; 82785; 85025; 86003

== ENCOUNTER 2024-11-12 14:38 | Outpatient (AMB) | payer OTHER, SELFPAY ==
--- NOTE | 2024-11-12 12:53 | MHC.OFFVIS ---
Vital Signs 11/12/24 14:50 Height 5 ft 11 in Weight 250 lb 3.594 oz BMI 34.9 BP 126/78 Blood Pressure Location Lt brachial Position Sitting Pulse 53 Pulse Source Pulse Oximeter Pulse Oximetry (%) 98 Oxygen Delivery Method Room Air Intake Visit Reasons: Shortness Of Breath Allergies Penicillins Allergy (Intermediate, Verified 11/12/24 14:55) RASH (in childhood) HPI HPI Shortness Of Breath: Details: Fredy is a pleasant 64 year old male, former smoker, quit 30 years ago with 15+ pyh, with underlying HTN, Thoracic AA, aortic stenosis s/p aortic valve replacement 2022. He was referred by PCP for pulmonary evaluation. He reports worsening dyspnea on exertion, wheezing, chest tightness and, occasional productive cough unsure of sputum color. He does note post nasal drip and seasonal allergies, denies recent allergy testing. Has a cat and dog at home. He denies prior h/o asthma. Prior PFT 2021 revealed moderate restrictive defect with significant response to bronchodilators. He previously trialed albuterol MDI with minimal effect however used very infrequently. He denies daily inhaler in the past. He has worked as a [employer]) x 25 yrs. Prior CTA revealed 4 mm pulmonary nodule RML 02/2023 with no further imaging. He does note h/o JENNIFER, unclear severity however could not tolerate CPAP and not interested in updated sleep study. Her eports brother, smoker, with likely COPD, otherwise no pertinent family history. [facility] Medical History (Updated 11/12/24 @ 15:25 by Alessandra Guajardo NP) Numbness Thoracic aortic aneurysm (TAA) Sciatica Cervical spinal stenosis Peyronie's disease Sleep apnea Pancreatitis (~2003) Hyperlipidemia HTN (hypertension) Aortic stenosis Surgical History History of carpal tunnel release Hx of neck surgery History of cardiac cath (~03/2023) Aortic valve replaced (~04/2023) H/O colonoscopy (~10/2022) S/P cardiac catheterization Hx laparoscopic cholecystectomy Family History Father No problems noted. 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 [employer] Const Denies chills, Denies excessive sweating, Denies fever(s), Denies headache(s) and Denies night sweats Eyes Denies dry eyes, Denies irritation and Denies itchy eyes ENT Reports Normal hearing present, Denies headache(s), Denies nasal congestion, Denies nasal discharge, Denies post nasal drip and Denies sore throat Card Denies chest pain, Denies chest pain at rest, Denies chest pain with activity, Denies claudication, Denies leg edema, Denies orthopnea and Denies paroxysmal nocturnal dyspnea Resp Denies chest congestion, Denies excessive phlegm production, Denies pain on inspiration, Denies pain with cough and Denies stridor Musc Denies myalgias Neuro Reports Normal hearing present and Denies headache(s) Endo Denies excessive sweating Vick/Lymph Denies lymphadenopathy Aller/Immun Denies itchy eyes and Denies seasonal rhinorrhea Physical Exam Vital Signs: Last Vital Signs Pulse 53 11/12/24 14:50 BP 126/78 11/12/24 14:50 Pulse Ox 98 11/12/24 14:50 Oxygen Delivery Method Room Air 11/12/24 14:50 BMI result Body Mass Index 34.9 Const General: cooperative, healthy appearing, comfortable, no acute distress, well developed and alert Nutritional Appearance: obese Orientation/consciousness: patient oriented x3 Limitations: no limitations HEENT Head: Yes normal to inspection, Yes normocephalic and Yes atraumatic Ears: hearing grossly normal bilaterally and external ears normal Eyes General: appearance normal, both eyes and all related structures Eyelids: Yes eyelids normal Sclerae: sclerae normal EOM: EOMs intact bilaterally Neck Neck: Yes normal visual inspection and Yes no lymphadenopathy Lymphatic: no lymphadenopathy noted Chest Chest palpation & inspection: normal inspection of the chest Resp Effort & Inspection: normal respiratory effort, able to speak in complete sentences, no audible wheezes, no cough, no stridor, not tachypneic, no tripod positioning and no use of accessory muscles Auscultation: clear to auscultation bilaterally Cardio Jugular venous distension: no JVD Rate: regular rate Rhythm: regular rhythm Skin Other: warm, dry General skin exam: no rashes or lesions noted Neuro General: patient oriented x3 Cranial nerves: Yes Normal hearing present Cognition (Neuro): normal cognition Gait exam (Neuro): Normal gait present Extrem General: Yes normal to inspection, Yes capillary refill normal, Yes no clubbing, cyanosis or edema and Yes no pedal edema Psych Appearance: grossly normal and well kempt Speech and movement: Normal speech and movement present and Clear speech present Affect: normal affect Attitude: cooperative Thought process: Normal thought process present Thought content: Normal thought content present Insight: Good insight present (Psych) Judgement: Good judgement present (Psych) Assessment & Plan Assessment & Plan (1) Asthma: Code(s): J45.909 - Unspecified asthma, uncomplicated Category: Medical (2) Environmental allergies: Code(s): Z91.09 - Other allergy status, other than to drugs and biological substances Category: Medical (3) SOB (shortness of breath) on exertion: Code(s): R06.02 - Shortness of breath Category: Medical (4) Pulmonary nodule: Code(s): R91.1 - Solitary pulmonary nodule Category: Medical Plan Prior PFT revealed moderate restrictive ventilatory defect with positive bronchodilator response. Decreased expiratory reserve volume suggests extrathoracic restriction likely secondary to abdominal obesity. Will start patient on Breo. Discussed importance of good oral hygiene to prevent thrush. Will also send for RAST to assess for an allergic component. Reviewed prior CTA 02/2023 which revealed 4 mm RML nodule, will repeat to assess stability. Discussed sending for updated sleep study as patient reports nonrestorative sleep, loud snoring, daytime fatigue however he declined at this time. All questions were answered and patient is in agreement of plan. Will follow up in 6-8 weeks or sooner if needed. Orders: Orders Immunoglobulin E Today Z91.09 - Other allergy status, other than to drugs and biological substances Complete Blood Count Auto Diff Today Z91.09 - Other allergy status, other than to drugs and biological substances Resp Allergy Profile Region I Today Z91.09 - Other allergy status, other than to drugs and biological substances Medications: New fluticasone furoate-vilanterol 100-25 mcg/dose (Breo Ellipta) 1 inh inhalation DAILY 180 ea 0RF Coding Level of Care Code New Pt Level 4 (93688) Diagnoses Asthma J45.909 Environmental allergies Z91.09 SOB (shortness of breath) on exertion R06.02 Pulmonary nodule R91.1
[2024-11-12 14:50] VITALS: BP 126/78; PULSE 53; O2SAT 98; BMI 34.9
== END 2024-11-12 15:22 | disposition home or self-care (01) ==
PROVIDERS: PCP Internal Medicine; Referring Provider Internal Medicine; Visit Provider Nurse Practitioner Family
DX: J45.909 Unspecified asthma, uncomplicated (principal); Z91.09 Other allergy status, other than to drugs and biological substances; R06.02 Shortness of breath; R91.1 Solitary pulmonary nodule
CPT/HCPCS: 99204

== ENCOUNTER 2024-12-31 15:40 | Outpatient (AMB) | payer OTHER, SELFPAY ==
--- NOTE | 2024-12-31 15:42 | MHC.OFFVIS ---
Vital Signs 12/31/24 15:43 Height 5 ft 11 in Weight 246 lb 14.684 oz BMI 34.4 BP 138/82 Blood Pressure Location Lt brachial Position Sitting Pulse 55 Pulse Source Pulse Oximeter Pulse Oximetry (%) 98 Oxygen Delivery Method Room Air Intake Visit Reasons: Shortness Of Breath Associate Theatre Professor Required: No Dye Line Operator: Dye Line Operator offered & declined Accompanied by: Self / Same As Patient Allergies Penicillins Allergy (Intermediate, Verified 12/31/24 15:51) RASH (in childhood) Medication List - Last Reconciled 12/31/24 by Risa Dee LPN aspirin (Ecotrin Low Strength) 81 mg PO DAILY atorvastatin 40 mg PO DAILY fluticasone furoate-vilanterol 100-25 mcg/dose (Breo Ellipta) 1 inh inhalation DAILY ibuprofen 800 mg PO TID lisinopril-hydrochlorothiazide 10-12.5 mg 1 tab PO DAILY metoprolol tartrate 25 mg PO BID HPI HPI Shortness Of Breath: Details: Fredy is a pleasant 64 year old male, former smoker, quit 30 years ago with 15+ pyh, with underlying asthma, HTN, Thoracic AA, aortic stenosis s/p aortic valve replacement 2022. He was initially referred by PCP for pulmonary evaluation for progressively worsening dyspnea on exertion, wheezing, and occasional productive cough unsure of sputum color. Prior PFT 2021 revealed moderate restrictive defect with significant response to bronchodilators. At the last visit, he was started on Breo 100 mcg with suboptimal effect, however noted less wheezing. He denies any visits to urgent care or hospitalizations related to respiratory distress since the last visit. Prior CTA revealed 4 mm pulmonary nodule RML 02/2023, CT chest ordered to assess stability. COUNTS INCLUDE 234 BEDS AT THE [facility] Medical History (Updated 11/12/24 @ 15:25 by Alessandra Guajardo NP) Numbness Thoracic aortic aneurysm (TAA) Sciatica Cervical spinal stenosis Peyronie's disease Sleep apnea Pancreatitis (~2003) Hyperlipidemia HTN (hypertension) Aortic stenosis Surgical History History of carpal tunnel release Hx of neck surgery History of cardiac cath (~03/2023) Aortic valve replaced (~04/2023) H/O colonoscopy (~10/2022) S/P cardiac catheterization Hx laparoscopic cholecystectomy Family History Father No problems noted. 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 Review of Systems Const Denies chills, Denies excessive sweating, Denies fever(s), Denies headache(s) and Denies night sweats Eyes Denies dry eyes, Denies irritation and Denies itchy eyes ENT Reports Normal hearing present, Denies headache(s), Denies nasal congestion, Denies nasal discharge, Reports post nasal drip and Denies sore throat Card Denies chest pain, Denies chest pain at rest, Denies chest pain with activity, Denies claudication, Reports leg edema, Reports dyspnea on exertion, Reports orthopnea and Denies paroxysmal nocturnal dyspnea Resp Denies chest congestion, Reports cough, Denies hemoptysis, Denies excessive phlegm production, Denies pain on inspiration, Denies pain with cough, Reports dyspnea on exertion, Denies stridor and Denies wheezing Musc Denies myalgias Neuro Reports Normal hearing present and Denies headache(s) Endo Denies excessive sweating Vick/Lymph Denies lymphadenopathy Aller/Immun Denies itchy eyes, Denies seasonal rhinorrhea and Denies wheezing Physical Exam Vital Signs: Last Vital Signs Pulse 55 12/31/24 15:43 BP 138/82 12/31/24 15:43 Pulse Ox 98 12/31/24 15:43 Oxygen Delivery Method Room Air 12/31/24 15:43 BMI result Body Mass Index 34.4 Const General: cooperative, healthy appearing, comfortable, no acute distress, well developed and alert Nutritional Appearance: obese Orientation/consciousness: patient oriented x3 Limitations: no limitations HEENT Head: Yes normal to inspection, Yes normocephalic and Yes atraumatic Ears: hearing grossly normal bilaterally and external ears normal Eyes General: appearance normal, both eyes and all related structures Eyelids: Yes eyelids normal Sclerae: sclerae normal EOM: EOMs intact bilaterally Neck Neck: Yes normal visual inspection and Yes no lymphadenopathy Lymphatic: no lymphadenopathy noted Chest Chest palpation & inspection: normal inspection of the chest Resp Effort & Inspection: normal respiratory effort, able to speak in complete sentences, no audible wheezes, no cough, no stridor, not tachypneic, no tripod positioning and no use of accessory muscles Auscultation: clear to auscultation bilaterally Cardio Jugular venous distension: no JVD Rate: regular rate Rhythm: regular rhythm Skin Other: warm, dry General skin exam: no rashes or lesions noted Neuro General: patient oriented x3 Cranial nerves: Yes Normal hearing present Cognition (Neuro): normal cognition Gait exam (Neuro): Normal gait present Extrem Other: trace BLE Psych Appearance: grossly normal and well kempt Speech and movement: Normal speech and movement present and Clear speech present Affect: normal affect Attitude: cooperative Thought process: Normal thought process present Thought content: Normal thought content present Insight: Good insight present (Psych) Judgement: Good judgement present (Psych) Assessment & Plan Assessment & Plan (1) Asthma: Code(s): J45.909 - Unspecified asthma, uncomplicated Category: Medical (2) Environmental allergies: Code(s): Z91.09 - Other allergy status, other than to drugs and biological substances Category: Medical (3) SOB (shortness of breath) on exertion: Code(s): R06.02 - Shortness of breath Category: Medical (4) Pulmonary nodule: Code(s): R91.1 - Solitary pulmonary nodule Category: Medical Plan Edward reports suboptimal effect on Breo 100 mcg, will increase to 200 mcg. If no improvement, consider possible cardiac contribution. Reviewed prior CTA 02/2023 which revealed 4 mm RML nodule, will repeat to assess stability. Again discussed sending for updated sleep study as patient reports nonrestorative sleep, loud snoring, daytime fatigue however he declined at this time. All questions were answered and patient is in agreement of plan. Will follow up in 6-8 weeks or sooner if needed. Orders: Orders CT chest wo IV con Today R91.1 - Solitary pulmonary nodule Medications: New fluticasone furoate-vilanterol 200-25 mcg/dose (Breo Ellipta) 1 inh inhalation DAILY 60 ea 3RF Discontinued fluticasone furoate-vilanterol 100-25 mcg/dose (Breo Ellipta) Discontinued Reason: Patient Completed Course 1 inh inhalation DAILY 180 ea 0RF Coding Level of Care Code Est Pt Level 4 (01502) Diagnoses Asthma J45.909 Environmental allergies Z91.09 SOB (shortness of breath) on exertion R06.02 Pulmonary nodule R91.1
[2024-12-31 15:43] VITALS: BP 138/82; PULSE 55; O2SAT 98; BMI 34.4
--- OUTSIDE RECORDS SUMMARY | 2024-12-31 17:04 | XMS_ITS | Clinical Summary ---
Author Organization [facility] Facility Address [address] [place] [address] Care Team Providers Care Net Technical Architect Name Role Phone Unavailable Primary Care Provider Unavailabl e Social History Tobacco Use Types Packs/Day Years Used Date Smoking Tobacco: Never Assessed Sex and Gender Information Value Date Recorded Sex Assigned at Not on file Legal Sex Male 4:59 PM EST Gender Identity Not on file Sexual Orientation Not on file Plan of Treatment Health Maintenance Due Date Last Done Comments Colorectal Cancer Screening: Annual FOBT 2007 Colorectal Cancer Screening: Colonoscopy 2007 Colorectal Cancer Screening: Sigmoidoscopy 2007 Pneumococcal Vaccine: 65+ Ye ars (1 of 1 - PCV) 2023 Influenza Vaccine (#1) 2024 Hepatitis B Vaccine Aged Out No longe r eligible based on patient's age to complete this topic Insurance [employer] ([id number]) [employer] ([id number])
== END 2024-12-31 16:19 | disposition home or self-care (01) ==
PROVIDERS: PCP Internal Medicine; Visit Provider Nurse Practitioner Family
DX: J45.909 Unspecified asthma, uncomplicated (principal); Z91.09 Other allergy status, other than to drugs and biological substances; R06.02 Shortness of breath; R91.1 Solitary pulmonary nodule
CPT/HCPCS: 99214

== ENCOUNTER 2025-02-01 15:42 | Outpatient (REF) | payer OTHER, SELFPAY ==
--- NOTE | ~2025-02-01 | CT_ITS ---
CLINICAL HISTORY: R91.1 - Solitary pulmonary nodule CT CHEST WITHOUT CONTRAST Comparison: CR/SR - XR CHEST 2V - 10/19/22 15:25 EST Findings: Prominent calcific plaque in the aorta and coronary arteries. No thoracic aortic aneurysm. Median sternotomy changes with an aortic valve prosthesis. No significant pericardial effusion. No thyromegaly or mediastinal lymphadenopathy. Bilateral gynecomastia. No consolidation, pleural effusion or pneumothorax. No pulmonary mass or suspicious pulmonary nodule. Cholecystectomy. The bones are intact. Mild multilevel disc space narrowing with large flowing endplate osteophytes can be seen with DISH. IMPRESSION: 1. No suspicious pulmonary lesion. 2. No acute process. This document has been electronically signed by: Qing Gomez DO on 02/04/2025 14:04:11
--- OUTSIDE RECORDS SUMMARY | 2025-02-01 17:13 | XMS_ITS | Clinical Summary ---
Author Organization [facility] Facility Address [address] [place] [address] Care Team Providers Care Healthcare Applications Analyst Name Role Phone Unavailable Primary Care Provider [...] patient's age to complete this topic Insurance [employer] ([id number]) [employer] ([id number])
--- OUTSIDE RECORDS SUMMARY | 2025-02-01 17:13 | XMS_ITS ---
Author Organization [facility] Address [address] [place] [address] Care Team Providers Care Molder Inflated Ball Name Role Phone Tonny Mcdermott MD Primary Care Provider Radames Sal [phone] Allergies Allergen (clinical drug ingredient) Drug/Non Drug Allergy documented on EMR Reaction Allergy Type Onset Date Status Penicillin Unknown Drug Allergy Active REASON FOR VISIT Patient presents today for a discuss colonoscopy Medications Medication SIG (Take, Route, Frequency, Duration) Notes [...] Once a day for 30 day(s) Active Social History Tobacco Use: Social History Observation Description Date Details (start date - stop date) Former Smoker NA - NA Tobacco Use/Smoking Question Answer Notes Patient is a former smoker How long has it been since you last smoked? > 10 years Alcohol Screen Question Answer Notes Did you have a drink containing alcohol in the p ast year? No Points 0 Interpretation Negative Section Notes: Former smoker over 15 years ago; no alcohol Vital Signs Blood pressure systolic 00 mm Hg 07/10/20 24 Blood pressure diastolic 00 mm Hg 024 Height 71 in 07/10/2024 Weight 249 lbs 07/10/2024 BMI 34.72 kg/m2 07/10/2024 Encounters Encounter Location Date Provider Diagnosis [facility] [address] [place] [address] 07/10/2024 Radames Molina Encounter for screen ing for malignant neoplasm of colon Z12.11 ; Preprocedural examination Z01.818 ; History of adenomatous polyp of colon Z86.010 and shelter (current) use of aspirin Z79.82 Assessments Encounter Date Diagnosis (ICD Code) Assessment Notes Treatment Notes Treatment Clinical Notes Section Notes 07/10/2024 Encounter for screening for malignant neoplasm of colon (ICD-10 - Z12.11) Stop aspirin and Ibuprofen for a week before the colonoscopy--- we will get a clearance from Dr. Gaytan for the colonoscopy, stoppage of aspirin, and ? of need for antibotics for the valve replacement Overall, Fredy appears to be doing well from a GI standpoint. I did recommend a followup colonoscopy for further screening given his history of tubular adenomas removed back in 2016. We did review the rationale for this regard to colon cancer prevention. Full consent was obtained from him for this, including risks of bleeding and perforation. The procedure will be done monitored anesthesia care. He was given the below instructions regarding adjustment of his medications for the procedure. We will obtain clearance from Dr. Gaytan for the procedure, although I don't think this will be a problem as he has been currently cleared to undergo his upcoming neck surgery. Fredy was comfortable with this plan. Thank you again for allowing me to participate in Fredy's care. I shall continue to keep you advised of his progress. 07/10/2024 Preprocedural examination (ICD-10 - Z01.818) Overall, Fredy appears to be doing well from a GI standpoint. I did recommend a followup colonoscopy for further screening given his history of tubular adenomas removed back in 2017. We did review the rationale for this regard to colon cancer prevention. Full consent was obtained from him for this, including risks of bleeding and perforation. The procedure will be done monitored anesthesia care. He was given the below instructions regarding adjustment of his medications for the procedure. We will obtain clearance from Dr. Gaytan for the procedure, although I don't think this will be a problem as he has been currently cleared to undergo his upcoming neck surgery. Fredy was comfortable with this plan. Thank you again for allowing me to participate in Fredy's care. I shall continue to keep you advised of his progress. 07/10/2024 History of adenomatous polyp of colon (ICD-10 - Z86.010) Overall, Fredy appears to be doing well from a GI standpoint. I did recommend a followup colonoscopy for further screening given his history of tubular adenomas removed back in 2017. We did review the rationale for this regard to colon cancer prevention. Full consent was obtained from him for this, including risks of bleeding and perforation. The procedure will be done monitored anesthesia care. He was given the below instructions regarding adjustment of his medications for the procedure. We will obtain clearance from Dr. Gaytan for the procedure, although I don't think this will be a problem as he has been currently cleared to undergo his upcoming neck surgery. Fredy was comfortable with this plan. Thank you again for allowing me to participate in Fredy's care. I shall continue to keep you advised of his progress. 07/10/2024 shelter (current) use of aspirin (ICD-10 - Z79.82) Overall, Fredy appears to be doing well from a GI standpoint. I did recommend a followup colonoscopy for further screening given his history of tubular adenomas removed back in 2017. We did review the rationale for this regard to colon cancer prevention. Full consent was obtained from him for this, including risks of bleeding and perforation. The procedure will be done monitored anesthesia care. He was given the below instructions regarding adjustment of his medications for the procedure. We will obtain clearance from Dr. Gaytan for the procedure, although I don't think this will be a problem as he has been currently cleared to undergo his upcoming neck surgery. Fredy was comfortable with this plan. Thank you again for allowing me to participate in Fredy's care. I shall continue to keep you advised of his progress. Plan Of Treatment Treatment Notes Assessment Notes Encounter for screening for malignant neoplasm of colon Stop aspirin and Ibuprofen for a week before the colonoscopy---we will get a clearance from Dr. Gaytan for the colonoscopy, stoppage of aspirin, and ? of need for antibotics for the valve replacement Future Test Test Name Order Date COLONOSCOPY 07/10/2024 Next Appt Details Follow Up: prn, Reason: Progress Notes * ANISHAFREDY Castañeda WDOB: [birth year] (64 yo M)Acc No.[id number]:07/10/2024 Progress Notes Patient:?FREDY ORELLANA Provider:?Radames Molina MD :1960???Age:63 Y???Sex:Male Paramjit e:07/10/2024 [facility] [place] Pcp:Tonny Mcdermott MD Subjective: * Chief Complaints: * ???Patient presents today fo r a discuss colonoscopy * HPI: ???incontinence:? I saw Fredy in the office today for evaluation of his personal history of tubular adenomas of the colon and need for colorectal cancer screening. ?I last saw Fredy in 2021. At that time I had scheduled him for a colonoscopy for screening given a history of tubular adenomas removed in 2016. However, his colonoscopy could not be done at that time as he had to undergo aortic valve replacement for aortic stenosis in April of 2023. Since that time he has been doing well from a GI standpoint. His bowel movements have remained fairly regular and without any signs of bleeding. He does describe some intermittent bowel movement irregularity due to lactose intolerance. He enjoys a good appetite, without any significant heartburn or dysphagia. He denies abdominal pain, jaundice, nor unintentional weight loss. He denies any known family history of colorectal cancer. Laboratories earlier this year revealed a normal CBC, chemistries and renal function, and LFTs. ?Of note, he is scheduled for neck surgery with Dr. Oliveira for mid-July. * ROS:?General/Constitutional:?Change in appetite?denies.?Chills?denies.?Fatigue?denies.?Ophthalmologic:?Comments?all negative.?ENT:?Comments?all negative.?Respiratory:?hemoptysis?denies.?Cough?denies.?Cardiovascular:?Chest pain?denies.?Orthopnea?denies.?Gastrointestinal:?Comments?See HPI for details.?Genitourinary:?Hematuria?denies.?Dysuria?denies.?Musculoskeletal:?Painful joints?denies.?Weakness?denies.?Skin:?Itching?denies.?Rash?denies.?Neurologic:?Headache?denies.?Seizures?denies.?Psychiatric:?Comments?all negative.? * Medical History:? * Surgical History:?Cholecyste ctomy Aortic valve replacement--bovine valve 05/03/2023Neck surgery scheduled for July of [address] Oliveira * Hospitalization/Major Diagno stic Procedure:?No Hospitalization History. * Family History:?Father: dece ased.?Mother: .?Maternal uncle: , diagnosed with Colon cancer.? No known hx of colon cancer in 1st degree relatives. * Social History:?Tobacco Use:?Tobacco Use/Smoking?Patient is a?former smoker,?How long has it been since you last smoked??> 10 years.?Drugs/Alcohol:?Alcohol Screen?Did you have a drink containing alcohol in the past year??No,?Points?0,?Interpretation?Negative.?Miscellaneous:?Marital status: . 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 ???Former smoker over 15 years ago; no alcohol. * Medications:?TakingAspirin 8 1 81 MG Tablet Chewable 1 tablet Orally Once a dayAtorvastatin Calcium 40 MG Tablet TAKE 1 TABLET BY MOUTH EVERY DAY Oral Lisinopril-hydroCHLOROthiazide 10-12.5 MG Tablet 1 tablet Orally Once a dayIbuprofen 800 MG Tablet Oral Metoprolol Tartrate 25 MG Tablet Oral Clindamycin HCl 300 MG Capsule TAKE 2 CAPSULES BY MOUTH 30 MIN PRIOR TO DENTAL APPOINTMENT DIRECTED Oral , Notes: for dental workTaking Aspirin 81 81 MG Tablet Chewable 1 tablet Orally Once a dayTaking Atorvastatin Calcium 40 MG Tablet TAKE 1 TABLET BY MOUTH EVERY DAY Oral Taking Lisinopril-hydroCHLOROthiazide 10-12.5 MG Tablet 1 tablet Orally Once a dayTaking Ibuprofen 800 MG Tablet Oral Taking Metoprolol Tartrate 25 MG Tablet Oral Taking Clindamycin HCl 300 MG Capsule TAKE 2 CAPSULES BY MOUTH 30 MIN PRIOR TO DENTAL APPOINTMENT DIRECTED Oral , Notes: for dental workUnknownMultivitamin Adult Tylenol prnMedication List reviewed and reconciled with the patientUnknown Multivitamin Adult Unknown Tylenol prnMedication List reviewed and reconciled with the patient * Allergies:?Penicillinyes[All ergies Verified] Objective: * Vitals:?Wt: 249 lbs, Ht: 71 in, BMI:34.72 Index, BP: 00/00 mm Hg. * Examination: ???General Examination: ?GENERAL APPEARANCE:?pleasant, well nourished, well developed, in no acute distress.?EYES:?sclera non-icteric.?ORAL CAVITY:?mucosa moist.?NECK/THYROID:?no cervical lymphadenopathy, neck supple.?SKIN:?nonjaundiced, no spider angiomata.?HEART:?S1, S2 normal.?LUNGS:?clear to auscultation bilaterally.?ABDOMEN:?normal bowel sounds, no guarding or rigidity, no guarding or rigidity, no masses palpable, soft, nontender, nondistended.?EXTREMITIES:?no edema.?NEUROLOGIC:?alert and oriented.? Assessment: * Assessment: 1.?Preprocedural examination - Z01.818 (Primary)?2.?Encounter for screening for malignant neoplasm of colon - Z12.11?3.?History of adenomatous polyp of colon - Z86.010?4.?termination clerk (current) use of aspirin - Z79.82? Overall, Fredy appears to b e doing well from a GI standpoint. I did recommend a followup colonoscopy for further screening given his history of tubular adenomas removed back in 2017. We did review the rationale for this regard to colon cancer prevention. Full consent was obtained from him for this, including risks of bleeding and perforation. The procedure will be done monitored anesthesia care. He was given the below instructions regarding adjustment of his medications for the procedure. We will obtain clearance from Dr. Gaytan for the procedure, although I don't think this will be a problem as he has been currently cleared to undergo his upcoming neck surgery. Fredy was comfortable with this plan. Thank you again for allowing me to participate in Fredy's care. I shall continue to keep you advised of his progress. Plan: * Treatment: Notes: Stop aspirin and Ibuprofen for a week before the colonoscopy---we will get a clearance from Dr. Gaytan for the colonoscopy, stoppage of aspirin, and ? of need for antibotics for the valve replacement??2.?History of adenomatous polyp of colon?Procedure: COLONOSCOPY (Ordered for 07/10/2024)* with MACsched for 11/09/24 a t 7:30 ammiralax * Procedure Codes:?3017F COLOR ECTAL CA SCREEN DOC LIP6059V TOBACCO NON-CFCNG2410 BP SCR NOT PRFRM REC REASON NOS * Preventive Medicine:? ??Counseling:?Care goal follow-up plan:?Above Normal BMI Follow-up?Giving encouragement to exercise,?BMI management provided?Yes.? ??Screenings:?Fall Risk Screening?Fall Risk Assessment:?No falls in the past year.? * Follow Up:?prn * * Sign off status: Completed true * Provider:?Radames Molina MD Date:? 024 Generated for Jose crabtree/Chela/Jeffitting on:?02/01/2025 05:12 PM EST History and Physical Notes * HPI (History of Present Illness) Category Sub-Category Detail Notes Category Not es incontinence I saw Fredy in the office today for evaluation of his personal history of tubular adenomas of the colon and need for colorectal cancer screening. I last saw Fredy in 2021. At that time I had scheduled him for a colonoscopy for screening given a history of tubular adenomas removed in 2016. However, his colonoscopy could not be done at that time as he had to undergo aortic valve replacement for aortic stenosis in April of 2023. Since that time he has been doing well from a GI standpoint. His bowel movements have remained fairly regular and without any signs of bleeding. He does describe some intermittent bowel movement irregularity due to lactose intolerance. He enjoys a good appetite, without any significant heartburn or dysphagia. He denies abdominal pain, jaundice, nor unintentional weight loss. He denies any known family history of colorectal cancer. Laboratories earlier this year revealed a normal CBC, chemistries and renal function, and LFTs. Of note, he is scheduled for neck surgery with Dr. Oliveira for mid-July. Examination Category Sub-Category Detail Notes Category Not es General Examination GENERAL APPEARANCE: pleasant , well [...]
--- OUTSIDE RECORDS SUMMARY | 2025-02-01 17:13 | XMS_ITS ---
Author Organization Tonny Mcdermott MD Address [address] [place] [phone] Care Team Providers Care Diesel Locomotive Engineer Name Role Phone Baldemar Tonny Primary Care Provider REASON FOR VISIT FASTING LIPIDS Encounters Encounter Location Date Provider Diagnosis Tonny Mcdermott MD [address] [place] [phone] 08/31/2024 Tonny Mcdermott Hyperlipidemia, unspecified E78.5 and Prediabetes R73.09 Assessments Encounter Date Diagnosis (ICD Code) Assessment Notes Treatment Notes Treatment Clinical Notes Section Notes 08/31/2024 Hyperlipidemia, unspecified (ICD-10 - E78.5) 08/31/2024 Prediabetes (ICD-10 - R73.09) Plan Of Treatment Pending Test Test Name Order Date Liver Panel 08/31/2024 Glucose Fasting 08/31/2024 Lipid Panel with Reflex 08/31/2024 Hemoglobin A1c 08/31/2024 Next Appt Details Provider Name:Tonny Wright ieoralia, 02/25/2025 07:45:00 AM, [address], [address], [place], [phone], Provider Name:Tonny Wright ier, 03/04/2025 04:00:00 PM, [address], [address], [place], [phone], Progress Notes * Fredy PETERSON WDOB: [birth year] (64 yo M)Acc No.[id number]:08/31/2024 Progress Note Patient:?Fredy PETERSON W Provider:?Tonny Mcdermott MD :1960???Age:64 Y???Sex:Male Paramjit e:08/31/2024 Address:[address] [place] [address] [place] Subjective: * Chief Complaints: * ???1. FASTING LIPIDS. * Medical History:? Objective: * Vitals:? Assessment: * Assessment: 1.?Hyperlipidemia, unspecifi ed - E78.5???2.?Prediabetes - R73.09??? Plan: * Treatment: 2.?Prediabetes?LAB: Liver Panel ?LAB: Glucose Fasting ?LAB: Lipid Panel with Reflex ?LAB: Hemoglobin A1c * * The named appointment provid er may or may not be the originator of this progress note, and it is not deemed complete until electronically signed by the appointment provider. Sign off status: Pending * Provider:?Tonny Mcdermott MD Date:?1 Generated for Jose crabtree/Chela/eTransmitting on:?02/01/2025 05:13 PM EST
--- OUTSIDE RECORDS SUMMARY | 2025-02-01 17:13 | XMS_ITS ---
Author Organization [facility] Address [address] [place] [address] Care Team Providers Care Printmaker Name Role Phone Tonny Mcdermott MD Primary Care Provider UnaRadames Borrego Unavailable [phone] REASON FOR VISIT screening,hx polyps Problems Problem Type SNOMED Code ICD Code Onset Dates Problem Status W/U Status Risk Notes Problem Diverticular disease of colon (218165305) Diverticulosis of large intestine without perforation or abscess without bleeding (K57.30) Active confirmed Encounters Encounter Location Date Provider Diagnosis [facility] [place] [facility] [address] [place] [phone] 11/09/2024 Radames Molina Colon cancer scree simón [...] YONATAN ORELLANA WDOB: [birth year] (64 yo M)Acc No.[id number]:11/09/2024 COLON WITH MAC Patient:?YONATAN ORELLANA Provider:?Radames Molina MD :1960???Age:64 Y???Sex:Male Paramjit e:11/09/2024 Address: [address] [facility] Pcp:Tonny Mcdermott MD Subjective: * Chief Complaints: * ???1. Screening,hx polyps. * Medical History:? Objective: * Vitals:? Assessment: * Assessment: 1.?Colon cancer screening - Z12.11 (Primary)???2.?Colon polyps - K63.5???3.?Diverticulosis of large intestine without perforation or abscess without bleeding - K57.30???4.?Other hemorrhoids - K64.8??? Plan: * Treatment: * Procedure Codes:?76619 COLON OSCOPY AND BIOPSY, Modifiers: 33 * * The named appointment provid er may or may not be the originator of this progress note, and it is not deemed complete until electronically signed by the appointment provider. Sign off status: Pending * Provider:?Radames Molina MD Date:? 024 Generated for Jose crabtree/Chela/eTransmitting on:?02/01/2025 05:13 PM EST
--- OUTSIDE RECORDS SUMMARY | 2025-02-01 17:13 | XMS_ITS ---
Author Organization Tonny Mcdermott MD Address [address] [place], [place] [id number] Care Team Providers Care Biology Specimen Technician Name Role Phone BaldemarSonjan Primary Care Provider [phone] Allergies Allergen (clinical drug ingredient) Drug/Non Drug Allergy documented on EMR Reaction Allergy Type Onset Date Status penicillin (uncoded) rash Allergy Active Reason For Referral Reason SHORTNESS OF BREATH ON EXERTION Diagnosis 1 Shortness of breath on exertion (R06.02) Referral Organization Tonny Mcdermott MD Referring Provider First Name Tonny Referring Provider Last Name Baldemar Referring Provider Speciality Internal M edicine Referred Provider MILKA PROCTOR Referred Provider Specialty Pulmonary Di seases General Notes Mckenzie Wilkins 09/24/2024 03:59:50 PM EDT > THE REFERRAL [facility] 11/15/2024 08:02:50 AM EST > OFFICE NOTE RECD Referral Priority Routine Referral Appointment Date 11/12/2024 REASON FOR VISIT 6 MO F/U Medications Medication SIG (Take, Route, Frequency, Duration) Notes Start Date End Date Status Aspir-Low 81 MG 1 tablet Orally Once a day for 30 day(s) Active Ibuprofen 800 MG TAKE 1 TABLET BY EVERY 8 HOURS WITH FOOD OR MILK [...] a day for 10 days 06/21/2014 Not-Taking Vital Signs Blood pressure systolic 152 mm Hg 09/24/20 24 Blood pressure diastolic 74 mm Hg 024 Height 70 in 09/24/2024 Weight 250 lbs 09/24/2024 BMI 35.87 kg/m2 09/24/2024 Encounters Encounter Location Date Provider Diagnosis Tonny Mcdermott MD [address] [facility] [address] [place], [place] [id number] 09/24/2024 Tonny Mcdermott H/O aortic valve replacement Z95.2 ; Cervical disc disease M50.90 and Shortness of breath on exertion R06.02 Assessments Encounter Date Diagnosis (ICD Code) Assessment Notes Treatment Notes Treatment Clinical Notes Section Notes 09/24/2024 H/O aortic valve replacement (ICD-10 - Z95.2) need the results of echo done by dr kam this month/ REQUEST MADE [place] [facility] 09/24/2024 Cervical disc disease (ICD-10 - M50.90) seems that he may be having trouble with disc still 09/24/2024 Shortness of breath on exertion (ICD-10 - R06.02) at times gets wheezing and tried inhaler with no improvemnt/ referrlal to [facility] Plan Of Treatment Treatment Notes Assessment Notes H/O aortic valve replacement need the re sults of echo done by dr kam this month/ REQUEST MADE TO [place] [facility] Cervical disc disease seems that he may be having trouble with disc still Shortness of breath on exertion at times gets wheezing and tried inhaler with no improvemnt/ referrlal to [facility] Referrals Referral Date Details 09/24/2024 09/24/2024, SHORTNES S OF BREATH ON EXERTION, MILKA PROCTOR Next Appt Details Follow Up: 2 Months, Reason: Provider Name:Tonny Wright isma, 02/25/2025 07:45:00 AM, [address], [address], [place], [place], [phone], Provider Name:Tonny Ranjit Isabellchristiano isma, 03/04/2025 04:00:00 PM, [address], [address], [place], [place], [phone], Progress Notes * Fredy PETERSON WDOB: [birth year] (64 yo M)Acc No.[id number]:09/24/2024 Progress Notes Patient:?Fredy Peterson W Provider:?Tonny Mcdermott MD :1960???Age:64 Y???Sex:Male Paramjit e:09/24/2024 Address:[address] [place], [place] [id number] Subjective: * Chief Complaints: * ???6 MO F/U * HPI: ???Symptom(s):? patient is a 64 yo male here for 6 month follow up visit. gaining weight. not walking in the morning. had neck and carpal tunnel surgery. going to see shoulder specialist/ pain goes from shoulder down arm. * ROS:?General/Constitutional:?Denies?Chills.?Denies?Fatigue.?Denies?Fever.?Denies?Headache.?ENT:?Patient denies?decreased sense of smell, any loss of taste, sore throat.?Denies?Sore throat.?Respiratory:?Denies?Cough.?Denies?Shortness of breath at rest.?Denies?Shortness of breath with exertion.?Cardiovascular:?Denies?Chest pain at rest.?Denies?Chest pain with exertion.?Denies?Dizziness.?Denies?Palpitations.?Denies?Shortness of breath.?Gastrointestinal:?Denies?Diarrhea.?Denies?Nausea.?Musculoskeletal:?Patient denies?muscle aches.?Peripheral Vascular:?Patient denies?red and blue toes.? * Medical History:? * Surgical History:? * Hospitalization/Major Diagno stic Procedure:? * Medications:?TakingAspir-Low 81 MG Tablet Delayed Release 1 tablet Orally Once a dayIbuprofen 800 MG Tablet TAKE 1 TABLET BY MOUTH EVERY 8 HOURS WITH FOOD OR MILK NEEDED Metoprolol Tartrate 25 MG Tablet 1 tablet with food Orally Twice a dayAtorvastatin Calcium 40 MG Tablet TAKE 1 TABLET BY MOUTH EVERY DAY Lisinopril-hydroCHLOROthiazide 10-12.5 MG Tablet TAKE 1 TABLET BY MOUTH EVERY DAY Taking Aspir-Low 81 MG Tablet Delayed Release 1 tablet Orally Once a dayTaking Ibuprofen 800 MG Tablet TAKE 1 TABLET BY MOUTH EVERY 8 HOURS WITH FOOD OR MILK NEEDED Taking Metoprolol Tartrate 25 MG Tablet 1 tablet with food Orally Twice a dayTaking Atorvastatin Calcium 40 MG Tablet TAKE 1 TABLET BY MOUTH EVERY DAY Taking Lisinopril-hydroCHLOROthiazide 10-12.5 MG Tablet TAKE 1 TABLET BY MOUTH EVERY DAY Not-Taking/PRNAlbuterol Sulfate HFA 108 (90 Base) MCG/ACT Aerosol Solution 1 puff as needed Inhalation every 4 hrsClobetasol Propionate 0.05 % Ointment 1 application to affected area Externally Twice a dayMedication List reviewed and reconciled with the patientNot-Taking/PRN Albuterol Sulfate HFA 108 (90 Base) MCG/ACT Aerosol Solution 1 puff as needed Inhalation every 4 hrsNot-Taking/PRN Clobetasol Propionate 0.05 % Ointment 1 application to affected area Externally Twice a dayMedication List reviewed and reconciled with the patient * Allergies:?penicillin: rashy es[Allergies Verified] Objective: * Vitals:?Ht: 70, Wt:250, BMI: 35.87, BP:152/74, Repeat BP:150/78. * ???Past Orders: ???Lab:Liver Panel (Order Da te - 08/29/2024) (Collection Date - 08/29/2024) ? Value Reference Range ?Bilirubin Total 0.9 0.0- 1.0 - mg/dL ?Bilirubin Direct 0.3 0.0 -0.5 - mg/dL ?Aspartate Amino Transferase 29 5-37 - U/L ?Alanine Aminotransferase 21 0-40 - U/L ?Total Protein 6.7 6.5-8. 0 - g/dL ?Albumin Level 4.0 3.5-5. 0 - g/dL ?Alkaline Phosphatase 86 39-117 - U/L ???Lab:Glucose Fasting (Orde r - 08/29/2024) (Collection Date - 08/29/2024) ? Value Reference Range ?Glucose Fasting 126 H 60-9 9 - mg/dL ???Lab:Lipid Panel with Refl ex (Order Date - 08/29/2024) (Collection - 08/29/2024) ? Value Reference Range ?Triglycerides 96 <150 - mg/dL ?Cholesterol 145 <200 - m g/dL ?LDL Cholesterol Calculated 83 <100 - mg/dL ?HDL Cholesterol 43 >40 - mg/dL ???Lab:Hemoglobin A1c (Order Date - 08/29/2024) (Collection Date - 08/29/2024) ? Value Reference Range ?Hemoglobin A1c % 5.7 <6. 0 - % ?Estimated Average Glucose 117 - mg/dL * Examination: ???General Examination: ?GENERAL APPEARANCE:? alert, well hydrated, in no distress .?HEAD:? normocephalic.?SKIN:? good turgor.?HEART:? grade 2/6 systolic murmur at left sternal border.?LUNGS:? no wheezes, rales, rhonchi, good air movement, clear to auscultation bilaterally.? Assessment: * Assessment: 1.?H/O aortic valve replacem ent - Z95.2?2.?Cervical disc disease - M50.90?3.?Shortness of breath on exertion - R06.02? Plan: * Treatment: 2.?Cervical disc disease? Notes: seems that he may be having trouble with disc still?? 3.?Shortness of breath on ex ertion? Notes: at times gets wheezing and tried inhaler with no improvemnt/ ref[facility]al [place] [facility]? Referral To:MILKA PROCTOR??Pulmonary Diseases ?Reason:SHORTNESS OF BREATH ON EXERTION * Procedure Codes:? * Follow Up:?2 Months * * Sign off status: Completed true * Provider:?Tonny Mcdermott MD Date:?1 Generated for Jose crabtree/Chela/eTdaphnesmitting on:?02/01/2025 05:13 PM EST History and Physical Notes * HPI (History of Present Illness) Category Sub-Category Detail Notes Category Not es Symptom(s) patient is a 64 yo male here for 6 month follow up visit. gaining weight. not walking in the morning. had neck and carpal tunnel surgery. going to see shoulder specialist/ pain goes from shoulder down arm Examination Category Sub-Category Detail Notes Category Not es General Examination GENERAL APPEARANCE: alert, w ell hydrated, in no distress HEAD: normocephalic HEART: grade 2/6 systolic m urmur at left sternal border LUNGS: no wheezes, rales, r honchi, good air movement, clear to auscultation bilaterally SKIN: good turgor Consultation Request Notes Referral Date Referring Provider Referred Provider Not es 09/24/2024 Tonny Mcdermott MOHAMMAD SHORTNES S OF BREATH ON EXERTION
--- OUTSIDE RECORDS SUMMARY | 2025-02-01 17:14 | XMS_ITS | Patient Health Record ---
Author Organization [facility] Address [address] [place] [address] Care Team Providers Care Sequins Stringer Name Role Phone Tonny Mcdermott MD Primary Care Provider Radames Sal Unavailable [phone] Allergies Allergen (clinical drug ingredient) Drug/Non Drug Allergy documented on EMR Reaction Allergy Type Onset Date Status Penicillin Unknown Drug Allergy Active Results Component Value Reference Range Notes Pathology (Not yet reviewed by provider) Interpretation: Performing Lab:[facility], [address] [place] [id number] Notes/Report: Name: Fredy Peterson Age/Sex: 64/M : 1960 Unit#: [id number] Attend Dr: Radames Molina MD Re11/09/24 Status : [facility] Location: [facility] Disch: SPEC : [id number] RECD : 11/09/24 STATUS: CHAPITO LÓPEZ NUM: [id number] GABI: 11/09/[address] [facility] [address]: Radames Molina MD ENTERED: 11/09/24- 43 SP TYPE: Surgical OTHR DR: Tonny Mcdermott MD ORDERED: HE Stain/3, Gross Micro L4 Diagnosis Colon, at 50 cm, shaina yp: Tubular adenoma; negative for high-grade dysplasia and carcinoma. Clinical History Pre-Op Dx: Screening Post-Op Dx: Colon po lyp, diverticulosis, hemorrhoids Microscopic Description Microscopic sections reviewed. Material Received Polyp at 50 cm Gross Description Received in formalin labeled ?polyp at 50 cm? is a 0.25 cm ross papular tissue fragment, submitted in toto in a cassette labeled A. CEDS Copies To: Tonny Mcdermott MD [facility] [address] [place] [address] Drive [address] [place], [place] [phone] Radames Molina MD [facility] [address] [place] [address] [address] [place] [address] Signed (si gnature on file) Bernadette Ángel 11/15/24 1537 END OF REPORT Reason For Referral No Information Medications Medication SIG (Take, Route, Frequency, Duration) [...] Once a day for 30 day(s) Active Immunizations Vaccine Route Administration Date Status Comme nts Influenza Unknown 11/10/2022 Refused Social History Tobacco Use: Social History Observation [...] smoker over 15 years ago; no alcohol Former smoker over 15 years ago; no alcohol Former smoker over 15 years ago; no alcohol Problems Problem Type SNOMED Code ICD Code Onset Dates Problem Status W/U Status Risk Notes Problem 315858548 Encounter for screening for malignant neoplasm of colon (Z12.11) Active confirmed Problem History of adenomatous polyp of colon (003178003) History of adenomatous polyp of colon (Z86.010) Active confirmed Problem Diverticular disease of colon (401024162) Diverticulosis of large intestine without perforation or abscess without bleeding (K57.30) Active confirmed Problem Long-term current use of antiplatelet drug (708760166555072 ) FPC (current) use of aspirin (Z79.82) Active confirmed Problem 430870999 Preprocedural examination (Z01.818) Active confirmed Vital Signs Blood pressure diastolic 00 mm Hg 07/10/2024 Height 71 in 07/10/2024 Blood pressure systolic 00 mm Hg 07/10/2024 Weight 249 lbs 07/10/2024 BMI 34.72 kg/m2 07/10/2024 Encounters Encounter Location Date Provider Diagnosis [facility] Outpatient [address] [place] [phone] 11/09/2024 Radames Molina Colon cancer screeni ng Z12.11 ; Colon polyps K63.5 ; Diverticulosis of large intestine without perforation or abscess without bleeding K57.30 and Other hemorrhoids K64.8 [facility] [address] [facility] [address] [place] [address] 07/10/2024 Radames Molina Encounter for screen ing for malignant neoplasm of colon Z12.11 ; Preprocedural examination Z01.818 ; History of adenomatous polyp of colon Z86.010 and termination clerk (current) use of aspirin Z79.82 Assessments Encounter Date Diagnosis (ICD Code) Assessment Notes Treatment Notes Treatment Clinical Notes Section Notes 11/09/2024 Colon cancer screening (ICD-10 - Z12.11) 11/09/2024 Colon polyps (ICD-10 - K63.5) 07/10/2024 Encounter for screening for malignant neoplasm [...] to keep you advised of his progress. 11/09/2024 Diverticulosis of large intestine without perforation or abscess without bleeding (ICD-10 - K57.30) 07/10/2024 History of adenomatous polyp of colon [...] to keep you advised of his progress. 11/09/2024 Other hemorrhoids (ICD-10 - K64.8) 07/10/2024 FPC (current) use of aspirin (ICD-10 - Z79.82) [...] advised of his progress. Plan Of Treatment Pending Test Test Name Order Date Pathology 11/09/2024 Future Test Test Name Order Date COLONOSCOPY 04/22/2017 COLONOSCOPY 11/10/2022 COLONOSCOPY 07/10/2024 Insurance Providers Payer Name Payer Address Payer Phone Subscriber Number Group Number Insured Name Patient Relationship to Insured Coverage Start Date Coverage End Date Brock MENJIVAR [address] [place] [phone] [id number] FREDY PETERSON Self - patient is the insured Medical (General) History Medical History History ICD Code Colonoscopy 09-02-2006 for ev aluation of Heme + stool---negative except for internal hemorrhoids Hyperlipidemia Hypertension History of pancreatitis in 2003 in relat ion to elevated triglycerides Denies VA,DM,CVA,Lung disease,renal dise ase History of sleep apnea--used CPAP--resolved with weight loss, but has gained 30 # bsck Peyronie's disease Colonoscopy 07/2017 with 3 tubular adenom as removed Cardiac catheterization-normal coronarie s but moderate aortic stenosis Surgical History Surgery Date(Month/Year) Cholecystectomy Aortic valve replacement--bovine valve 0 05/03/2023 Neck surgery scheduled for July of [address] Oliveira
--- OUTSIDE RECORDS SUMMARY | 2025-02-01 17:14 | XMS_ITS ---
Author Organization Tonny Mcdermott MD Address [address] [place], [place] [id number] Care Team Providers Care Sales Warehouse Driver Name Role Phone Tonny Mcdermott Primary Care Provider Allergies Allergen (clinical drug ingredient) Drug/Non Drug Allergy documented on EMR Reaction Allergy Type Onset Date Status penicillin (uncoded) rash Allergy Active REASON FOR VISIT 2 MO F/U Medications Medication SIG (Take, Route, Frequency, Duration) Notes Start Date End Date Status Metoprolol Tartrate 25 MG 1 tablet with food Orally Twice a day Active Clobetasol Propionate 0.05 % 1 application to affected area Externally Twice a day for 10 days 06/21/2014 Not-Taking Atorvastatin Calcium 40 MG TAKE 1 TABLET BY MOUTH EVERY DAY for 90 Active Lisinopril-hydroCHLOROthi azide 10-12.5 MG TAKE 1 TABLET BY MOUTH EVERY DAY for 90 Active Albuterol Sulfate HFA 108 (90 Base) MCG/ACT 1 puff as needed Inhalation every 4 hrs for 30 days 08/23/2022 Not-Taking Breo Ellipta 100-25 MCG/ACT 1 puff Inhalation Once a day Active Aspir-Low 81 MG 1 tablet Orally Once a day for 30 day(s) Active Ibuprofen 800 MG TAKE 1 TABLET BY CONTRERAS TH EVERY 8 HOURS WITH FOOD OR MILK NEEDED for 30 Active Immunizations Vaccine Route Administration Date Status Comme nts Influenza High Dose Unknown 12/10/2024 Refused Vital Signs Blood pressure systolic 116 mm Hg 12/10/19 25 Blood pressure diastolic 64 mm Hg 025 Height 70 in 12/10/2024 Weight 244 lbs 12/10/2024 BMI 35.01 kg/m2 12/10/2024 weight is down 6 pounds [facility] e 10-28-24 Encounters Encounter Location Date Provider Diagnosis Tonny Mcdermott MD [address] [place] [phone] 12/10/2024 Tonny Mcdermott Essential hypertension I10 ; H/O aortic valve replacement Z95.2 and Cervical disc disease M50.90 Assessments Encounter Date Diagnosis (ICD Code) Assessment Notes Treatment Notes Treatment Clinical Notes Section Notes 12/10/2024 Essential hypertension (ICD-10 - I10) well controlled 12/10/2024 H/O aortic valve replacement (ICD-10 - Z95.2) still short of breath 12/10/2024 Cervical disc disease (ICD-10 - M50.90) has had sugrgery 12/10/2024 Other get copy of the ct chest from pulmonry at [facility] [place] [place] Plan Of Treatment Treatment Notes Assessment Notes Essential hypertension well controlled H/O aortic valve replacement still short of breath Cervical disc disease has had sugrgery Other get copy of the ct c hest from pulmonry at [facility] Next Appt Details Provider Name:Tonny ashby, 02/25/2025 07:45:00 AM, [address], [address], [place], [place], [phone], Provider Name:Tonny ashby, 03/04/2025 04:00:00 PM, [address] [facility], [address], [place], [place], [phone], Progress Notes * Fredy PETERSON WDOB: [birth year] (64 yo M)Acc No.[id number]:12/10/2024 Progress Notes Patient:?Fredy Peterson Provider:?Tonny Mcdermott MD :1960???Age:64 Y???Sex:Male Paramjit e:12/10/2024 Address:[place], [id number] Subjective: * Chief Complaints: * ???2 MO F/U * HPI: ???Symptom(s):? patient is a 64 yo male here for 2 month follow up visit/ never got his ct ordered. was just a few weeks. dr craft sometimes getting pains behind his knee. * ROS:?General/Constitutional:?Denies?Chills.?Denies?Fatigue.?Denies?Fever.?Denies?Headache.?ENT:?Patient denies?decreased sense of smell , any loss of taste , sore throat.?Denies?Sore throat.?Respiratory:?Denies?Cough.?Denies?Shortness of breath at rest.?Denies?Shortness of breath with exertion.?Gastrointestinal:?Denies?Diarrhea.?Denies?Nausea.?Musculoskeletal:?Patient denies?muscle aches.?Peripheral Vascular:?Patient denies?red and blue toes.? * Medical History:? * Surgical History:? * Hospitalization/Major Diagno stic Procedure:? * Medications:?TakingBreo Chelly mud analysis well logging captain 100-25 MCG/ACT Aerosol Powder Breath Activated 1 puff Inhalation Once a dayAspir-Low 81 MG Tablet Delayed Release 1 tablet Orally Once a dayIbuprofen 800 MG Tablet TAKE 1 TABLET BY MOUTH EVERY 8 HOURS WITH FOOD OR MILK NEEDED Metoprolol Tartrate 25 MG Tablet 1 tablet with food Orally Twice a dayAtorvastatin Calcium 40 MG Tablet TAKE 1 TABLET BY MOUTH EVERY DAY Lisinopril-hydroCHLOROthiazide 10-12.5 MG Tablet TAKE 1 TABLET BY MOUTH EVERY DAY Taking Breo Ellipta 100-25 MCG/ACT Aerosol Powder Breath Activated 1 puff Inhalation Once a dayTaking Aspir-Low 81 MG Tablet Delayed Release 1 [...] rashy es[Allergies Verified] Objective: * Vitals:?Ht: 70, Wt:244, BMI: 35.01, BP:116/64 weight is down 6 pounds since 09-24-24. * Examination: ???General Examination: ?GENERAL APPEARANCE:?alert, well hydrated, in no distress.?HEAD:?normocephalic.?SKIN:?good turgor.?HEART:?no murmurs, rubs, gallops , regular rate and rhythm.?LUNGS:?no wheezes, rales, rhonchi , good air movement , clear to auscultation bilaterally.? Assessment: * Assessment: 1.?Essential hypertension - I10?2.?H/O aortic valve replacement - Z95.2?3.?Cervical disc disease - M50.90? Plan: * Treatment: 2.?H/O aortic valve replacem ent? Notes: still short of breath?? 3.?Cervical disc disease? Notes: has had sugrgery?? 4.?Others? Notes: get copy of the ct chest from pulmonqry at [facility]?? * Immunizations:? Influenza High Dose (Not administered - Refused: Patient decision) * Procedure Codes:? * * Sign off status: Completed true * Provider:?Tonny Mcdermott MD Date:?0 12/10/2024 Generated for Jose crabtree/Chela/eTransmitting on:?02/01/2025 05:13 PM EST History and Physical Notes * HPI (History of Present Illness) Category Sub-Category Detail Notes Category Not es Symptom(s) patient is a 64 yo male here for 2 month follow up visit/ never got his ct ordered. was just a few weeks. dr craft sometimes getting pains behind his knee. Examination Category Sub-Category Detail Notes Category Not es General Examination GENERAL APPEARANCE: alert, w ell hydrated, in no distress HEAD: normocephalic HEART: no murmurs, rubs, ga llops , regular rate and rhythm LUNGS: no wheezes, rales, r honchi , good air movement , clear to auscultation bilaterally SKIN: good turgor
== END 2025-02-01 15:43 | disposition home or self-care (01) ==
LOC: HO.CT 15:42
PROVIDERS: PCP Internal Medicine; Visit Provider Nurse Practitioner Family
DX: R91.1 Solitary pulmonary nodule (principal)
CPT/HCPCS: 71250

== ENCOUNTER → 2025-02-01 15:45 | Outpatient (BNV) | payer OTHER, SELFPAY | PROVIDERS: PCP Internal Medicine; Visit Provider Radiology Diagnostic Radiology | DX: R91.1 Solitary pulmonary nodule (principal) | CPT/HCPCS: 71250 ==

== ENCOUNTER 2025-02-11 15:42 | Outpatient (AMB) | payer OTHER, SELFPAY ==
[2025-02-11 15:47] VITALS: BP 134/78; PULSE 68; O2SAT 96; BMI 34.7
--- NOTE | 2025-02-11 15:47 | A.OFFVIS_ITS ---
Vital Signs 02/11/25 15:47 Height 5 ft 11 in Weight 249 lb 1.957 oz BMI 34.7 BP 134/78 Blood Pressure Location Lt brachial Position Sitting Pulse 68 Pulse Source Pulse Oximeter Pulse Oximetry (%) 96 Oxygen Delivery Method Room Air Intake Visit Reasons: Shortness Of Breath Pot Pusher Required: No Kick Plate Installer: Kick Plate Installer offered & declined Accompanied by: Self / Same As Patient Allergies Penicillins Allergy (Intermediate, Verified 02/11/25 15:51) RASH (in childhood) Medication List - Last Reconciled 02/11/25 by Risa Dee LPN aspirin (Ecotrin Low Strength) 81 mg PO DAILY atorvastatin 40 mg PO DAILY fluticasone furoate-vilanterol 200-25 mcg/dose (Breo Ellipta) 1 inh inhalation DAILY ibuprofen 800 mg PO TID lisinopril-hydrochlorothiazide 10-12.5 mg 1 tab PO DAILY metoprolol tartrate 25 mg PO BID HPI HPI Shortness Of Breath: Details: Fredy is a pleasant 64 year old male, former smoker, quit 30 years ago with 15+ pyh, with underlying asthma, HTN, Thoracic AA, aortic stenosis s/p aortic valve replacement 2022. At the last visit, he reported suboptimal response to Breo 100 mcg and was increased to 200 mcg. Since then he reports minimal change in dyspnea on exertion and cough however he attributes this to post nasal drip. Denies trialing nasal sprays. He denies any wheezing or chest tightness. Today he presents to review chest CT results, prior CTA revealed 4 mm pulmonary nodule RML 02/2023. He denies any visits to urgent care or hospitalizations related to respiratory distress since the last visit. [facility] Medical History (Updated 11/12/24 @ 15:25 by Alessandra Guajardo NP) Numbness Thoracic aortic aneurysm (TAA) Sciatica Cervical spinal stenosis Peyronie's disease Sleep apnea Pancreatitis (~2003) Hyperlipidemia HTN (hypertension) Aortic stenosis Surgical History History of carpal tunnel release Hx of neck surgery History of cardiac cath (~03/2023) Aortic valve replaced (~04/2023) H/O colonoscopy (~10/2022) S/P cardiac catheterization Hx laparoscopic cholecystectomy Family History Father No problems noted. 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 Review of Systems Const Denies chills, Denies excessive sweating, Denies fever(s), Denies headache(s) and Denies night sweats Eyes Denies dry eyes, Denies irritation and Denies itchy eyes ENT Reports Normal hearing present, Denies headache(s) and Reports post nasal drip Card Denies chest pain, Denies chest pain at rest, Denies chest pain with activity, Denies claudication, Denies leg edema, Reports dyspnea on exertion, Denies orthopnea and Denies paroxysmal nocturnal dyspnea Resp Denies chest congestion, Reports cough, Denies hemoptysis, Denies excessive phlegm production, Denies pain on inspiration, Denies pain with cough, Reports dyspnea on exertion, Denies stridor and Denies wheezing Musc Denies myalgias Neuro Reports Normal hearing present and Denies headache(s) Endo Denies excessive sweating Vick/Lymph Denies lymphadenopathy Aller/Immun Denies itchy eyes, Denies seasonal rhinorrhea and Denies wheezing Physical Exam Vital Signs: Last Vital Signs Pulse 68 02/11/25 15:47 BP 134/78 02/11/25 15:47 Pulse Ox 96 02/11/25 15:47 Oxygen Delivery Method Room Air 02/11/25 15:47 BMI result Body Mass Index 34.7 Const General: cooperative, healthy appearing, comfortable, no acute distress, well developed and alert Nutritional Appearance: obese Orientation/consciousness: patient oriented x3 Limitations: no limitations HEENT Head: Yes normal to inspection, Yes normocephalic and Yes atraumatic Ears: hearing grossly normal bilaterally and external ears normal Eyes General: appearance normal, both eyes and all related structures Eyelids: Yes eyelids normal Sclerae: sclerae normal EOM: EOMs intact bilaterally Neck Neck: Yes normal visual inspection and Yes no lymphadenopathy Lymphatic: no lymphadenopathy noted Chest Chest palpation & inspection: normal inspection of the chest Resp Effort & Inspection: normal respiratory effort, able to speak in complete sentences, no audible wheezes, no cough, no stridor, not tachypneic, no tripod positioning and no use of accessory muscles Auscultation: clear to auscultation bilaterally Cardio Jugular venous distension: no JVD Rate: regular rate Rhythm: regular rhythm Skin Other: warm, dry General skin exam: no rashes or lesions noted Neuro General: patient oriented x3 Cranial nerves: Yes Normal hearing present Cognition (Neuro): normal cognition Gait exam (Neuro): Normal gait present Extrem Other: trace BLE Psych Appearance: grossly normal and well kempt Speech and movement: Normal speech and movement present and Clear speech present Affect: normal affect Attitude: cooperative Thought process: Normal thought process present Thought content: Normal thought content present Insight: Good insight present (Psych) Judgement: Good judgement present (Psych) Results Reviewed Results Reviewed: [place] [address] CT Scan Report Signed Patient: Fredy Peterson MR#: [id number] : 1960 Acct:[id number] Age/Sex: 64 / M ADM Date: 02/01/25 Loc: HO.CT Attending Dr: Alessandra Guajardo NP Ordering Physician: Alessandra Guajardo NP Date of Service: 02/01/25 Procedure(s): CT chest wo IV con Accession Number(s): [id number] cc: Tonny Mcdermott MD; Alessandra Guajardo NP~ Report Number: [id number]: Total DLP = 211.00 mGy-cm CLINICAL HISTORY: R91.1 - Solitary pulmonary nodule CT CHEST WITHOUT CONTRAST Comparison: CR/SR - XR CHEST 2V - 10/19/22 15:25 EST Findings: Prominent calcific plaque in the aorta and coronary arteries. No thoracic aortic aneurysm. Median sternotomy changes with an aortic valve prosthesis. No significant pericardial effusion. No thyromegaly or mediastinal lymphadenopathy. Bilateral gynecomastia. No consolidation, pleural effusion or pneumothorax. No pulmonary mass or suspicious pulmonary nodule. Cholecystectomy. The bones are intact. Mild multilevel disc space narrowing with large flowing endplate osteophytes can be seen with DISH. IMPRESSION: 1. No suspicious pulmonary lesion. 2. No acute process. This document has been electronically signed by: Qing Gomez DO on 02/04/2025 14:04:11 Dictated By: Qing Gomez MD Signed By: <Electronically signed by Qing Gomez MD in OV> 02/04/251404 DD/ 03 TD/TT: 02/04/251403 Splunk Architect: Assessment & Plan Assessment & Plan (1) Asthma: Code(s): J45.909 - Unspecified asthma, uncomplicated Category: Medical (2) Environmental allergies: Code(s): Z91.09 - Other allergy status, other than to drugs and biological substances Category: Medical (3) SOB (shortness of breath) on exertion: Code(s): R06.02 - Shortness of breath Category: Medical (4) Pulmonary nodule: Code(s): R91.1 - Solitary pulmonary nodule Category: Medical Plan Edward reports suboptimal effect with Breo 200 mcg. Discussed trialing Trelegy however patient would like to avoid any name brand medications due to insurance coverage. Will send in Breyna and consider Incruse vs Spiriva. We did discuss the possibility of dyspnea being related to possible cardiac contribution. He is supposed to have upcoming cardiology appt and will be scheduling this after today's visit. Reviewed chest CT which revealed severe CAD, otherwise no concerning pulmonary nodules. No need for further imaging at this time. Patient also noted cough possibly related to post nasal drip, will trial Flonase. Discussed importance of increasing activity as he likely has some exercise intolerance due to deconditioning. All questions were answered and patient is in agreement of plan. Will follow up in 6-8 weeks or sooner if needed. Medications: New budesonide-formoterol 160-4.5 mcg/actuation (Breyna) 2 puffs inhalation Q12H 10.2 grams 6RF fluticasone propionate 50 mcg/actuation administer into each nostril 2 sprays intranasal DAILY 16 grams 2RF Coding Level of Care Code Est Pt Level 4 (51560) Diagnoses Asthma J45.909 Environmental allergies Z91.09 SOB (shortness of breath) on exertion R06.02 Pulmonary nodule R91.1
--- OUTSIDE RECORDS SUMMARY | 2025-02-11 18:07 | XMS_ITS | Clinical Summary ---
Author Organization [facility] Facility Address [address] [place] [address] Care Team Providers Care Eyelet Riveter Name Role Phone Unavailable Primary Care Provider [...] patient's age to complete this topic Insurance [employer] ([id number]) [employer] ([id number])
--- OUTSIDE RECORDS SUMMARY | 2025-02-11 18:08 | XMS_ITS | Patient Health Record ---
Author Organization [facility] Address [address] [place] [address] Care Team Providers Care Forestry Workers Name Role Phone Tonny Mcdermott MD Primary Care Provider Radames Sal Unavailable [phone] Allergies Allergen (clinical drug ingredient) Drug/Non Drug Allergy documented on EMR Reaction Allergy Type Onset Date Status Penicillin Unknown Drug Allergy Active Results Component Value Reference Range Notes Pathology (Not yet reviewed by provider) Interpretation: Performing Lab:[facility], [address] [place] [id number] Notes/Report: Name: Fredy Peterson Age/Sex: 64/M : 1960 Unit#: [id number] Attend Dr: Radames Molina MD Re11/09/24 Status : [facility] Location: [facility] Disch: SPEC : [id number] RECD : 11/09/24 STATUS: CHAPITO LÓPEZ NUM: [id number] GABI: 11/09/24 [facility] DR: Radames Molina MD ENTERED: 11/09/24- 43 [...] To: Tonny Mcdermott MD [facility] [address] [place] [address] Drive [address] [place], [place] [phone] Radames Molina MD [facility] [address] [place] [address] [address] [place] [address] Signed (si gnature on file) Bernadette Allerton 11/15/24 1537 END OF REPORT Reason For [...] Problem Status W/U Status Risk Notes Problem [id number] Encounter for screening for malignant neoplasm of colon (Z12.11) Active confirmed Problem History of adenomatous polyp of colon (529200488) History of adenomatous polyp of colon (Z86.010) Active confirmed Problem Diverticular disease of colon (976381437) Diverticulosis of large intestine without perforation or abscess without bleeding (K57.30) Active confirmed Problem Long-term current use of antiplatelet drug (589509108122127 ) correction (current) use of aspirin (Z79.82) Active confirmed Problem 709070062 Preprocedural examination (Z01.818) Active confirmed Vital Signs Blood pressure diastolic 00 mm Hg 07/10/2024 Height 71 in 07/10/2024 Blood pressure systolic 00 mm Hg 07/10/2024 Weight 249 lbs 07/10/2024 BMI 34.72 kg/m2 07/10/2024 Encounters Encounter Location Date Provider Diagnosis [facility] [address] [place] [phone] 11/09/2024 Radames Molina Colon cancer screeni ng Z12.11 ; Colon polyps K63.5 ; Diverticulosis of large intestine without perforation or abscess without bleeding K57.30 and Other hemorrhoids K64.8 [facility] [address] [facility] [address] [place] [address] 07/10/2024 Radames Molina Encounter for screen ing for malignant neoplasm of colon Z12.11 ; Preprocedural examination Z01.818 ; History of adenomatous polyp of colon Z86.010 and 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 of aspirin Z79.82 Assessments Encounter [...] 11/09/2024 Other hemorrhoids (ICD-10 - K64.8) 07/10/2024 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 of aspirin (ICD-10 - Z79.82) [...] Coverage End Date Brock MENJIVAR [address] [place] [address] [id number] FREDY PETERSON Self - patient is the insured Medical (General) History Medical History History ICD Code Colonoscopy 09-02-2006 for ev aluation of Heme + stool---negative except for internal hemorrhoids Hyperlipidemia Hypertension History of pancreatitis in 2003 in relat ion to elevated triglycerides Denies NE,DM,CVA,Lung disease,renal dise ase History of sleep apnea--used CPAP--resolved with weight loss, but has gained 30 # bsck Peyronie's disease Colonoscopy 07/2017 with 3 tubular adenom as removed Cardiac catheterization-normal coronarie s but moderate aortic stenosis Surgical History Surgery Date(Month/Year) Cholecystectomy Aortic valve replacement--bovine valve 0 05/03/2023 Neck surgery scheduled for July of [address] Oliveira
--- OUTSIDE RECORDS SUMMARY | 2025-02-11 18:08 | XMS_ITS ---
Author Organization Tonny Mcdermott MD Address [address] [place], [place] [phone] Care Team Providers Care Bronc Breaker Name Role Phone BaldemarTonny Primary Care Provider Allergies Allergen (clinical drug [...] > THE REFERRAL HAS BEEN FAXED TO [facility] PULMONARY[facility]audette Patti A 11/15/2024 08:02:50 AM EST [...] Date Provider Diagnosis Tonny Mcdermott MD [address] [facility] [address] [place], [place] [phone] 09/24/2024 Tonny Mcdermott H/O aortic valve replacement Z95.2 ; Cervical disc disease M50.90 and Shortness of breath on exertion R06.02 Assessments Encounter Date Diagnosis (ICD Code) Assessment Notes Treatment Notes Treatment Clinical Notes Section Notes 09/24/2024 H/O aortic valve replacement (ICD-10 - Z95.2) need the results of echo done by dr kam this month/ REQUEST MADE TO HIM @ [facility] 09/24/2024 Cervical disc disease (ICD-10 - M50.90) seems that he may be having trouble with disc still 09/24/2024 Shortness of breath on exertion (ICD-10 - R06.02) at times gets wheezing and tried inhaler with no improvemnt/ referrlal to [facility] pulmonary Plan Of Treatment Treatment Notes Assessment Notes H/O aortic valve replacement need the re sults of echo done by dr kam this month/ REQUEST MADE TO HIM @ [facility] Cervical disc disease seems that he may be having trouble with disc still Shortness of breath on exertion at times gets wheezing and tried inhaler with no improvemnt/ referrlal to [facility] pulmonary Referrals Referral Date Details 09/24/2024 09/24/2024, SHORTNES S OF BREATH ON EXERTION, MILKA PROCTOR Next Appt Details Follow Up: 2 Months, Reason: Provider Name:Tonny Wright isma, 02/25/2025 07:45:00 AM, [address], [address], [place], [place], [phone], Provider Name:Tonny Ranjit Isabellchristiano isma, 03/04/2025 04:00:00 PM, [address], [address], [place], [place], [phone], Progress Notes * Fredy PETERSON WDOB: [birth year] (64 yo M)Acc No.[id number]:09/24/2024 Progress Notes Patient:?Fredy Peterson W Provider:?Tonny Mcdermott MD :1960???Age:64 Y???Sex:Male Paramjit e:09/24/2024 Address:[address] [place], [place] [phone] Subjective: * Chief Complaints: * ???6 MO [...] tried inhaler with no improvemnt/ referrlal to [facility] pulmonary? Referral To:MILKA PROCTOR??Pulmonary Diseases ?Reason:SHORTNESS OF BREATH ON EXERTION * Procedure Codes:? * Follow Up:?2 Months * * Sign off status: Completed true * Provider:?Tonny Mcdermott MD Date:?1 Generated for Jose crabtree/Chela/eTransmitting on:?02/11/2025 06:07 PM EDT History and Physical Notes * HPI (History [...]
--- OUTSIDE RECORDS SUMMARY | 2025-02-11 18:08 | XMS_ITS ---
Author Organization Tonny Mcdermott MD Address [address] [place], [place] [phone] Care Team Providers Care Assembler 1St Shift Name Role Phone Tonny Mcdermott Primary Care [...] kg/m2 12/10/2024 weight is down 6 pounds [facility] e 10-28-24 Encounters Encounter Location Date Provider Diagnosis Tonny Mcdermott MD [address] [place] [phone] 12/10/2024 Tonny Mcdermott Essential hypertension I10 ; [...] of the ct chest from pulmonry at [facility] Plan Of Treatment Treatment Notes Assessment Notes Essential hypertension well controlled H/O aortic valve replacement still short of breath Cervical disc disease has had sugrgery Other get copy of the ct c hest from pulmonry at [facility] Next Appt Details Provider Name:Tonny ashby, 02/25/2025 07:45:00 AM, [address], [address], [place], [place], [phone], Provider Name:Tonny ashby, 03/04/2025 04:00:00 PM, [address] [facility], [address], [place], [place], [phone], Progress Notes * Fredy PETERSON WDOB: [birth year] (64 yo M)Acc No.[id number]:12/10/2024 Progress Notes Patient:?Fredy Peterson Provider:?Tonny Mcdermott MD :1960???Age:64 Y???Sex:Male Paramjit e:12/10/2024 Address:[place], [place] Subjective: * Chief Complaints: * ???2 MO [...] Hospitalization/Major Diagno stic Procedure:? * Medications:?TakingBreo Chelly scow captain 100-25 MCG/ACT Aerosol Powder Breath Activated [...] of the ct chest from pulmonqry at [facility]?? * Immunizations:? Influenza High Dose (Not administered - Refused: Patient decision) * Procedure Codes:? * * Sign off status: Completed true * Provider:?Tonny Mcdermott MD Date:?0 12/10/2024 Generated for Jose cratbree/Chela/eTransmitting on:?02/11/2025 06:08 PM EDT History and Physical Notes * [...]
--- OUTSIDE RECORDS SUMMARY | 2025-02-11 18:08 | XMS_ITS ---
Author Organization [facility] Address [address] [place] [address] Care Team Providers Care Centralized Traffic Control Operator Name Role Phone Tonny Mcdermott MD Primary Care Provider Radames Sal [phone] Allergies Allergen (clinical drug ingredient) Drug/Non Drug [...] 07/10/2024 Encounters Encounter Location Date Provider Diagnosis [facility] [address] [place] [address] 07/10/2024 Radames Molina Encounter for screen ing for malignant neoplasm of colon Z12.11 ; Preprocedural examination Z01.818 ; History of adenomatous polyp of colon Z86.010 and correction (current) use of aspirin Z79.82 Assessments Encounter [...] keep you advised of his progress. 07/10/2024 supervisor intermediates (current) use of aspirin (ICD-10 - Z79.82) [...] colonoscopy---we will get a clearance from Dr. Gatyan for the colonoscopy, stoppage of aspirin, and ? of need for antibotics for the valve replacement Future Test Test Name Order Date COLONOSCOPY 07/10/2024 Next Appt Details Follow Up: prn, Reason: Progress Notes * ANISHAFREDY Castañeda WDOB: [birth year] (64 yo M)Acc No.[id number]:07/10/2024 Progress Notes Patient:?FREDY ORELLANA Provider:?Radames Molina MD :1960???Age:63 Y???Sex:Male Paramjit e:07/10/2024 [facility] [place] Pcp:Tonny Mcdermott MD Subjective: * Chief Complaints: [...] . 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 ???Former smoker over 15 years ago; no [...] Z12.11?3.?History of adenomatous polyp of colon - Z86.010?4.?supervisor intermediates (current) use of aspirin - Z79.82? Overall, [...] Procedure Codes:?3017F COLOR ECTAL CA SCREEN DOC LCK4012M TOBACCO NON-WOUPV4606 BP SCR NOT PRFRM REC REASON NOS * Preventive Medicine:? ??Counseling:?Care goal follow-up plan:?Above Normal BMI Follow-up?Giving encouragement to exercise,?BMI management provided?Yes.? ??Screenings:?Fall Risk Screening?Fall Risk Assessment:?No falls in the past year.? * Follow Up:?prn * * Sign off status: Completed true * Provider:?Radames Molina MD Date:? 024 Generated for Jose crabtree/Chela/Jeffitting on:?02/11/2025 06:08 PM EDT History and Physical [...]
--- OUTSIDE RECORDS SUMMARY | 2025-02-11 18:08 | XMS_ITS ---
Author Organization [facility] Address [address] [place] [address] Care Team Providers Care Test Evaluator Name Role Phone Tonny Mcdermott MD Primary Care Provider UnaRadames Borrego Unavailable [phone] REASON FOR VISIT screening,hx polyps Problems Problem Type SNOMED Code ICD Code Onset Dates Problem Status W/U Status Risk Notes Problem Diverticular disease of colon (950078723) Diverticulosis of large intestine without perforation or abscess without bleeding (K57.30) Active confirmed Encounters Encounter Location Date Provider Diagnosis [facility] Out[place] [address] [place] [phone] 11/09/2024 Radames Molina Colon cancer scree simón [...] YONATAN ORELLANA WDOB: [birth year] (64 yo M)Acc No.[id number]:11/09/2024 COLON WITH MAC Patient:?YONATAN ORELLANA Provider:?Radames Molina MD :1960???Age:64 Y???Sex:Male Paramjit e:11/09/2024 Address: [facility] Pcp:Tonny Mcdermott MD Subjective: * Chief Complaints: * ???1. Screening,hx polyps. * Medical History:? Objective: * Vitals:? Assessment: * Assessment: 1.?Colon cancer screening - Z12.11 (Primary)???2.?Colon polyps - K63.5???3.?Diverticulosis of large intestine without perforation or abscess without bleeding - K57.30???4.?Other hemorrhoids - K64.8??? Plan: * Treatment: * Procedure Codes:?80368 COLON OSCOPY AND BIOPSY, Modifiers: 33 * * The named appointment provid er may or may not be the originator of this progress note, and it is not deemed complete until electronically signed by the appointment provider. Sign off status: Pending * Provider:?Radames Molina MD Date:? 024 Generated for Jose crabtree/Chela/eTransmitting on:?02/11/2025 06:07 PM EDT
--- OUTSIDE RECORDS SUMMARY | 2025-02-11 18:08 | XMS_ITS ---
Author Organization Tonny Mcdermott MD Address [address] [place] [phone] Care Team Providers Care Youth Specialist Name Role Phone Baldemar Tonny Primary Care Provider [phone] REASON FOR VISIT FASTING LIPIDS Encounters Encounter Location Date Provider Diagnosis Tonny Mcdermott MD [address] [place] [phone] 08/31/2024 Tonny Mcdermott Hyperlipidemia, unspecified E78.5 and [...] Next Appt Details Provider Name:Tonny Wright ier, 02/25/2025 07:45:00 AM, [address], [address], [place], [phone], Provider Name:Tonny Wright ier, 03/04/2025 04:00:00 PM, [address], [address], [place], [phone], Progress Notes * Fredy PETERSON WDOB: [birth year] (64 yo M)Acc No.[id number]:08/31/2024 Progress Note Patient:?Fredy PETERSON W Provider:?Tonny Mcdermott MD :1960???Age:64 Y???Sex:Male Paramjit e:08/31/2024 Address:[address] [place] [address] [place] Subjective: * Chief Complaints: * ???1. FASTING [...] MD Date:?1 Generated for Jose crabtree/Chela/eTransmitting on:?02/11/2025 06:08 PM EDT
== END 2025-02-11 16:17 | disposition home or self-care (01) ==
LOC: HO.HPS 15:43
PROVIDERS: PCP Internal Medicine; Visit Provider Nurse Practitioner Family
DX: J45.909 Unspecified asthma, uncomplicated (principal); Z91.09 Other allergy status, other than to drugs and biological substances; R06.02 Shortness of breath; R91.1 Solitary pulmonary nodule
CPT/HCPCS: 99214

== ENCOUNTER 2025-02-23 07:48 | Outpatient (REF) | payer OTHER, SELFPAY ==
[2025-02-23 11:44] LABS: MANUAL DIFF FLAG NO
[2025-02-23 11:51] LABS: Basophils Absolute Auto 0.1 X10*3/uL (0.0-0.2); Basophils Percent Auto 0.9 % (0-2); Eosinophils Absolute Auto 0.4 X10*3/uL (0.0-0.4); Eosinophils Percent Auto 5.2 % (0-4); Hematocrit 40.8 % (42.0-52.0); Hemoglobin 14.1 g/dl (14.0-18.0); Imm Gran Abs Auto 0.03 X10*3/uL (0.00-0.03); Imm Gran Pct Auto 0.4 % (0.0-0.4); Lymphocytes Absolute Auto 1.3 X10*3/uL (1.2-4.9); Lymphocytes Percent Auto 19.1 % (20-40); Mean Corpuscular HGB Conc 34.6 g/dl (31.0-36.0); Mean Corpuscular Hemoglobin 31.4 pg (27.0-33.0); Mean Corpuscular Volume 90.9 fL (80.0-98.0); Mean Platelet Volume 10.9 fL (9.4-12.4); Monocytes Absolute Auto 0.6 X10*3/uL (0.1-1.2); Monocytes Percent Auto 9.1 % (2-11); Neutrophils Absolute Auto 4.5 x10*3/uL (2.0-8.3); Neutrophils Percent Auto 65.3 % (45-73); Platelet Count 152 X10*3/uL (160-400); Red Blood Count 4.49 X10*6/uL (4.60-5.80); Red Cell Distribution Width 12.9 % (11.0-16.0); White Blood Count 6.9 X10*3/uL (4.8-10.8)
[2025-02-23 11:52] LABS: Appearance Urine Clear; Color Urine Dark Yellow; Glucose Urine UA Negative (Negative); Leukocyte Esterase Urine Negative (Negative); Nitrite Urine Negative (Negative); PH 5.5 (5.0-9.0); Urine Blood Negative (Negative); Urine Ketones Negative (Negative); Urine Protein Trace mg/dL (Neg-Trace)
[2025-02-23 12:01] LABS: Estimated Average Glucose 120 mg/dL; Hemoglobin A1C 149.2329 umol/L; Hemoglobin A1c % 5.8 % (<6.0); Total Hemoglobin (HGBA1C) 3720.7544 umol/L
[2025-02-23 12:13] LABS: Creatinine Urine 169.81 mg/dL; Microalbum/Creatinine Ratio Ur 58.3 ug/mg cr (<30)
[2025-02-23 12:14] LABS: Alanine Aminotransferase 31 U/L (0-40); Albumin Level 3.9 g/dL (3.5-5.0); Alkaline Phosphatase 81 U/L (39-117); Anion Gap 9 (12-20); Aspartate Amino Transferase 40 U/L (5-37); Bilirubin Total 0.9 mg/dL (0.0-1.0); Blood Urea Nitrogen 15 mg/dL (9-16); Carbon Dioxide 28 mmol/L (22-29); Chloride 105 mmol/L (96-108); Cholesterol 133 mg/dL (<200); Estimated Glomerular Filt Rate > 60; Glucose Random 125 mg/dL (60-115); HDL Cholesterol 57 mg/dL (>40); LDL Cholesterol Calculated 66 mg/dL (<100); Potassium 3.8 mmol/L (3.3-5.1); Sodium 138 mmol/L (135-145); Total Protein 6.5 g/dL (6.5-8.0); Triglycerides 52 mg/dL (<150)
[2025-02-23 12:31] LABS: PSA,Total (Free>4and<10) 0.78 ng/mL (0.00-4.00)
== END 2025-02-23 07:49 | disposition home or self-care (01) ==
LOC: HO.HMGCLDS 07:48
PROVIDERS: PCP Internal Medicine; Visit Provider Internal Medicine
DX: Z00.00 Encounter for general adult medical examination without abnormal findings (principal); E78.5 Hyperlipidemia, unspecified; R73.03 Prediabetes; I10 Essential (primary) hypertension; N40.0 Benign prostatic hyperplasia without lower urinary tract symptoms; Z12.5 Encounter for screening for malignant neoplasm of prostate
CPT/HCPCS: 36415; 80053; 80061; 81003; 82043; 82570; 83036; 84153; 85025

== ENCOUNTER 2025-05-06 16:11 | Outpatient (AMB) | payer OTHER, SELFPAY ==
[2025-05-06 16:15] VITALS: BP 138/70; PULSE 60; O2SAT 96; BMI 34.3
--- NOTE | 2025-05-06 16:15 | MHC.OFFVIS ---
Vital Signs 05/06/25 16:15 Height 5 ft 11 in Weight 245 lb 13.047 oz BMI 34.3 BP 138/70 Blood Pressure Location Rt brachial Position Sitting Pulse 60 Pulse Source Pulse Oximeter Pulse Oximetry (%) 96 Oxygen Delivery Method Room Air Intake Visit Reasons: Shortness Of Breath Allergies Penicillins Allergy (Intermediate, Verified 05/06/25 16:17) RASH (in childhood) HPI HPI Shortness Of Breath: Details: Fredy is a pleasant 64 year old male, former smoker, quit 30 years ago with 15+ pyh, with underlying asthma, HTN, Thoracic AA, aortic stenosis s/p aortic valve replacement 2022. At the last visit, he reported suboptimal response with to Breo 100 mcg and was increased to high dose ICS/LABA. Unfortunately he continues to report minimal change in symptoms. He does have cardiac history, prior CT revealed severe CAD which may be a contributing factor and has upcoming echo scheduled as well as cardiology appt. Prior PFT did reveal significant response to bronchodilator and encouraged use of albuterol MDI p.r.n.He denies any visits to urgent care or hospitalizations related to respiratory distress since the last visit. [facility] Medical History (Updated 05/06/25 @ 16:36 by Alessandra Guajardo NP) Numbness Thoracic aortic aneurysm (TAA) Sciatica Cervical spinal stenosis Peyronie's disease Sleep apnea Pancreatitis (~2003) Hyperlipidemia HTN (hypertension) Aortic stenosis Surgical History History of carpal tunnel release Hx of neck surgery History of cardiac cath (~03/2023) Aortic valve replaced (~04/2023) H/O colonoscopy (~10/2022) S/P cardiac catheterization Hx laparoscopic cholecystectomy Family History Father No problems noted. 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 Physical Exam Vital Signs: Last Vital Signs Pulse 60 05/06/25 16:15 BP 138/70 05/06/25 16:15 Pulse Ox 96 05/06/25 16:15 Oxygen Delivery Method Room Air 05/06/25 16:15 BMI result Body Mass Index 34.3 Assessment & Plan Assessment & Plan (1) Asthma: Code(s): J45.909 - Unspecified asthma, uncomplicated Category: Medical (2) Environmental allergies: Code(s): Z91.09 - Other allergy status, other than to drugs and biological substances Category: Medical (3) SOB (shortness of breath) on exertion: Code(s): R06.02 - Shortness of breath Category: Medical (4) Pulmonary nodule: Code(s): R91.1 - Solitary pulmonary nodule Category: Medical Plan Fredy reports suboptimal effect with Breyna 160 mcg. Discussed trialing Trelegy however patient would like to avoid any name brand medications due to insurance coverage. We did discuss the possibility of dyspnea being related to possible cardiac contribution, will send for BNP to further evaluate as well as CBC as he expressed concerns of anemia. He has upcoming echo and may need stress test to rule out cardiac component. All questions were answered and patient is in agreement of plan. Will follow up in 6-8 weeks or sooner if needed. Orders: Orders B Type Natriuretic Peptide 05/06/25 R06.00 - Dyspnea, unspecified Complete Blood Count Auto Diff 05/06/25 R06.00 - Dyspnea, unspecified Coding Level of Care Code Est Pt Level 3 (56015) Diagnoses Asthma J45.909 Environmental allergies Z91.09 SOB (shortness of breath) on exertion R06.02 Pulmonary nodule R91.1
--- OUTSIDE RECORDS SUMMARY | 2025-05-06 17:40 | XMS_ITS | Clinical Summary ---
Author Organization [facility] Facility Address [address] [place], [place] [address]ERT [address] Care Team Providers Care Art Historian Name Role Phone Unavailable Primary Care Provider [...] Colorectal Cancer Screening: Sigmoidoscopy 2007 Pneumococcal Vaccine: 50+ Ye ars (1 of 1 - PCV) 2008 Influenza Vaccine (Season Ended) 2025 Hepatitis B Vaccine Aged Out No longe r eligible based on patient's age to complete this topic Insurance [employer] ([id number]) [employer] ([id number])
== END 2025-05-06 16:41 | disposition home or self-care (01) ==
LOC: HO.HPS 16:12
PROVIDERS: PCP Internal Medicine; Visit Provider Nurse Practitioner Family
DX: J45.909 Unspecified asthma, uncomplicated (principal); Z91.09 Other allergy status, other than to drugs and biological substances; R06.02 Shortness of breath; R91.1 Solitary pulmonary nodule
CPT/HCPCS: 99213

== ENCOUNTER → 2025-05-06 16:11 | Outpatient (BNVA) | payer OTHER, SELFPAY | PROVIDERS: PCP Internal Medicine; Visit Provider Nurse Practitioner Family | DX: Z91.09 Other allergy status, other than to drugs and biological substances (principal); R91.1 Solitary pulmonary nodule ==

== ENCOUNTER 2025-05-11 10:43 | Outpatient (REF) | payer OTHER, SELFPAY ==
[2025-05-11 13:42] LABS: MANUAL DIFF FLAG NO
[2025-05-11 13:44] LABS: Basophils Absolute Auto 0.1 X10*3/uL (0.0-0.2); Basophils Percent Auto 1.2 % (0-2); Eosinophils Absolute Auto 0.2 X10*3/uL (0.0-0.4); Hematocrit 37.4 % (42.0-52.0); Hemoglobin 13.3 g/dl (14.0-18.0); Imm Gran Abs Auto 0.02 X10*3/uL (0.00-0.03); Imm Gran Pct Auto 0.4 % (0.0-0.4); Mean Corpuscular HGB Conc 35.6 g/dl (31.0-36.0); Mean Corpuscular Hemoglobin 32.2 pg (27.0-33.0); Mean Corpuscular Volume 90.6 fL (80.0-98.0); Mean Platelet Volume 10.4 fL (9.4-12.4); Monocytes Absolute Auto 0.7 X10*3/uL (0.1-1.2); Monocytes Percent Auto 13.3 % (2-11); Neutrophils Absolute Auto 3.2 x10*3/uL (2.0-8.3); Neutrophils Percent Auto 62.1 % (45-73); Platelet Count 143 X10*3/uL (160-400); Red Blood Count 4.13 X10*6/uL (4.60-5.80); Red Cell Distribution Width 12.6 % (11.0-16.0); White Blood Count 5.2 X10*3/uL (4.8-10.8)
[2025-05-11 14:12] LABS: B Type Natriuretic Peptide 104 pg/mL (<100)
[2025-05-14 10:29] LABS: Immunoglobulin E 12 kU/L (<OR=114)
== END 2025-05-11 10:44 | disposition home or self-care (01) ==
LOC: HO.HMGCLDS 10:43
PROVIDERS: PCP Internal Medicine; Visit Provider Nurse Practitioner Family
DX: R06.00 Dyspnea, unspecified (principal); Z91.09 Other allergy status, other than to drugs and biological substances
CPT/HCPCS: 36415; 82785; 83880; 85025

== ENCOUNTER → 2025-06-06 14:48 | Outpatient (REF) | payer OTHER, SELFPAY ==
--- OUTSIDE RECORDS SUMMARY | 2024-11-09 03:30 | XMS_ITS ---
Author Organization [facility] [place] Address [address] [place] [address] Care Team Providers Care Hand Expansion Envelope Maker Name Role Phone Tonny Mcdermott MD Primary Care Provider Radames Sal [phone] REASON FOR VISIT screening,hx polyps Problems Problem Type SNOMED Code ICD Code Onset Dates Problem Status W/U Status Risk Notes Problem Diverticulosis o f large intestine without perforation or abscess without bleeding (K57.30) Active confirmed Encounters Encounter Location Date Provider Diagnosis [facility] [place] [address] [place] [phone] 11/09/2024 Radames Molina Colon cancer scree simón Z12.11 ; Colon polyps K63.5 ; Diverticulosis of large intestine without perforation or abscess without bleeding K57.30 and Other hemorrhoids K64.8 Assessments Encounter Date Diagnosis (ICD Code) Assessment Notes Treatment Notes Treatment Clinical Notes Section Notes 11/09/2024 Colon cancer screening (ICD-10 - Z12.11) 11/09/2024 Colon polyps (ICD-10 - K63.5) 11/09/2024 Diverticulosis of large intestine without perforation or abscess without bleeding (ICD-10 - K57.30) 11/09/2024 Other hemorrhoids (ICD-10 - K64.8) Plan Of Treatment No Information Progress Notes * YONATAN ORELLANA WDOB: [birth year] (64 yo M)Acc No.[id number]:11/09/2024 COLON WITH MAC Patient: YONATAN SÁNCHEZ Provider: Severino Molina MD :1960 A ge:64 Y S ex:Male Date:11/09/2024 Address:[place], [place] Pcp:Tonny Mcdermott MD Subjective: * Chief Complaints: * 1 . Screening,hx polyps. * Medical History: Objective: * Vitals: Assessment: * Assessment: 1. C olon cancer screening - Z12.11 (Primary) 2 . C olon polyps - K63.5? 3. D iverticulosis of large intestine without perforation or abscess without bleeding - K57.30 4 . O ther hemorrhoids - K64.8 Plan: * Treatment: * Procedure Codes: 4 5380 COLONOSCOPY AND BIOPSY, Modifiers: 33 * * The named appointment provid er may or may not be the originator of this progress note, and it is not deemed complete until electronically signed by the appointment provider. Sign off status: Pending * Provider: Severino Molina MD Date: 1 01/10/2024 Generated for Jose crabtree/Chela/Gilbertosmitting on: 0 06/06/2025 02:49 PM EDT
--- OUTSIDE RECORDS SUMMARY | 2025-06-06 14:49 | XMS_ITS | Clinical Summary ---
Author Organization [facility] Facility Address [address] [place], [place] [address] [address] Care Team Providers Care Trimming Inspector Name Role Phone Unavailable Primary Care Provider [...] of 1 - PCV) 2008 Influenza Vaccine (#1) 2025 Hepatitis B Vaccine Aged Out No longe r eligible based on patient's age to complete this topic Insurance [employer] ([id number]) [employer] ([id number])
--- NOTE | 2025-06-06 14:50 | CA_ITS ---
Transthoracic Echocardiogram Patient (Last, First, Middle): Fredy Peterson W Gender: Male Date of : 1960 Age: 64 Procedure Date: 06/06/2025 Procedure Type: Transthoracic Echocardiogram Location: OP Height: 180.34 cm Weight: 108.86 kg BSA: 2.28 m2 Heart Rate: bpm BP: 148 / 70 mmHg Senior Stock Plan Administrator: TO Referring MD: Eric Gaytan MD Handtools Repairer: Eric Gaytan MD Symptoms: R06.00 - Dyspnea, unspecified Study Quality: Adequate ECG Rhythm: Sinus Conclusions: - 1. Normal LV ejection fraction of 65-70% with elevated filling pressures 2. Mildly dilated left atrium 3. Normally function bioprosthetic aortic valve with mean gradient of 14 mm Hg 4. Normal RV systolic pressure 5. Mildly dilated ascending aorta at 4.1 cm 6. No gross pericardial effusion Findings Left Ventricle Normal left ventricular size and systolic function. There is mildly increased left ventricular wall thickness. The visually estimated ejection fraction is between 65-70%. Spectral Doppler is indicative of an impaired relaxation filling pattern. Elevated filling pressures. Right Ventricle Normal right ventricular cavity size and systolic function. Atria The left atrium is mildly dilated. There is no evidence of interatrial shunt. The right atrium is normal in size. Aortic Valve A bioprosthetic aortic valve is present. The prosthetic aortic valve appears to be functioning normally. The mean gradient is 14 mmHg. There is no aortic valve regurgitation. Mitral Valve There is mild anterior mitral leaflet thickening. There is mild mitral annular calcification. There is trace mitral valve regurgitation. There is no mitral valve stenosis. Pulmonic Valve The pulmonic valve is likely normal. Tricuspid Valve Normal tricuspid valve structure. There is mild tricuspid valve regurgitation. The right ventricular systolic pressure is normal. The right ventricular systolic pressure is 28 mmHg. Normal right atrial pressure. There is no evidence of pulmonary hypertension. Great Vessels The pulmonary artery was not well visualized. There is mild dilatation of the ascending aorta measuring 4.10 cm. Venous The inferior vena cava is normal in size and collapses greater than 50% with inspiration. Pericardium/Pleural There is no evidence of pericardial effusion. Prior Study Comparison No significant change compared to prior study dated: 06/08/2024. Measurements 2D Linear Measurements IVSd: 1.34 0.6-0.9/0.6-1.0 cm LVIDd: 4.86 3.9-5.3/4.2-5.9 cm LVIDd Index: 2.13 2.4-3.2/2.2-3.1 cm/m2 LVIDs: 2.83 2.0-3.6 cm LVPWd: 1.10 0.7-1.1 cm LA Diam: 4.90 2.7-3.8/3.0-4.0 cm LAIDs Index: 2.15 1.5-2.3 cm/m2 LV Mass: 285.19 67-162/88-224 g LV Mass Index: 125.09 43-95/49-115 g/m2 LVOT Diam: 2.20 3.0+(-)1.3 cm 2D Systolic Function EF 4C: 66.40 >55% EF 2C: 65.10 >55% EF BiP: 66.60 >55% Mitral Valve MV Pk E: 1.16 MV PK A: 1.11 MV Decel Time: 301.00 E/A: 1.00 E'Lateral: 5.11 E'Medial: 4.68 E/E' Med: 24.80 E/E' Lat: 22.70 PHT: 88.00 MVA PHT: 2.50 Decel Scott: 3.85 Aortic Valve AoV Pk Hua: 2.48 AoV Mn Hua: 1.76 AoV VTI: 0.65 AoV Pk Grad: 25.00 Aov Mn Grad: 14.00 NAS Cont.VTI: 1.95 LVOT LVOT Pk Hua: 1.33 LVOT Mn Hua: 0.92 LVOT VTI: 0.33 LVOT Pk Grad: 7.00 LVOT Mn Grad: 4.00 LVOT Diam: 2.20 LVOT Area: 3.80 Diastolic Function MV Pk E: 1.16 MV Pk A: 1.11 E/A: 1.00 E'Medial: 4.68 E/E' Med: 24.80 E' Laterial: 5.11 E/E' Lat: 22.70 Right Ventricle TAPSE (mm): 18.30 TVS' Hua: 10.80 Tricuspid Valve TR Pk Hua: 2.50 TR Pk Grad: 25.00 RA Press: 3.00 RVSP: 28.00 Great Vessels Aorta Ao Asc: 4.10 2.1-3.4 cm Updated in Other Vendor System with Status of Final Eric Gaytan MD electronically signed on 06/06/2025 4:20:09 PM with status of Final
--- OUTSIDE RECORDS SUMMARY | 2025-06-06 14:50 | XMS_ITS | Patient Health Record ---
Author Organization [facility] Address [address] [place] [address] Care Team Providers Care Tomato Pulper Operator Name Role Phone Tonny Mcdermott MD Primary Care Provider Deborah Winston Unavailable [phone] Allergies Allergen (clinical drug ingredient) Drug/Non Drug Allergy documented on EMR Reaction Allergy Type Onset Date Status Penicillin rash Drug Allergy Active Reason For Referral No Information Medications Medication SIG (Take, Route, Frequency, Duration) Notes Start Date End Date Status Atorvastatin Calcium 40 MG 1 tablet Oral ly Once a day; Duration: 30 day(s) Active Lisinopril-hydroCHLOROthiaz carmencita 10-12.5 MG 1 tablet Orally Once a day; Duration: 30 day(s) Active Social History Alcohol Screen Question Answer Notes Did you have a drink containing alcohol in the p ast year? No Points 0 Interpretation Negative Problems No Known Problems Plan Of Treatment Pending Test Test Name Order Date [id number] NAIL, 6 OR MORE 01/24/2012 [id number] NAIL, 6 OR MORE 10/04/2013 [id number] Plate 01/24/2012 34230- Debride <25 sq cm 01/24/2012 10013- Debride <25 sq cm 02/21/2012 28973- Debride <25 sq cm 07/17/2012 54406- Debride <25 sq cm 10/04/2013 Insurance Providers Payer Name Payer Address Payer Phone Subscriber Number Group Number Insured Name Patient Relationship to Insured Coverage Start Date Coverage End Date [facility]-[id number] [address] [address] [place], [place] [id number] [phone] [id number] Fredy Peterson Self - patient is the insured 0 Medical (General) History Medical History History ICD Code hypertension Cholesterol Surgical History Surgery Date(Month/Year) Gallbladder removal 2015
== END ==
LOC: HO.CARD 14:48
PROVIDERS: PCP Internal Medicine; Visit Provider Internal Medicine Cardiovascular Disease
DX: R06.00 Dyspnea, unspecified (principal); I25.10 Atherosclerotic heart disease of native coronary artery without angina pectoris; I71.20 Thoracic aortic aneurysm, without rupture, unspecified
CPT/HCPCS: 93306

== ENCOUNTER → 2025-06-06 14:50 | Outpatient (BNV) | payer OTHER, SELFPAY | PROVIDERS: PCP Internal Medicine; Visit Provider Internal Medicine Cardiovascular Disease | DX: R06.00 Dyspnea, unspecified (principal) | CPT/HCPCS: 93306 ==

== ENCOUNTER 2025-07-02 13:47 | Outpatient (AMB) | payer OTHER, SELFPAY ==
--- OUTSIDE RECORDS SUMMARY | 2024-11-09 03:30 | XMS_ITS ---
Author Organization [facility] Address [address] [place] [address] Care Team Providers Care Resume Writer Name Role Phone Tonny Mcdermott MD Primary Care Provider Radames Sal Unavailable [phone] REASON FOR VISIT screening,hx polyps Problems Problem Type SNOMED Code ICD Code Onset Dates Problem Status W/U Status Risk Notes Problem Diverticular disease of colon (145397410) Diverticulosis of large intestine without perforation or abscess without bleeding (K57.30) Active confirmed Encounters Encounter Location Date Provider Diagnosis [facility] [place] [address] [place] [phone] 11/09/2024 Radames Molina Colon cancer scree simón [...] YONATAN ORELLANA WDOB: [birth year] (64 yo M)Acc No.[id number]:11/09/2024 COLON WITH MAC Patient: YONATAN SÁNCHEZ Provider: Severino Molina MD :1960 A ge:64 Y S ex:Male Date:11/09/2024 Address:[place], [place] Pcp:Tonny Mcdermott MD Subjective: * Chief Complaints: [...] Pending * Provider: Severino Molina MD Date: 01/10/2024 Generated for Jose crabtree/Chela/Gilbertosmitting on: 0 07/02/2025 02:29 PM EDT
--- NOTE | 2025-07-02 13:56 | MHC.OFFVIS ---
Vital Signs 07/02/25 13:57 Height 5 ft 11 in Weight 244 lb 11.41 oz BMI 34.1 BP 112/80 Blood Pressure Location Lt brachial Position Sitting Pulse 60 Intake Visit Reasons: Follow up after echo Intake Note: Follow-up with ekg after echo c/o fatigue, pain , no energy Griddle Cook Required: No Allergies Penicillins Allergy (Intermediate, Verified 05/06/25 16:17) RASH (in childhood) Medication List - Last Reconciled 07/02/25 by Eric Gaytan MD aspirin (Ecotrin Low Strength) 81 mg PO DAILY Held on 08/16/24. Instructions: Resume on 08/23/24. You may resume 7 days after surgery atorvastatin 40 mg PO DAILY budesonide-formoterol 160-4.5 mcg/actuation (Breyna) 2 puffs inhalation Q12H fluticasone propionate 50 mcg/actuation (Flonase Allergy Relief) 1 spray intranasal DAILY ibuprofen 800 mg PO TID lisinopril-hydrochlorothiazide 10-12.5 mg 1 tab PO DAILY metoprolol tartrate 25 mg PO BID HPI Comments Details: Ed comes for follow-up. Continues to have symptoms of fatigue and tiredness and muscle aches. Also complains of nocturnal calf cramps. Denies any exertional chest pain or shortness of breath although he said he can not exercise much because of his fatigued and tiredness. He has no heart failure symptoms. No orthopnea, PND, leg edema. No prolonged palpitation irregular heartbeat. No lightheadedness, syncope. Recent echocardiogram shows normal LV ejection fraction with normally function bioprosthetic aortic valve with mildly dilated ascending aorta which is stable. His most recent LDL is 66 PFSH Medical History Numbness Thoracic aortic aneurysm (TAA) Sciatica Cervical spinal stenosis Peyronie's disease Sleep apnea Pancreatitis (~2003) Hyperlipidemia HTN (hypertension) Aortic stenosis Surgical History History of carpal tunnel release Hx of neck surgery History of cardiac cath (~03/2023) Aortic valve replaced (~04/2023) H/O colonoscopy (~10/2022) S/P cardiac catheterization Hx laparoscopic cholecystectomy Family History Father No problems noted. 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 Systems Const Denies chills, Denies fatigue, Denies fever(s), Denies frequent falls, Denies weakness, Denies weight gain and Denies weight loss ENT Denies dizziness Card Denies chest pain, Denies leg edema, Denies lightheadedness, Denies palpitations, Denies dyspnea, Denies dyspnea on exertion, Denies orthopnea and Denies other (loss of consciousness) Resp Denies cough, Denies dyspnea and Denies dyspnea on exertion GI Denies hematochezia and Denies change in stool character Musc Denies abnormal gait, Denies muscle weakness, Denies numbness, Denies radiating pain into limb and Denies tingling Neuro Denies abnormal gait, Denies dizziness, Denies frequent falls, Denies numbness, Denies tingling and Denies weakness Endo Denies fatigue and Denies palpitations Physical Exam Vital Signs: Last Vital Signs Pulse 60 07/02/25 13:57 BP 112/80 07/02/25 13:57 BMI result Body Mass Index 34.1 Const General: cooperative, healthy appearing, comfortable and no acute distress Orientation/consciousness: patient oriented x3 Neck Neck: Yes normal visual inspection and Yes no JVD Chest Chest palpation & inspection: other (Well-healed sternotomy site) Resp Effort & Inspection: normal respiratory effort Auscultation: clear to auscultation bilaterally, no crackles, no rales, no rhonchi and no wheezes Cardio Jugular venous distension: no JVD Palpation: normal PMI Rate: regular rate Rhythm: regular rhythm Heart sounds: S1 normal heart sound present, S2 normal heart sound present, no gallops, no murmurs and no rubs Peripheral pulses: Peripheral pulses 2+ throughout Neuro General: patient oriented x3 Extrem General: Yes normal to inspection and No no pedal edema Psych Appearance: grossly normal Mental Status: mental status grossly normal Speech and movement: Normal speech and movement present Office Procedures EKG Details: EKG shows normal sinus rhythm with occasional PVCs, unifocal with fixed inter coupling [id number], Complete Assessment & Plan Assessment & Plan (1) Aortic valve replaced: Onset Date: ~04/2023 Comment: 25 mm Inspiris valve Code(s): Z95.2 - Presence of prosthetic heart valve Category: Surgical Plan: Status post bioprosthetic aortic valve replacement which she is working well clinically as well as by echocardiogram. Continue low-dose aspirin therapy. Continue SBE prophylaxis as per ACC/aha guidelines. Continue aggressive blood pressure control. Will monitor by echocardiogram in a year's time. This is not responsible for his symptoms. (2) Thoracic aortic aneurysm: Code(s): I71.20 - Thoracic aortic aneurysm, without rupture, unspecified Category: Medical Plan: Mild thoracic aortic aneurysm again has remained stable. Continue aggressive blood pressure control. Advised to avoid sudden strenuous isometric exercise. Follow-up echocardiogram in 1 year's time. (3) CAD (coronary artery disease): Code(s): I25.10 - Atherosclerotic heart disease of jackson coronary artery without angina pectoris Category: Medical Plan: CAD which is nonobstructive by cardiac catheterization. Currently on low-dose aspirin therapy. Aggressive blood pressure control which is well optimized advised to monitor blood pressure at home maintain a log. Given his very diffuse and vague symptoms I am not sure if this could be related to statins. I have told him to get a statin holiday for about a month. He will report to me in a month's time. If his symptoms improve will have to look for an alternative for statin therapy to reduce his LDL cholesterol. This was discussed with him. He is agreeable. Continue workup for other noncardiac causes of fatigue through your office otherwise. Encouraged to exercise as tolerated. Will follow up in the clinic in 1 year's time after an echocardiogram. Thank you for allowing me to partake in his care Medications: Resumed aspirin (Ecotrin Low Strength) 81 mg PO DAILY 30 tabs 0RF I35.0 - Nonrheumatic aortic (valve) stenosis Coding Level of Care Code Est Pt Level 4 (86958) Complex EM visit Add On G2211 Diagnoses Aortic valve replaced Z95.2 Thoracic aortic aneurysm I71.20 CAD (coronary artery disease) I25.10 CPT Codes EKG - CPT: 29146-Uidxeoaakpheiwyrb, Complete ([id number])
[2025-07-02 13:57] VITALS: BP 112/80; PULSE 60; BMI 34.1
--- OUTSIDE RECORDS SUMMARY | 2025-07-02 14:29 | XMS_ITS | Patient Health Record ---
Author Organization Tonny Mcdermott MD Address [address] [place], [place] [id number] Care Team Providers Care [employer]zer Name Role Phone Tonny Mcdermott Primary Care Provider [phone] Allergies Allergen (clinical drug ingredient) Drug/Non Drug Allergy documented on EMR Reaction Allergy Type Onset Date Status penicillin (uncoded) rash Allergy Active Results Component Value Reference Range Notes FL guidance in OR Reviewed date:12/04/2024 04:33:34 PM Interpretation: Performing Lab: Notes/Report: [facility] [address] [place] [address] Fluoroscopy Report Signed Patient: Fredy Peterson MR#: [id number] 1145 : 1960 Acct:[id number] Age/Sex: 64 / M ADM Date: 08/16/24 Loc: HO.SSS Attending Dr: Homero Oliveira MD, PhD Ordering Physician: Homero Oliveira MD, PhD Date of Service: 08/16/24 Procedure(s): FL guidance in OR Accession Number(s): [id number] cc: Tonny Mcdermott MD; Homero Oliveira MD, PhD EXAMINATION: FLUORO GUIDANCE IN OR CLINICAL INFORMATION: C4-C5 ACDF. COMPARISON: None available. TECHNIQUE: Fluoroscopy supervised by: Dr. Oliveira. Fluoroscopy time: 4.2 seconds. Cumulative Dose: 1.0261 mGy. DAP: 0.4264 Gy-cm2 (oliva-centimeter squared). Images: 2. FINDINGS: C4-5 ACDF FL/FL guidance in OR IMPRESSION: Fluoroscopy during procedure. Please see procedure report for additional information. Electronically signed by: Hayley Jin MD 12/04/2024 01:35 PM [facility] Dictated By: Hayley Jin MD Signed By: <Electronically signed by Hayley Jin MD in OV> 12/04/24 1335 DD/ 0840 TD/TT: 08/16/24 0945 Managing Attorney: [place] [address] Fluoroscopy Report Signed Patient: Fredy Peterson MR#: [id number] 1145 : 1960 Acct:[id number] Age/Sex: 64 / M ADM Date: 08/16/24 Loc: HO.SSS Attending Dr: Naya Oliveira MD, PhD Ordering Physician: Homero Oliveira MD, PhD Date of Service: 08/16/24 Procedure(s): FL guidance in OR Accession Number(s): [id number] cc: Tonny Mcdermott MD; Homero Oliveira MD, PhD EXAMINATION: FLUORO GUIDANCE IN OR CLINICAL INFORMATION: C4-C5 ACDF. COMPARISON: None available. TECHNIQUE: Fluoroscopy supervis ed by: Dr. Oliveira. Fluoroscopy time: 4. 2 seconds. Cumulative Dose: 1.0261 mGy. DAP: 0.4264 Gy-cm2 (oliva-centimeter squared). Images: 2. FINDINGS: C4-5 ACDF FL/FL guidance in OR IMPRESSION: Fluoroscopy during procedure. Please see procedure report for additional information. Electronically laurence d by: Hayley iJn MD 12/04/2024 01:35 PM [facility] Dictated By: Hayley Jin MD Signed By: <Electronically signed by Hayley Jin MD in OV> 12/04/24 1335 DD/ 0840 TD/TT: 08/16/24 0945 Managing Attorney: MERC[place] Liver Panel Reviewed date:08/29/2024 03:57:46 PM Interpretation: Performing Lab:[facility], [address] [place] [phone] Notes/Report: Bilirubin Total 0.9 0.0-1.0 mg/dL Bilirubin Direct 0.3 0.0-0.5 mg/dL Aspartate Amino Transferase 29 5-37 U/L Alanine Aminotransferase 21 0-40 U/L Total Protein 6.7 6.5-8.0 g/dL Albumin Level 4.0 3.5-5.0 g/dL Alkaline Phosphatase 86 39-117 U/L Glucose Fasting Reviewed date:08/29/2024 03:48:07 PM Interpretation: Performing Lab:[facility], [address] [place] [phone] Notes/Report: Glucose Fasting 126 60-99 mg/dL A fasting glucose of 126 mg/dl or greater on more than one occasion is considered diagnostic of diabetes. Lipid Panel with Reflex Reviewed date:08/30/2024 12:22:42 PM Interpretation: Performing Lab:[facility], [address] [place] [phone] Notes/Report: Triglycerides 96 <150 mg/dL Desirable Triglyceride: [...] A1c Reviewed date:08/29/2024 03:51:33 PM Interpretation: Performing Lab:[facility], [address] [place] [phone] Notes/Report: Hemoglobin A1c % 5.7 <6.0 % [...] average glucose, using the formula of the Y9I-Vvqnpis Average Glucose study (ADAG), Diabetes Care, Vol.31,#8, 2007 Pathology Reviewed date:11/15/2024 04:54:21 PM Interpretation: Performing Lab:[facility], [address] [place] [phone] Notes/Report: -- ---- Name: Fredy Peterson Age/Sex: 64/M : 1960 [id number] [id number] Attend Dr: Radames Molina MD Re11/09/24 Status : [facility] Location: [facility] Disch: -- ---- SPEC : [id number] RECD : 11/09/24 STATUS: CHAPITO LÓPEZ NUM: [id number] GABI: 11/09/[address] [facility] [address]: Radames Molina MD ENTERED: 11/09/24-10 43 SP TYPE: Surgical OTHR DR: Tonny Mcdermott MD ORDERED: HE Stain/3, Gross Micro L4 Diagnosis Colon, at 50 cm, polyp: Tubular adenoma; negative for high-grade dysplasia and carcinoma. Clinical History Pre-Op Dx: Screening Post-Op Dx: Colon polyp, diverticulosis, hemorrhoids Microscopic Description Microscopic sections reviewed. Material Received Polyp at 50 cm Gross Description Received in formalin labeled ?polyp at 50 cm? is a 0.25 cm ross papular tissue fragment, submitted in toto in a cassette labeled A. CEDS Copies To: Tonny Mcdermott MD [facility] [address] [place] [address] Drive [address] [place] [address] Radames Molina MD [facility] [address] [place] [address] -- ---- Signed (signature on file) Bernadette [place] 11/15/24 1537 -- ---- END OF REPORT Complete Blood Count Auto Di ff Reviewed date:11/12/2024 04:57:27 PM Interpretation: Performing Lab:[facility] [address] [phone] Notes/Report: White Blood Count 7.5 4.8-10.8 X10*3/uL Red Blood Count 4.41 4.60-5.80 X10*6/uL Hemoglobin 14.0 14.0-18.0 g/dl Hematocrit 39.2 42.0-52.0 % Mean Corpuscular Volume 88.9 80.0-98.0 fL Mean Corpuscular Hemoglobin 31.7 27.0-33.0 pg Mean Corpuscular HGB Conc 35.7 31.0-36.0 g/dl Red Cell Distribution Width 12.6 11.0-16.0 % Platelet Count 183 160-400 X10*3/uL Mean Platelet Volume 10.1 9.4-12.4 fL Neutrophils Percent Auto 49.8 45-73 % Imm Gran Pct Auto 0.3 0.0-0.4 % Lymphocytes Percent Auto 34.0 20-40 % Monocytes Percent Auto 10.3 2-11 % Eosinophils Percent Auto 4.7 0-4 % Basophils Percent Auto 0.9 0-2 % NRBC Pct Auto 0.0 0.0-0.2 /100WBC Neutrophils Absolute Auto 3.7 2.0-8.3 x10*3/uL Imm Gran Abs Auto 0.02 0.00-0.03 X10*3/uL Lymphocytes Absolute Auto 2.5 1.2-4.9 X10*3/uL Monocytes Absolute Auto 0.8 0.1-1.2 X10*3/uL Eosinophils Absolute Auto 0.4 0.0-0.4 X10*3/uL Basophils Absolute Auto 0.1 0.0-0.2 X10*3/uL NRBC Abs Auto 0.000 0.0-0.012 X10*3/uL Immunoglobulin E Reviewed date:11/15/2024 12:27:54 PM Interpretation: Performing Lab:[address] [phone] Notes/Report: Immunoglobulin E 14 <TB=012 kU/L Resp Allergy Profile Region I Reviewed date:11/15/2024 04:53:41 PM Interpretation: Performing Lab:[address] [phone] Notes/Report: [id number] Mouse Urine <0.10 Class Mouse Urine Protein 0 T177-TyB Cockroach, Lithuanian 0.16 Class Cockroach 0/1 D002 - IgE D farinae <0.10 Class Dermatophagoides farinae 0 E001 - IgE Cat Dander <0.10 Class Cat Dander 0 THIS TEST WAS PERFORMED AT: [facility] [address] [place] [phone] SYDNEY CLARKE MD E005 - IgE Dog Dander <0.10 Class Dog Dander 0 THIS TEST WAS PERFORMED AT: [facility] [address] [place] [address] SYDNEY CLARKE MD G006 - IgE Kenton Grass <0.10 Class Kenton Grass 0 M002 - IgE Cladosporium herbar <0.10 Class Cladosporium herbarum 0 M003 - IgE Aspergillus fumigat <0.10 Class Aspergillus fumigatus 0 M006 - IgE Alternaria alternat <0.10 Class Alternaria alternata 0 THIS TEST WAS PERFORMED AT: [facility] [address] [place] [phone] SYNDEY CLARKE MD T006 - IgE Childs, Mountain <0.10 Class Mountain Childs 0 T007 - IgE [place], White <0.10 Class [place] 0 T010 - IgE [place] <0.10 Class [place] Tree 0 T011 - IgE Maple [place] <0.10 Class [place] 0 T014 - IgE Robertson <0.10 Class Robertson 0 T015 - IgE Nick, White <0.10 Class White Nick 0 T070 - IgE White Byers <0.10 Class White Byers 0 W001 - IgE Ragweed, Short <0.10 Class Common Ragweed 0 W006 - IgE Mugwort <0.10 Class Mugwort 0 D001 IgE D pteronyssinus <0.10 Class Derm. pterony 0 G002 IgE Bermuda Grass <0.10 Class Bermuda Grass 0 M001 IgE Penicillium chrysogen <0.10 Class Penicillium crysogenum 0 T003 IgE Common Silver Birch <0.10 Class Birch 0 T008 IgE Elm, Irish <0.10 Class Elm 0 T001 IgE Maple/Bremer <0.10 Class Maple Bremer 0 W014 IgE Pigweed, Common <0.10 Class Rough Pigweed 0 W018 IgE Sheep Burton <0.10 Class Sheep Burton 0 Allergen Comment See Below Specific Level of Allergen IGE Class kU/L Specific IGE Antibody ----- --------- 0 <0.10 Absent/Undetectable 0/1 0.10-0.34 Very Low Level 1 0.35-0.69 Low Level 2 0.70-3.49 Moderate Level 3 3.50-17.4 High Level 4 17.5-49.9 Very High Level 5 50-100 Very High Level 6 >100 Very High Level The clinical relevance of allergen results of 0.10-0.34 kU/L are undetermined and intended for specialist use. Allergens denoted with a include results using one or more analyte specific reagents. In those cases, the test was developed and its analytical performance characteristics have been determined by [employer]. It has not been cleared or approved by the U.S. Food and Drug Administration. This assay has been validated pursuant to the CLIA regulations and is used for clinical purposes. THIS TEST WAS PERFORMED AT: [facility] [address] [place] [phone] chest wo con Reviewed date:02/05/2025 12:22:17 PM Interpretation: Performing Lab: Notes/Report: [place] [address] CT Scan Report Signed Patient: Fredy Peterson MR#: [id number] 1145 : 1960 Acct:[id number] Age/Sex: 64 / M ADM Date: 02/01/25 Loc: HO.CT Attending Dr: Alessandra Guajardo NP Ordering Physician: Alessandra Guajardo NP Date of Service: 02/01/25 Procedure(s): CT chest wo IV con Accession Number(s): [id number] cc: Tonny Mcdermott MD; Alessandra Guajardo NP Report Number: [id number]: Total DLP = 211.00 mGy-cm CLINICAL HISTORY: R91.1 - Solitary pulmonary nodule CT CHEST WITHOUT CONTRAST Comparison: CR/SR - XR CHEST 2V - 10/19/22 15:25 EST Findings: Prominent calcific plaque in the aorta and coronary arteries. No thoracic aortic aneurysm. Median sternotomy changes with an aortic valve prosthesis. No significant pericardial effusion. No thyromegaly or mediastinal lymphadenopathy. Bilateral gynecomastia. No consolidation, pleural effusion or pneumothorax. No pulmonary mass or suspicious pulmonary nodule. Cholecystectomy. The bones are intact. Mild multilevel disc space narrowing with large flowing endplate osteophytes can be seen with DISH. IMPRESSION: 1. No suspicious pulmonary lesion. 2. No acute process. This document has been electronically signed by: Qing Gomez DO on 02/04/2025 14:04:11 Dictated By: Qnig Gomez MD Signed By: <Electronically signed by Qing Gomez MD in OV> 02/04/25 1405 DD/ 03 TD/TT: 02/04/251403 Managing Attorney: [place] [address] CT Scan Report Signed Patient: Fredy Peterson MR#: [id number] 1145 : 1960 Acct:[id number] Age/Sex: 64 / M ADM Date: 02/01/25 Loc: HO.CT Attending Dr: Miranda Guajardo NP Ordering Physician: Alessandra Guajardo NP Date of Service: 02/01/25 Procedure(s): [facility] Accession Number(s): [id number] cc: Tonny Mcdermott MD; Alessandra Guajardo NP Report Number: [id number]: Total DLP = 211.00 mGy-cm CLINICAL HISTORY: R91.1 - Solitary pulmonary nodule CT CHEST WITHOUT CONTRAST Comparison: CR/SR - XR CHEST 2V - 10/19/22 15:25 EST Findings: Prominent calcific plaque in the aorta and coronary arteries. No thoracic aortic aneurysm. Median sternotomy changes with an aortic valve prosthesis. No significant pericardial effusion. No thyromegaly or mediastinal lymphadenopathy. Bilateral gynecomastia. No consolidation, pleural effusion or pneumothorax. No pulmonary mass or suspicious pulmonary nodule. Cholecystectomy. The bones are intact. Mild multilevel disc space narrowing with large flowing endplate osteophytes can be seen with DISH. IMPRESSION: 1. No suspicious pulmonary lesion. 2. No acute process. This document has be en electronically signed by: Qing Gomez DO on 02/04/2025 14:04:11 Dictated By: Qing Gomez MD Signed By: <Electronically signed by Qing Gomez MD in OV> 02/04/251404 DD/ 03 TD/TT: 02/04/251403 Managing Attorney: Complete Blood Count Auto Di ff Reviewed date:02/23/2025 03:47:20 PM Interpretation: Performing Lab:[facility], [address] [place] [phone] Notes/Report: White Blood Count 6.9 4.8-10.8 X10*3/uL Red Blood Count 4.49 4.60-5.80 X10*6/uL Hemoglobin 14.1 14.0-18.0 g/dl Hematocrit 40.8 42.0-52.0 % Mean Corpuscular Volume 90.9 80.0-98.0 fL Mean Corpuscular Hemoglobin 31.4 27.0-33.0 pg Mean Corpuscular HGB Conc 34.6 31.0-36.0 g/dl Red Cell Distribution Width 12.9 11.0-16.0 % Platelet Count 152 160-400 X10*3/uL Mean Platelet Volume 10.9 9.4-12.4 fL Neutrophils Percent Auto 65.3 45-73 % Imm Gran Pct Auto 0.4 0.0-0.4 % Lymphocytes Percent Auto 19.1 20-40 % Monocytes Percent Auto 9.1 2-11 % Eosinophils Percent Auto 5.2 0-4 % Basophils Percent Auto 0.9 0-2 % NRBC Pct Auto 0.0 0.0-0.2 /100WBC Neutrophils Absolute Auto 4.5 2.0-8.3 x10*3/uL Imm Gran Abs Auto 0.03 0.00-0.03 X10*3/uL Lymphocytes Absolute Auto 1.3 1.2-4.9 X10*3/uL Monocytes Absolute Auto 0.6 0.1-1.2 X10*3/uL Eosinophils Absolute Auto 0.4 0.0-0.4 X10*3/uL Basophils Absolute Auto 0.1 0.0-0.2 X10*3/uL NRBC Abs Auto 0.000 0.0-0.012 X10*3/uL Comprehensive Met. Panel Reviewed date:02/23/2025 03:46:04 PM Interpretation: Performing Lab:[facility], [address] [place] [phone] Notes/Report: Sodium 138 135-145 mmol/L Potassium 3.8 3.3-5.1 mmol/L Chloride 105 96-108 mmol/L Carbon Dioxide 28 22-29 mmol/L Anion Gap 9 12-20 Blood Urea Nitrogen 15 9-16 mg/dL Creatinine 0.80 0.5-1.4 mg/dL Estimated Glomerular Filt Rate > 60 Chronic Kidney Disease: Estimated GFR < 60 mL/min/1.73m2 Severe Kidney Disease: Estimated GFR < 15 mL/min/1.73m2 Glucose Random 125 60-115 mg/dL Calcium 9.0 8.4-10.2 mg/dL Bilirubin Total 0.9 0.0-1.0 mg/dL Aspartate Amino Transferase 40 5-37 U/L Alanine Aminotransferase 31 0-40 U/L Total Protein 6.5 6.5-8.0 g/dL Albumin Level 3.9 3.5-5.0 g/dL Alkaline Phosphatase 81 39-117 U/L Lipid Panel Reviewed date:02/23/2025 03:45:42 PM Interpretation: Performing Lab:[facility], [address] [place] [phone] Notes/Report: Triglycerides 52 <150 mg/dL Desirable Triglyceride: less than 150 mg/dL Borderline High Triglyceride 150-199 mg/dL High Triglyceride: 200-499 mg/dL Very High Triglyceride: greater than or equal to 5OO mg/dL Cholesterol 133 <200 mg/dL Desirable Cholesterol: less than 200 mg/dL Borderline High Cholesterol: 200-239 mg/dL High Cholesterol: greater than 239 mg/dL LDL Cholesterol Calculated 66 <100 mg/dL Desirable LDL: less than 100 mg/dL Near Optimal/Above Optimal LDL: 110-129 mg/dL Borderline High LDL: 130-159 mg/dL High LDL: 160-189 mg/dL Very High LDL: greater than or equal to 190 mg/dL HDL Cholesterol 57 >40 mg/dL Desirable HDL: greater than 40 mg/dL Note: This HDL assay may give artificially low results in patients with liver disease. PSA,Total (Free>4and<10) Reviewed date:02/23/2025 03:45:19 PM Interpretation: Performing Lab:[address] [phone] Notes/Report: PSA,Total (Free>4and<10) 0.78 0.00-4.00 ng/mL A Free PSA was not [...] Chemiluminescent Microparticle Immunoassay (CMIA) Microalbumin, Random Reviewed date:02/23/2025 03:46:30 PM Interpretation: Performing Lab:[facility], [address] [place] [phone] Notes/Report: Creatinine Urine 169.81 Microalbumin Urine 99.0 Microalbum/Creatinine Ratio Ur 58.3 <30 ug/mg cr Albumin/Creatinine Ratio Reference Ranges: Normal: < 30 ug/mg creatinine Microalbuminuria: 30 - 300 ug/mg creatinine Clinical Albuminuria: > 300 ug/mg creatinine Hemoglobin A1c Reviewed date:02/23/2025 03:46:59 PM Interpretation: Performing Lab:[address] [phone] Notes/Report: Hemoglobin A1c % 5.8 <6.0 % Hemoglobin A1C Reference Range Adults: 4.8 - 6.0 % Non diabetic: < 6.0 % Goal: < 7.0 % Additional Action Suggested: > 8.0 % Note: Hemoglobin A1c results are invalid for patients with abnormal amounts of HbF. Blood transfusions may impact the HbA1c concentration in the patient sample. Estimated Average Glucose 120 eAG = Estimated average glucose which is %A1C expressed as average glucose, using the formula of the V2S-[place] Average Glucose study (ADAG), Diabetes Care, Vol.31,#8, 2007 UA CC w/rflx Micro + Cult Reviewed date:02/23/2025 03:46:49 PM Interpretation: Performing Lab:[facility], [address] [place] [phone] Notes/Report: [id number] Urine, Clean Catch Color Urine Dark Yellow Appearance Urine Clear PH 5.5 5.0-9.0 Glucose Urine UA Negative Negative mg/dL Urine Blood Negative Negative Specific [place] - Urine 1.020 1.005-1.025 Urine Protein Trace Neg-Trace mg/dL Urine Ketones Negative Negative mg/dL Nitrite Urine Negative Negative Leukocyte Esterase Urine Negative Negative Complete Blood Count Auto Di ff Reviewed date:05/12/2025 07:35:35 PM Interpretation: Performing Lab:[facility], [address] [place] [phone] Notes/Report: White Blood Count 5.2 4.8-10.8 X10*3/uL Red Blood Count 4.13 4.60-5.80 X10*6/uL Hemoglobin 13.3 14.0-18.0 g/dl Hematocrit 37.4 42.0-52.0 % Mean Corpuscular Volume 90.6 80.0-98.0 fL Mean Corpuscular Hemoglobin 32.2 27.0-33.0 pg Mean Corpuscular HGB Conc 35.6 31.0-36.0 g/dl Red Cell Distribution Width 12.6 11.0-16.0 % Platelet Count 143 160-400 X10*3/uL Mean Platelet Volume 10.4 9.4-12.4 fL Neutrophils Percent Auto 62.1 45-73 % Imm Gran Pct Auto 0.4 0.0-0.4 % Lymphocytes Percent Auto 19.0 20-40 % Monocytes Percent Auto 13.3 2-11 % Eosinophils Percent Auto 4.0 0-4 % Basophils Percent Auto 1.2 0-2 % NRBC Pct Auto 0.0 0.0-0.2 /100WBC Neutrophils Absolute Auto 3.2 2.0-8.3 x10*3/uL Imm Gran Abs Auto 0.02 0.00-0.03 X10*3/uL Lymphocytes Absolute Auto 1.0 1.2-4.9 X10*3/uL Monocytes Absolute Auto 0.7 0.1-1.2 X10*3/uL Eosinophils Absolute Auto 0.2 0.0-0.4 X10*3/uL Basophils Absolute Auto 0.1 0.0-0.2 X10*3/uL NRBC Abs Auto 0.000 0.0-0.012 X10*3/uL B Type Natriuretic Peptide Reviewed date:05/12/2025 07:34:45 PM Interpretation: Performing Lab:[facility], [address] [place] [phone] Notes/Report: B Type Natriuretic Peptide 104 <100 pg/mL Immunoglobulin E Reviewed date:05/14/2025 05:04:28 PM Interpretation: Performing Lab:[facility], [address] [place] [phone] Notes/Report: Immunoglobulin E 12 <NM=186 kU/L THIS TEST WAS PERFORMED AT: [facility] [address] [place] [phone] SYDNEY CLARKE MD Reason For Referral Reason SHORTNESS OF BREATH ON EXERTION Diagnosis 1 Shortness of breath on exertion (R06.02) Referral Organization Tonny Mcdermott MD Referring Provider First Name Tonny Referring Provider Last Name Baldemar Referring Provider Speciality Internal M edicine Referred Provider MILKA PROCTOR Referred Provider Specialty Pulmonary Di seases General Notes Mckenzie Wilkins 09/24/2024 03:59:50 PM EDT > THE REFERRAL HAS BEEN FAXED TO [facility], Mckenzie Wilkins 11/15/2024 08:02:50 AM EST > OFFICE NOTE RECD Referral Priority Routine Referral Appointment Date 11/12/2024 Medications Medication SIG (Take, Route, Frequency, Duration) Notes Start Date End Date Status Fluticasone Propionate 93 MCG/ACT 2 sprays (1 spray in each nostril) Nasally Twice a day Active Breyna 160-4.5 MCG/ACT as directed Inhalation Active Lisinopril-hydroCHLOROthi azide 10-12.5 MG TAKE 1 TABLET BY MOUTH EVERY DAY for 90 Active Clobetasol Propionate 0.05 % 1 application to affected area Externally Twice a day for 10 days 06/21/2014 Not-Taking Albuterol Sulfate HFA 108 (90 Base) MCG/ACT 1 puff as needed Inhalation every 4 hrs for 30 days 08/23/2022 Not-Taking Ibuprofen 800 MG TAKE 1 TABLET BY CONTRERAS TH EVERY 8 HOURS WITH FOOD OR MILK NEEDED 30 for 30 Active Atorvastatin Calcium 40 MG TAKE 1 TABLET BY MOUTH EVERY DAY for 90 Active Metoprolol Tartrate 25 MG 1 tablet with food Orally Twice a day Active Aspir-Low 81 MG 1 tablet Orally Once a day for 30 day(s) Active Immunizations Vaccine Route Administration Date Status Comme nts DECLINED, FLU Unknown 09/24/2013 Administered Tetanus Unknown 08/30/2016 Administered WAS CUT AT WORK. Shingrix IM Intramuscular 11/20/2019 Administered pt was given the vaccine at [facility] in [place]. Shingrix IM Intramuscular 01/28/2020 Administered pt was given the vaccine and at the [facility]. SARS-COV-2 Pfizer Unknown 03/10/2021 Administered SARS-COV-2 Pfizer Unknown 03/31/2021 Administered DECLINED, FLU Unknown 10/10/2014 Refused Flu Vaccine Unknown 10/20/2015 Refused PPSV23 (Pnemovax) Unknown 10/20/2015 Refused Fluarix Quadrivalent Unknown 12/21/2016 Refused Fluarix Quadrivalent Unknown 09/27/2017 Refused Fluarix Quadrivalent Unknown 01/24/2020 Refused Fluarix Quadrivalent Unknown 01/26/2021 Refused Fluarix Quadrivalent Unknown 08/18/2021 Refused Fluarix Quadrivalent Unknown 08/23/2022 Refused Fluarix Quadrivalent Unknown 08/18/2023 Refused Influenza High Dose Unknown 12/10/2024 Refused Social History Tobacco Use: Social History [...] year? No Points 0 Interpretation Negative Problems Problem Type SNOMED Code ICD Code Onset Dates Problem Status W/U Status Risk Notes Problem 32255107 Prostatism (N40.0) Active confirmed Problem 836780210 Tubular adenoma (D36.9) Active confirmed Problem 28053464 Hyperlipidemia, unspecified (E78.5) Active confirmed Problem Hypercalcemia (54015345) Hypercalcemia (E83.52) Active confirmed Problem 826507370 Sleep related hypoventilation in conditions classified elsewhere (G47.36) Active confirmed Problem 54549500 Atherosclerosis of aorta (I70.0) Active confirmed Problem 8981633 Gynecomastia (N62) Active confirmed Problem 78934069 Essential hypertension (I10) Active confirmed Problem 4495424 Prediabetes (R73.09) Active confirmed Problem 848215338 Erectile dysfunction, unspecified erectile dysfunction type (N52.9) Active confirmed Problem 313687441 Cervical disc disease (M50.90) Active confirmed Problem 25413642 Mild aortic stenosis (I35.0) Active confirmed Problem 657882212 Nonrheumatic aortic valve insufficiency (I35.1) Active confirmed Problem 313863930 Severe aortic stenosis (I35.0) Active confirmed Problem 239908573 Moderate aortic stenosis (I35.0) Active confirmed Problem Peyronie's disease (4967349) Peyronie's disease (N48.6) Active confirmed Problem History of heart valve repair with prosthesis (643442100336195 ) H/O aortic valve replacement (Z95.2) Active confirmed Problem 80959832 Muscle fasciculation (R25.3) Active confirmed Vital Signs Blood pressure diastolic 80 mm Hg 03/04/2025 glen ght is up 4 pounds since 12-10-24 Height 70 in 03/04/2025 weight is up 4 pounds since 12-10-24 Blood pressure systolic 162 mm Hg 03/04/2025 weig ht is up 4 pounds since 12-10-24 Weight 248 lbs 03/04/2025 weight is up 4 pounds since 12-10-24 BMI 35.58 kg/m2 03/04/2025 weight is up 4 pounds since 12-10-24 Procedures Procedure Date Ordered Date Performed Result Body Sit e Colonoscopy, Screening 11/09/2024 11/09/2024 5y repeat Encounters Encounter Location Date Provider Diagnosis Tonny Mcdermott MD [address] [place] [address] Drive [address] [place] [id number] 09/24/2024 Tonny Mcdermott H/O aortic valve replacement Z95.2 ; Cervical disc disease M50.90 and Shortness of breath on exertion R06.02 Tonny Mcdermott MD [address] [place] [address] Drive [address] [place] [id number] 12/10/2024 Tonny Mcdermott Essential hypertension I10 ; H/O aortic valve replacement Z95.2 and Cervical disc disease M50.90 Tonny Mcdermott MD [address] [place] [id number] 03/04/2025 Tonny Mcdermott Annual physical exam Z00.00 ; Hyperlipidemia, unspecified E78.5 ; Prediabetes R73.09 and Essential hypertension I10 Assessments Encounter Date Diagnosis (ICD Code) Assessment Notes Treatment Notes Treatment Clinical Notes Section Notes 09/24/2024 H/O aortic valve replacement (ICD-10 - Z95.2) need the results of echo done by dr kam this month/ REQUEST MADE [place] [facility] 09/24/2024 Cervical disc disease (ICD-10 - M50.90) seems that he may be having trouble with disc still 12/10/2024 Essential hypertension (ICD-10 - I10) well controlled 12/10/2024 H/O aortic valve replacement (ICD-10 - Z95.2) still short of breath 03/04/2025 Annual physical exam (ICD-10 - Z00.00) Labs reviewed and discussed with patient 09/24/2024 Shortness of breath on exertion (ICD-10 - R06.02) at times gets wheezing and tried inhaler with no improvemnt/ referrlal to [facility] [place] 12/10/2024 Cervical disc disease (ICD-10 - M50.90) has had sugrgery 03/04/2025 Hyperlipidemia, unspecified (ICD-10 - E78.5) try to get back on diet 03/04/2025 Prediabetes (ICD-10 - R73.09) still with a good a1c 03/04/2025 Essential hypertension (ICD-10 - I10) runnin g a little high today 12/10/2024 Other get copy of the ct chest from pulmonqry at [facility] Plan Of Treatment Pending Test Test Name Order Date Electrocardiogram (EKG) 01/18/2019 Electrocardiogram (EKG) 01/24/2020 Electrocardiogram (EKG) 10/20/2015 MRI CERVICAL SPINE NO CONTRAST 3 MRI CERVICAL SPINE NO CONTRAST 3 XR CHEST 2 VIEW PA & LAT 10/18/2022 Next Appt Details Provider Name:Tonny Wright ier, 09/10/2025 07:15:00 AM, [address], [address], [place], [place], [id number], Provider Name:oTnny Wright ier, 09/16/2025 03:30:00 PM, [address], [address], [place], [place], [id number], Provider Name:Tonny Wright ier, 03/03/2026 07:00:00 AM, [address], [address], [place], [id number], Provider Name:Tonny Wright ier, 03/10/2026 03:30:00 PM, [address], [address], [place], [id number], Insurance Providers Payer Name Payer Address Payer Phone Subscriber Number Group Number Insured Name Patient Relationship to Insured Coverage Start Date Coverage End Date Tagwhat [facility] [address] KASSANDRA Elias [phone] [id number] Fredy Peterson Self - patient is the insured Medical (General) History Medical History History ICD Code Colonoscopy in 2005; repeat 10 years; colonoscopy 08/22/[address] Molina - repeat 08/17/22 NEEDS ECHO 2014. had echo in 2013 was no rmal needs ultrasound aorta 06/13; done 02/02/19 - repeat 2 years repeat showed no aneurysm Surgical History Surgery Date(Month/Year) Laparoscopic cholecystectomy by Dr. Oliva 04/2014
--- OUTSIDE RECORDS SUMMARY | 2025-07-02 14:29 | XMS_ITS | Clinical Summary ---
Author Organization [facility] Facility Address [address] [place], [place] [address] [address] Care Team Providers Care Chargemaster Specialist Name Role Phone Unavailable Primary Care Provider [...] patient's age to complete this topic Insurance [employer] ([id number]) [employer] ([id number])
--- OUTSIDE RECORDS SUMMARY | 2025-07-02 14:30 | XMS_ITS | Patient Health Record ---
Author Organization [facility] [place] Address [address] [place] [address] Care Team Providers Care Draftsperson Name Role Phone Tonny Mcdermott MD Primary Care Provider Deborah Winston Unavailable [phone] Allergies Allergen (clinical drug ingredient) Drug/Non Drug [...] Treatment Pending Test Test Name Order Date [id number] NAIL, 6 OR MORE 01/24/2012 [id number] NAIL, 6 OR MORE 10/04/2013 [id number] Plate 01/24/2012 04704- Debride <25 sq cm 01/24/2012 47532- Debride <25 sq cm 02/21/2012 98134- Debride <25 sq cm 07/17/2012 00276- Debride <25 sq cm 10/04/2013 Insurance Providers Payer Name Payer Address Payer Phone Subscriber Number Group Number Insured Name Patient Relationship to Insured Coverage Start Date Coverage End Date [facility]-[address] [address] [address] [place], [place] [id number] [phone] [id number] Fredy Peterson Self - patient is the insured 0 Medical (General) History Medical History History ICD Code hypertension Cholesterol Surgical History Surgery Date(Month/Year) Gallbladder removal 2015
== END 2025-07-02 14:15 | disposition home or self-care (01) ==
LOC: HO.HCS 13:47
PROVIDERS: PCP Internal Medicine; Visit Provider Internal Medicine Cardiovascular Disease
DX: Z95.2 Presence of prosthetic heart valve (principal); I71.20 Thoracic aortic aneurysm, without rupture, unspecified; I25.10 Atherosclerotic heart disease of native coronary artery without angina pectoris
CPT/HCPCS: 93010; 99214; G2211

== ENCOUNTER → 2025-07-02 13:47 | Outpatient (BNVA) | payer OTHER, SELFPAY | PROVIDERS: PCP Internal Medicine; Visit Provider Internal Medicine Cardiovascular Disease | DX: I71.20 Thoracic aortic aneurysm, without rupture, unspecified (principal) | CPT/HCPCS: 93005 ==

== ENCOUNTER 2025-09-07 09:01 | Outpatient (REF) | payer OTHER, SELFPAY ==
--- OUTSIDE RECORDS SUMMARY | 2025-09-07 09:04 | XMS_ITS | Clinical Summary ---
Author Organization [facility] Facility Address [address] [place], [place] [address] [address] Care Team Providers Care Artificial Flowers Supervisor Name Role Phone Unavailable Primary Care Provider [...] patient's age to complete this topic Insurance [employer] ([id number]) [employer] ([id number])
--- OUTSIDE RECORDS SUMMARY | 2025-09-07 09:04 | XMS_ITS | Patient Health Record ---
Author Organization [facility] [place] Address [address] [place] [address] Care Team Providers Care Cutting And Boning Supervisor Name Role Phone Tonny Mcdermott MD Primary Care Provider Deborah Winston Unavailable [phone] Allergies Allergen (clinical drug ingredient) Drug/Non Drug [...] Treatment Pending Test Test Name Order Date [id number] NAIL, 6 OR MORE 01/24/2012 [id number] NAIL, 6 OR MORE 10/04/2013 [id number] Plate 01/24/2012 98343- Debride <25 sq cm 01/24/2012 28257- Debride <25 sq cm 02/21/2012 49555- Debride <25 sq cm 07/17/2012 44213- Debride <25 sq cm 10/04/2013 Insurance Providers Payer Name Payer Address Payer Phone Subscriber Number Group Number Insured Name Patient Relationship to Insured Coverage Start Date Coverage End Date [facility]-[address] [address] [address] [place], [place] [id number] Fredy Peterson Self - patient is the insured 0 Medical (General) History Medical History History ICD Code hypertension Cholesterol Surgical History Surgery Date(Month/Year) Gallbladder removal 2015
[2025-09-07 11:21] LABS: Hemoglobin A1C 141.8419 umol/L
[2025-09-07 12:11] LABS: Alanine Aminotransferase 25 U/L (0-40); Albumin Level 4.4 g/dL (3.5-5.0); Alkaline Phosphatase 73 U/L (39-117); Aspartate Amino Transferase 39 U/L (5-37); Cholesterol 218 mg/dL (<200); HDL Cholesterol 58 mg/dL (>40); Total Protein 6.9 g/dL (6.5-8.0); Triglycerides 67 mg/dL (<150)
[2025-09-07 12:29] LABS: Reflex LDLD? No
== END 2025-09-07 09:02 | disposition home or self-care (01) ==
LOC: HO.HMGCLDS 09:01
PROVIDERS: Visit Provider Internal Medicine
DX: E78.5 Hyperlipidemia, unspecified (principal); R73.09 Other abnormal glucose
CPT/HCPCS: 36415; 80061; 80076; 82947; 83036